=== PATIENT | female | born 1950 | race Caucasian/White ===

== ENCOUNTER 2020-08-18 13:10 | Outpatient (REF) | payer MEDICARE, SELFPAY ==
--- NOTE | 2020-08-18 13:18 | MM_ITS ---
EXAMINATION: MM SCREENING DIGITAL BREAST TOMOSYNTHESIS, BILATERAL CLINICAL INFORMATION: Screening. Asymptomatic. No previous breast surgery. BRCA negative. Family history breast cancer mother, age 79. The lifetime risk of breast cancer based on the Tyrer-Cuzick Model is 7%. COMPARISON: Mammography: 08/09/2019, 08/07/2018, 08/03/2017, 07/28/2016, 07/22/2015 TECHNIQUE: Digital breast tomosynthesis is performed in both the craniocaudal and mediolateral oblique views along with computer-aided detection (CAD). Synthesized 2D images are generated from the tomosynthesis. FINDINGS: There are scattered areas of fibroglandular density (ACR BI-RADS breast composition Category b). The right breast shows no significant changes from prior studies. There is no mass or architectural abnormality. Neither breast shows abnormal calcifications. The bilateral axilla and skin contours are unremarkable. The left CC tomography shows questionable radiating lines posterior outer quadrant approximately 9 cm from nipple. There is no correlate on the MLO view. Suspect summation artifact or incompletely compressed glandular tissue. Patient will be recalled in order to fully characterize. MM/MM tomosynthesis screening BI IMPRESSION: 1. Left: Questionable architectural changes posterior outer quadrant on CC tomography, likely summation artifact or incompletely compressed glandular tissue. 2. Right: No mammographic evidence of malignancy. ASSESSMENT: BI-RADS 0: Incomplete - Need Additional Imaging Evaluation RECOMMENDATION: 1. Additional views of the left breast (3-D spot CC, 3-D rolled CC x2). 2. Targeted ultrasound if warranted after review of the additional views. 3. Radiology department staff will contact the patient for additional imaging. This patient's information was entered into a reminder system with a target due date for their next mammogram.
--- NOTE | 2020-08-18 13:19 | MM_ITS ---
EXAMINATION: BONE DENSITOMETRY CLINICAL INDICATION: Asymptomatic menopausal. COMPARISON: Previous BD dated 08/07/2018 and baseline BD dated 07/08/2008. TECHNIQUE: Using a Photomedex DXA System (software version: 13.1) manufactured by [employer], dual-energy x-ray absorptiometry was performed of the lumbar spine and left hip. The images are of good technical quality. Summary results are attached. FINDINGS: AP SPINE L1-L4 (excluding L2 and L3): The data of L1-L4 has been changed to exclude the L2 and L3 vertebral bodies, because degenerative changes at these levels may cause overestimation of lumbar spine density. Current: BMD 1.004 g/cm2, Z-score 0.5, T-score -1.3, osteopenia, 6.2% decrease from previous, 7.1% decrease from baseline (<5% change is not significant). Prior: BMD 1.070 g/cm2. Baseline: BMD 1.081 g/cm2. LEFT FEMUR, NECK: Current: BMD 0.844 g/cm2, Z-score 0.4, T-score -1.4, osteopenia. Prior: BMD 0.876 g/cm2. Baseline: BMD 0.920 g/cm2. LEFT FEMUR, TOTAL: Current: BMD 0.979 g/cm2, Z-score 1.4, T-score -0.2, normal, 3.2% decrease from previous, 5.5% decrease from baseline (<5% change is not significant). Prior: BMD 1.011 g/cm2. Baseline: BMD 1.036 g/cm2. IDENTIFIED RISK FACTORS: Menopause. HISTORY OF FRACTURE: None listed. MEDICATIONS: Calcium supplements or multivitamin, vitamin D. MM/XR DEXA axial skeleton IMPRESSION: 1. DIAGNOSIS: Osteopenia based on the lowest T-score value of -1.4 in the femoral neck applying World Health Organization criteria. 2. 10-YEAR FRACTURE RISK PREDICTION, FRAX: Major osteoporotic fracture (clinical spine, forearm, hip or shoulder) 10.2%. Hip fracture 1.5%. 3. Treatment Recommendations: NOF guidelines recommend consideration for treatment in postmenopausal women and men age 50 and older presenting with the following: -A hip or vertebral (clinical or morphometric) fracture. -T-score less than or equal to -2.5 at the femoral neck or spine after appropriate evaluation to exclude secondary causes. -Low bone mass at the hip or spine and a 10-year fracture probability by FRAX of greater than or equal to 3% for hip fracture or greater than or equal to 20% for major osteoporotic fracture based on the [place] adapted WHO algorithm. 4. Other Recommendations: All treatment decisions require clinical judgment and consideration of individual patient factors, including patient preferences, comorbidities, previous drug use, risk factors not captured in the FRAX model (e.g. frailty, falls, vitamin D deficiency, increased bone turnover, interval significant decline in bone density) and possible under or overestimation of fracture risk by FRAX. Additional medical evaluation for secondary cause of low bone mineral density may be appropriate. FUTURE SCAN RECOMMENDATION: People with diagnosed cases of osteoporosis or at high risk for fracture should have regular bone mineral density tests. For patients eligible for Medicare, routine testing is allowed once every 2 years. The testing frequency can be increased to one year for patients who have rapidly progressing disease, those who are receiving or discontinuing medical therapy to restore bone mass, or have additional risk factors.
== END 2020-08-18 13:11 | disposition home or self-care (01) ==
LOC: HO.MAMMO 13:10
PROVIDERS: PCP Internal Medicine; Visit Provider Internal Medicine
DX: Z13.820 Encounter for screening for osteoporosis (principal); Z78.0 Asymptomatic menopausal state; M85.80 Other specified disorders of bone density and structure, unspecified site; Z12.31 Encounter for screening mammogram for malignant neoplasm of breast
CPT/HCPCS: 77063; 77067; 77080

== ENCOUNTER 2020-09-21 10:21 | Outpatient (REF) | payer MEDICARE, SELFPAY ==
--- NOTE | 2020-09-21 | US_ITS ---
EXAMINATION: US RETROPERITONEAL LIMITED (RENAL ONLY) CLINICAL INFORMATION: Nephrolithiasis. COMPARISON: Ultrasound renal 09/24/2019. CT abdomen and pelvis 09/28/2018 TECHNIQUE: Real-time imaging of the kidneys. FINDINGS: RIGHT KIDNEY: 11.4 x 4.5 x 6.2 cm (SAG x AP x TRV). The kidney is normal in size, contour, and echogenicity. Renal cortical thickness is normal. No calculi or focal parenchymal lesions. No hydronephrosis. LEFT KIDNEY: 11.7 x 5.0 x 4.3 cm (SAG x AP x TRV). The kidney is normal in size, contour, and echogenicity. Renal cortical thickness is normal. No calculi or focal parenchymal lesions. No hydronephrosis. US/US renal BI IMPRESSION: Unremarkable renal ultrasound. No evidence of hydronephrosis.
== END 2020-09-21 10:22 | disposition home or self-care (01) ==
LOC: HO.HMGCX 10:21
PROVIDERS: Visit Provider Urology
DX: N20.0 Calculus of kidney (principal)
CPT/HCPCS: 76775

== ENCOUNTER 2020-09-22 13:14 | Outpatient (REF) | payer MEDICARE, SELFPAY ==
--- NOTE | 2020-09-22 13:19 | MM_ITS ---
EXAMINATION: MM DIAGNOSTIC DIGITAL BREAST TOMOSYNTHESIS, LEFT CLINICAL INFORMATION: Density lateral aspect left breast COMPARISON: Mammography: August 18, 2020 and studies dating back to May 21, 2012 TECHNIQUE: Digital breast tomosynthesis is performed in Spot compression craniocaudal view as well as medial and lateral rolled craniocaudal views of the left breast. Synthesized 2D images are generated from the tomosynthesis. FINDINGS: There are scattered areas of fibroglandular density (ACR BI-RADS breast composition Category b). There are no significant masses, abnormal calcifications, or other abnormalities. The density on previous study appears be related to superimposition of fibroglandular tissue with no persistent abnormality appreciated. Results are provided to the patient at time of visit by the technologist. MM/MM tomosynthesis diagnostic LT IMPRESSION: No persistent suspicious left breast mammographic finding. ASSESSMENT: BI-RADS 1: Negative RECOMMENDATION: Routine annual mammography screening due in 12 months. This patient's information was entered into a reminder system with a target due date for their next mammogram.
== END 2020-09-22 13:15 | disposition home or self-care (01) ==
LOC: HO.MAMMO 13:14
PROVIDERS: PCP Internal Medicine; Visit Provider Internal Medicine
DX: R92.2 Inconclusive mammogram (principal)
CPT/HCPCS: 77061; 77065

== ENCOUNTER → 2020-09-29 13:16 | Outpatient (BNVA) | payer MEDICARE, SELFPAY | PROVIDERS: PCP Internal Medicine; Visit Provider Urology | DX: N20.0 Calculus of kidney (principal) | CPT/HCPCS: Q3014 ==

== ENCOUNTER 2020-11-10 09:19 | Outpatient (REF) | payer MEDICARE, SELFPAY ==
[2020-11-10 11:19] LABS: Hematocrit 38.5 % (37-47); Hemoglobin 12.5 g/dl (12.0-16.0); Mean Corpuscular HGB Conc 32.5 g/dl (31.0-35.0); Mean Corpuscular Hemoglobin 29.8 pg (27.0-33.0); Mean Corpuscular Volume 91.9 fL (80-98); Mean Platelet Volume 9.9 fL (9.4-12.3); Platelet Count 309 X10*3/uL (160-400); Red Blood Count 4.19 X10*6/uL (4.20-5.50); Red Cell Distribution Width 12.9 % (11.0-16.0)
[2020-11-10 13:51] LABS: Alanine Aminotransferase 10 U/L (0-31); Anion Gap 13 (12-20); Aspartate Amino Transferase 14 U/L (5-31); Blood Urea Nitrogen 12 mg/dL (9-16); Calcium 8.7 mg/dL (8.4-10.2); Carbon Dioxide 26 mmol/L (22-29); Chloride 102 mmol/L (96-108); Cholesterol 177 mg/dL; Estimated Glomerular Filt Rate > 60; Glucose Fasting 95 mg/dL (60-99); HDL Cholesterol 79 mg/dL; LDL Cholesterol Calculated 89 mg/dl; Potassium 4.5 mmol/L (3.3-5.1); Sodium 136 mmol/L (135-145); Triglycerides 47 mg/dL
[2020-11-10 14:08] LABS: Thyroid Stimulating Hormone 1.45 uIU/mL (0.32-4.0); Vitamin D 25-OH Total 33.3 ng/mL (>30)
[2020-11-10 14:21] LABS: Free T4 (Free Thyroxine) 0.91 ng/dL (0.71-1.85)
== END 2020-11-10 09:20 | disposition home or self-care (01) ==
LOC: HO.HMGCLDS 09:19
PROVIDERS: PCP Internal Medicine; Visit Provider Internal Medicine
DX: E03.9 Hypothyroidism, unspecified (principal); M85.80 Other specified disorders of bone density and structure, unspecified site; R42 Dizziness and giddiness
CPT/HCPCS: 36415; 80048; 80061; 82306; 84439; 84443; 84450; 84460; 85027

== ENCOUNTER 2020-11-23 11:53 | Emergency (ER) | payer MEDICARE, SELFPAY ==
[2020-11-23 11:57] VITALS: BP 167/82; PULSE 98; RESP 22; TEMP 36.4; O2SAT 100; BMI 26.0
--- NOTE | 2020-11-23 14:02 | ED.GENADULT ---
HPI - General Adult General Chief complaint: General Medical Stated complaint: FB in throat Time Seen by Provider: 11/23/20 14:01 Source: patient Mode of arrival: ambulatory Limitations: no limitations History of Present Illness HPI narrative: patient states that her pills got stuck in her throat which have never happened. Onset (ago): hour(s) Location: neck Severity: moderate Pain Consistency: constant Related Data Home Medications Medication Instructions Recorded Confirmed calcium citrate 315 mg 1 tab PO DAILY 11/18/20 11/18/20 calcium-vitamin D3 6.25 mcg (250 unit) tablet cholecalciferol (vitamin D3) 50 50 mcg PO DAILY 11/18/20 11/18/20 mcg (2,000 unit) capsule Previous Rx's Medication Instructions Recorded estradiol 10 mcg vaginal tablet 10 mcg VAGINAL 2XW #24 tab 07/17/20 raloxifene 60 mg tablet 60 mg PO DAILY #90 tab 11/09/20 Synthroid 50 mcg tablet See Rx Instructions PO DAILY 90 11/10/20 Days #68 tab NS metronidazole 0.75 % topical cream 1 appl TOPICAL BEDTIME #45 g 11/18/20 Allergies Allergy/AdvReac Type Severity Reaction Status Date / Time meperidine [Demerol] Allergy Unknown Vomiting Verified 11/23/20 11:57 Sulfa (Sulfonamide Allergy Unknown RASH Verified 11/23/20 11:57 Antibiotics) [SULFA (SULFONAMIDE ANTIBIOTICS)] demerol AdvReac Unknown vomiting Uncoded 11/23/20 11:57 Review of Systems Constitutional: Constitutional: Reports no additional constitutional complaints Eyes: Eyes: Reports no additional eye complaints ENT: Denies dizziness Cardiovascular: Cardiovascular: Reports no additional cardiovascular complaints Respiratory: Respiratory: Reports as per HPI Gastrointestinal: Gastrointestinal: Reports no additional gastrointestinal complaints Genitourinary: Genitourinary: Reports no additional female genitourinary complaints Musculoskeletal: Musculoskeletal: Reports no additional musculoskeletal complaints Integumentary/Breasts: Skin/Breast: Denies rash Neurologic: Reports system reviewed and no additional complaints, except as documented, Denies dizziness and Denies Sensory deficit (Neuro) Psychiatric: Psychiatric: Denies anxiety PMF Past Medical History Medical History Acquired hypothyroidism Osteopenia of hip Rosacea Family History Family History Father Prostate cancer Mother Breast cancer Brother Prostate cancer Essential thrombocytosis Maternal Aunt Lung cancer Social History Social History Alcohol intake: current Alcohol intake frequency: holidays/special occasions only Smoking Status: Never smoker Use of substances other than those prescribed or required for medical reasons: No Advance Directives: No Physical Exam Vital Signs: Vital Signs: Last Vital Signs Temp 97.6 F 11/23/20 11:57 Pulse 75 11/23/20 14:32 Resp 18 11/23/20 14:32 BP 157/78 H 11/23/20 14:32 Pulse Ox 97 11/23/20 14:32 Body Mass Index 26.0 Const: Other: in pain Nutritional Appearance: average body habitus Orientation/consciousness: oriented to person and patient oriented x3 Limitations: no limitations HENMT: Head: Yes normal to inspection Ears: external ears normal General nose exam: Normal external nose present Mouth: Normal oral and palatal mucosa present and oropharynx normal Throat: Yes posterior oropharynx normal Eyes: General: appearance normal, both eyes and all related structures Neck: Other: supple Neck: Yes normal visual inspection Chest: Chest palpation & inspection: normal inspection of the chest Resp: Auscultation: clear to auscultation bilaterally Cardio: Jugular venous distension: no JVD Rate: regular rate Rhythm: regular rhythm Heart sounds: S1 normal heart sound present and S2 normal heart sound present GI: Inspection: Yes normal to inspection Palpation (GI): Soft to palpation, nontender and No hepatosplenomegaly present Auscultation: normal bowel sounds : General: Yes no CVA tenderness Back/Spine/Pelvis: Back: no CVA tenderness Skin: General skin exam: no rashes or lesions noted Neuro: General: oriented to person and patient oriented x3 Cranial nerves: Yes CN's II-XII intact bilaterally Motor exam (neuro): 5/5 motor strength present throughout Sensory Exam: No Sensory deficit (Neuro) Extrem: General: Yes normal to inspection Psych: Appearance: grossly normal Course Course Course Narrative: discussed with Dr. Mcnamara will see patient in the office Medical Decision Making MDM Narrative Medical decision making narrative: foreign body resolved Discharge Plan Discharge Clinical Impression: Esophageal foreign body Qualifiers: Encounter type: initial encounter Qualified Code(s): T18.108A - Unspecified foreign body in esophagus causing other injury, initial encounter Patient Disposition: Home, Self-Care Instructions: Esophageal Foreign Body (ED) Additional Instructions: soft diet liquid diet Prescriptions: No Action estradiol [Yuvafem] 10 mcg tablet 10 mcg vaginal 2XW Qty: 24 RF: 1 raloxifene 60 mg tablet 60 mg PO DAILY Qty: 90 RF: 3 levothyroxine [Synthroid] 50 mcg tablet See Rx Instructions PO DAILY 90 Days Qty: 68 RF: 4 cholecalciferol (vitamin D3) 50 mcg (2,000 unit) capsule 50 mcg PO DAILY RF: 0 calcium citrate-vitamin D3 [Citracal + D Maximum] 315 mg-6.25 mcg (250 unit) tablet 1 tab PO DAILY RF: 0 metronidazole 0.75 % cream 1 appl topical BEDTIME Qty: 45 RF: 1 Referrals: Jason Mcnamara [Physician] - 2 days
[2020-11-23] MEDS: Lidocaine HCl Viscous 2 % 15 ML SOLUTION MUCOUS MEM (14:28)
[2020-11-23] MEDS: Magnesium Hydrox/Alum Hydrox 30 ML ORAL.SUSP PO (14:28)
[2020-11-23] MEDS: PHENobarb/Hyoscy/Atropine/Scop 10 ML ELIXIR PO (14:30)
[2020-11-23 14:32] VITALS: BP 157/78; PULSE 75; RESP 18; O2SAT 97
--- NOTE | 2020-11-23 14:33 | PC.NURSE ---
pt sitting on the edge of the stretcher, skin pwd, respirations even and unlabored, pt states that around 0900 this morning pt took her medications and feels like something got stuck in her throat, originally had nausea but was given zofran at triage and reports that the nausea has gotten better, now just having pain in the throat, pt able to swallow her saliva with out any difficulties, and kept down a cup of water, vs stable sating at 100% on room air.
== END 2020-11-23 16:00 | disposition home or self-care (01) ==
PROVIDERS: Emergency Provider Emergency Medicine; PCP Internal Medicine
DX: R47.02 Dysphasia (principal); T17.208A Unspecified foreign body in pharynx causing other injury, initial encounter; X58.XXXA Exposure to other specified factors, initial encounter; Y93.9 Activity, unspecified; Y92.9 Unspecified place or not applicable; Y99.9 Unspecified external cause status; Z79.899 Other long term (current) drug therapy

== ENCOUNTER 2020-11-23 21:01 | Emergency (ER) | payer MEDICARE, SELFPAY ==
[2020-11-23 21:18] VITALS: BP 160/78; PULSE 79; RESP 18; TEMP 36.7; O2SAT 97; BMI 26.0
--- NOTE | 2020-11-23 22:18 | ED_ITS ---
HPI - General Adult General Chief complaint: General Medical Stated complaint: DISCOMFORT IN THROAT Time Seen by Provider: 11/23/20 22:10 Source: patient Mode of arrival: ambulatory Limitations: no limitations History of Present Illness HPI narrative: Patient with no significant throat problems in the past took 2 citracal tablet at 09:00 since then noticed foreign body sensation in the throat tried Tylenol with mild help was seen here earlier today and was given lidocaine viscous advised to follow-up with sugar cane grower tomorrow patient able to swallow and drink fluids still feel pain in upper part of the throat Onset (ago): hour(s) Related Data Home Medications Medication Instructions Recorded Confirmed calcium citrate 315 mg 1 tab PO DAILY 11/18/20 11/18/20 calcium-vitamin D3 6.25 mcg (250 unit) tablet cholecalciferol (vitamin D3) 50 50 mcg PO DAILY 11/18/20 11/18/20 mcg (2,000 unit) capsule Previous Rx's Medication Instructions Recorded estradiol 10 mcg vaginal tablet 10 mcg VAGINAL 2XW #24 tab 07/17/20 raloxifene 60 mg tablet 60 mg PO DAILY #90 tab 11/09/20 Synthroid 50 mcg tablet See Rx Instructions PO DAILY 90 11/10/20 Days #68 tab NS metronidazole 0.75 % topical cream 1 appl TOPICAL BEDTIME #45 g 11/18/20 Allergies Allergy/AdvReac Type Severity Reaction Status Date / Time meperidine [Demerol] Allergy Unknown Vomiting Verified 11/23/20 21:18 Sulfa (Sulfonamide Allergy Unknown RASH Verified 11/23/20 21:18 Antibiotics) [SULFA (SULFONAMIDE ANTIBIOTICS)] demerol AdvReac Unknown vomiting Uncoded 11/23/20 11:57 Review of Systems Review of Systems: Constitutional : No Weight loss, No Fever, No Chills ENT/Mouth : Throat pain+, No Rhinorrhea Eyes: No Eye Pain, No Swelling Cardiovascular : No Chest Pain, no palpitations Respiratory : No Cough, No Sputum, no shortness of breath Gastrointestinal : no Nausea, No Vomiting, No Diarrhea, No abdominal Pain, no black stools Genitourinary : No Dysuria, No Urinary Frequency Musculoskeletal : No joint pain, No Myalgias, No Joint Swelling Skin : No Skin Lesions, No rash Neuro : No Weakness, No Numbness, No Dizziness, No Headache Psych : No Anxiety/Panic, No Depression Heme/Lymph: No Bruising, No Lymphadenopathy Endocrine : No Polyuria, No Polydipsia All other systems reviewed and are negative [facility] Past Medical History Medical History Acquired hypothyroidism Osteopenia of hip Rosacea Family History Family History Father Prostate cancer Mother Breast cancer Brother Prostate cancer Essential thrombocytosis Maternal Aunt Lung cancer Social History Social History Alcohol intake: former Smoking Status: Never smoker Use of substances other than those prescribed or required for medical reasons: No Advance Directives: No Advance Directives Information Provided: Yes Physical Exam Vital Signs: Vital Signs: Last Vital Signs Temp 98.0 F 11/23/20 21:18 Pulse 79 11/23/20 21:18 Resp 18 11/23/20 21:18 BP 160/78 H 11/23/20 21:18 Pulse Ox 97 11/23/20 21:18 Body Mass Index 26.0 Appearance: Alert. Oriented X3. No acute distress. Eyes: Pupils equal, round and reactive to light. ENT: Pharynx normal. Neck: Normal inspection. Neck supple. No stridor CVS: Normal heart rate and rhythm. Pulses normal. Respiratory: No respiratory distress. Breath sounds normal. Abdomen: Soft and nontender. Bowel sounds are present, no mass palpable, no CVA tenderness Skin: Skin warm and dry. Normal skin color. Normal skin turgor. Extremities: No lower extremity edema. Neuro: Oriented X 3. No motor deficit. No sensory deficit. Medical Decision Making MDM Narrative Medical decision making narrative: Patient with foreign bodies sensation in the throat or odynophagia secondary to big Citrucel tablets she took in the morning likely irritation able to swallow and drink plan to see Dr. Mcnamara tomorrow. Patient felt better after Maalox and liquid Motrin and lidocaine viscous Discharge Plan Discharge Clinical Impression: Foreign body sensation in throat Patient Disposition: Home, Self-Care Instructions: Dysphagia (ED) Additional Instructions: You have foreign body sensation in the throat likely from irritation of the tablet Citrucel. Drink plenty of fluids see sugar cane grower as scheduled Maalox/Mylanta as advised Prescriptions: No Action estradiol [Yuvafem] 10 mcg tablet 10 mcg vaginal 2XW Qty: 24 RF: 1 raloxifene 60 mg tablet 60 mg PO DAILY Qty: 90 RF: 3 levothyroxine [Synthroid] 50 mcg tablet See Rx Instructions PO DAILY 90 Days Qty: 68 RF: 4 cholecalciferol (vitamin D3) 50 mcg (2,000 unit) capsule 50 mcg PO DAILY RF: 0 calcium citrate-vitamin D3 [Citracal + D Maximum] 315 mg-6.25 mcg (250 unit) tablet 1 tab PO DAILY RF: 0 metronidazole 0.75 % cream 1 appl topical BEDTIME Qty: 45 RF: 1
[2020-11-23] MEDS: Ibuprofen Oral Susp 200 MG/10 ML ORAL.SUSP 400 MG PO (22:55)
[2020-11-23] MEDS: Lidocaine HCl Viscous 2 % 15 ML SOLUTION MUCOUS MEM (22:55)
[2020-11-23] MEDS: Magnesium Hydrox/Alum Hydrox 30 ML ORAL.SUSP PO (23:07)
== END 2020-11-23 23:15 | disposition home or self-care (01) ==
PROVIDERS: Emergency Provider Internal Medicine; PCP Internal Medicine
DX: R07.0 Pain in throat (principal); R09.89 Other specified symptoms and signs involving the circulatory and respiratory systems; Z79.899 Other long term (current) drug therapy
CPT/HCPCS: 99283; 99284

== ENCOUNTER 2020-11-30 09:24 | Outpatient (REF) | payer MEDICARE, SELFPAY ==
--- NOTE | ~2020-11-30 | FL_ITS ---
EXAMINATION: FL BARIUM SWALLOW CLINICAL INFORMATION: Esophageal dysphagia. COMPARISON: None TECHNIQUE: Barium swallow examination is performed using fluoroscopic evaluation in addition to multiple fluoroscopic spot views. The patient is imaged both upright and prone and using both thick and thin sulfate along with a half-inch diameter barium tablet Fluoroscopy Time: 1.6 minutes. DAP: 2.769 Gycm2. Images: 50. FINDINGS: Patient swallowed thin and thick barium and half-inch diameter barium tablet without difficulty. There is normal elevation of the soft palate while saying candy. There is normal apposition of the vocal cords while saying E. No nasopharyngeal reflux or tracheal aspiration was identified. No cricopharyngeal hypertrophy or Zenker's diverticulum. No persistent esophageal stricture is identified. No mucosal abnormality is seen. There was mild transient gastroesophageal reflux within the distal third of the esophagus with water siphon test. FL/FL barium swallow IMPRESSION: No significant abnormality.
== END 2020-11-30 09:25 | disposition home or self-care (01) ==
LOC: HO.XRAY 09:24
PROVIDERS: PCP Internal Medicine; Visit Provider Internal Medicine
DX: R13.19 Other dysphagia (principal)
CPT/HCPCS: 74220

== ENCOUNTER 2021-04-28 11:37 | Outpatient (REF) | payer MEDICARE, SELFPAY ==
[2021-04-28 14:41] LABS: Thyroid Stimulating Hormone 1.25 uIU/mL (0.32-4.0); Vitamin D 25-OH Total 40.5 ng/mL (>30)
== END 2021-04-28 11:38 | disposition home or self-care (01) ==
LOC: HO.HMGCLDS 11:37
PROVIDERS: PCP Internal Medicine; Visit Provider Internal Medicine
DX: E03.9 Hypothyroidism, unspecified (principal); M85.859 Other specified disorders of bone density and structure, unspecified thigh; Z78.0 Asymptomatic menopausal state
CPT/HCPCS: 36415; 82306; 84439; 84443

== ENCOUNTER 2021-06-11 09:16 | Day surgery (SDC) | payer MEDICARE, SELFPAY ==
[2021-06-07 15:30] VITALS: BMI 27.0
--- NOTE | 2021-06-10 11:35 | HO.ANESPROP2 ---
Documented by User: Bella Woodard NP 06/10/21 11:35 HPI - Anesthesia Eval Consult details Narrative: 71yo F for Colonoscopy PMFSH Active Problems Active Problems: All Active Problems (Updated 11/24/20 @ 00:01 by Theo Golden) Nephrolithiasis (Acute) Osteopenia of hip (Acute) Rosacea (Acute) Acquired hypothyroidism (Acute) Past Medical History Medical History Acquired hypothyroidism Osteopenia of hip Rosacea Family History Family History Father Prostate cancer Mother Breast cancer Brother Prostate cancer Essential thrombocytosis Maternal Aunt Lung cancer Surgical History Surgical History (Updated 06/07/21 @ 15:18 by Katherine Jalloh RN) Hx of colonoscopy No pertinent past surgical history Social History Social History Are you a primary respiratory care instructor to a significant other at home: No Do you presently have visiting nurse or other home services: No Alcohol intake: former Patient Tobacco Use Status: Never used Tobacco Use of substances other than those prescribed or required for medical reasons: No Have you been hit, kicked, punched, or otherwise hurt by someone within the past year? If so, by whom?: No Are you DNR?: No Advance Directives: No Advance Directives Information Provided: No Advance Directives on File: No Recently lost weight without trying: No Eating poorly because of decreased appetite: No Nutrition Risks: No Nutritional Risk Patient : No Meds Allergies Allergy/AdvReac Type Severity Reaction Status Date / Time meperidine [Demerol] Allergy Unknown Vomiting Verified 06/07/21 15:23 Sulfa (Sulfonamide Allergy Unknown RASH Verified 06/07/21 15:23 Antibiotics) [SULFA (SULFONAMIDE ANTIBIOTICS)] Home Medications Medication Instructions Recorded Confirmed Last Taken Type calcium citrate 315 mg 1 tab PO DAILY 11/18/20 06/07/21 Unknown History calcium-vitamin D3 6.25 mcg (250 unit) tablet (Citracal + Vitamin D Maximum) cholecalciferol (vitamin D3) 50 50 mcg PO DAILY 11/18/20 06/07/21 Unknown History mcg (2,000 unit) capsule Exam Exam Date and Time: June 10, 2021 1135 Height,Weight and Vital Signs: Height 5 ft 1 in Weight 64.864 kg Assessment and Plan Assessment Anesthesia Assessment: Chart Reviewed Documented by User: Rocío Rdz MD 06/11/21 09:54 [facility] Past Medical History Medical History Acquired hypothyroidism Osteopenia of hip Rosacea Family History Family History Father Prostate cancer Mother Breast cancer Brother Prostate cancer Essential thrombocytosis Maternal Aunt Lung cancer Family history of problems with anesthesia: No Surgical History Surgical History (Updated 06/07/21 @ 15:18 by Katherine Jalloh, RN) Hx of colonoscopy No pertinent past surgical history History of Problems with Anesthesia: No Social History Social History Are you a primary respiratory care instructor to a significant other at home: No Do you presently have visiting nurse or other home services: No Alcohol intake: former Patient Tobacco Use Status: Never used Tobacco Use of substances other than those prescribed or required for medical reasons: No Have you been hit, kicked, punched, or otherwise hurt by someone within the past year? If so, by whom?: No Are you DNR?: No Advance Directives: No Advance Directives Information Provided: No Advance Directives on File: No Recently lost weight without trying: No Eating poorly because of decreased appetite: No Nutrition Risks: No Nutritional Risk Patient : No Meds Allergies Allergy/AdvReac Type Severity Reaction Status Date / Time meperidine [Demerol] Allergy Unknown Vomiting Verified 06/07/21 15:23 Sulfa (Sulfonamide Allergy Unknown RASH Verified 06/07/21 15:23 Antibiotics) [SULFA (SULFONAMIDE ANTIBIOTICS)] Home Medications Medication Instructions Recorded Confirmed Last Taken Type calcium citrate 315 mg 1 tab PO DAILY 11/18/20 06/07/21 Unknown History calcium-vitamin D3 6.25 mcg (250 unit) tablet (Citracal + Vitamin D Maximum) cholecalciferol (vitamin D3) 50 50 mcg PO DAILY 11/18/20 06/07/21 Unknown History mcg (2,000 unit) capsule Exam Airway Mallampati Class: III TM Dist: >3cm Neck ROM: Full Heart: rrr Lungs: cta Assessment and Plan Assessment Anesthesia Assessment: Anesthesia Plan Discussed and Chart Reviewed Final Anesthetic Review Family History of Problems with Anesthesia: No History of Problems with Anesthesia: No NPO: Yes ASA Class: II Final Preanesthetic Review: No Changes in Pt Med Stat, Meds/Allgs Chart Reviewed and Consent Obtained/Reviewed Patient Risk: Intermediate Procedure Risk: Intermediate Anesthetic Plan Anesthetic Plan: MAC: Disposition: Standard PACU
[2021-06-11 09:51] VITALS: BP 143/81; PULSE 84; RESP 20; TEMP 36.9; O2SAT 99
[2021-06-11] MEDS: Lactated Ringers 1,000 ML 100 ML IVCONT (09:53)
[2021-06-11 11:50] VITALS: BP 108/63; PULSE 76; RESP 16; TEMP 36.6; O2SAT 98
--- NOTE | 2021-06-11 11:51 | P.BOP_ITS ---
Brief Operative Note Date of Service: 06/11/21 Pre-op diagnosis: Screening Post-op diagnosis: other (Diverticulosis, Internal hemorrhoids) Procedure: Colonoscopy to the cecum and TI. Surgeon: Jason Mcnamara Anesthesia: MAC Was an Professor Of Biology used for this Procedure?: No Estimated blood loss (mL): 0 Pathology: none sent Condition: stable Disposition: PACU
[2021-06-11 12:04] VITALS: BP 103/62; PULSE 71; RESP 16; TEMP 36.6; O2SAT 96
--- NOTE | 2021-06-11 12:30 | OP_ITS ---
SURGEON: Jason Mcnamara MD INDICATIONS: The patient presents for followup of colorectal cancer screening and personal history of tubular adenoma of the colon. Full consent has been obtained from her for this, including risks of bleeding and perforation. PREOPERATIVE DIAGNOSIS: POSTOPERATIVE DIAGNOSIS: PROCEDURE PERFORMED: Colonoscopy to cecum. ESTIMATED BLOOD LOSS: COMPLICATIONS: ANESTHESIA: Monitored anesthesia care. ASSISTANTS: SPECIMENS: PREOPERATIVE DIAGNOSES: Colorectal cancer screening and personal history of tubular adenoma of the colon. POSTOPERATIVE DIAGNOSES: Colorectal cancer screening and personal history of tubular adenoma of the colon, sigmoid diverticulosis, and small internal hemorrhoids. DESCRIPTION OF PROCEDURE: The patient was placed in the left lateral decubitus position. The digital rectal exam revealed no abnormalities. The Olympus video pediatric colonoscope was entered into the rectum and advanced easily to the cecum. Once in the cecum, I did identify normal-appearing cecal pouch with appendiceal orifice and a normal-appearing ileocecal valve. The terminal ileum was cannulated and appeared normal. The scope was withdrawn back in the colon. The entire cecum and ileocecal valve appeared normal. The scope was slowly withdrawn assessing all mucosal surfaces carefully. Preparation was excellent. I did not visualize any sign of polyps, colitis, nor angiodysplasia. There was a mild amount of sigmoid diverticulosis. In the rectum, scope was retroflexed visualizing minimal internal hemorrhoids, but no other pathology. The rectal mucosa appeared normal. The scope was straightened out and withdrawn from the patient. She tolerated the procedure well and was returned to the recovery area in stable condition. IMPRESSION: 1. Mild sigmoid diverticulosis. 2. Small internal hemorrhoids. PLAN: Given today's negative colonoscopy, and just minimal findings on her previous colonoscopies, I would think she would not need any further screening colonoscopies at this point. As such, she will see me again on a p.r.n. basis. MD LB Cobian/RILEY / [phone] MTDJeanmarie
== END 2021-06-11 12:30 | disposition home or self-care (01) ==
PROVIDERS: PCP Internal Medicine; Visit Provider Internal Medicine
PROC: 0DJD8ZZ Inspection of Lower Intestinal Tract, Via Natural or Artificial Opening Endoscopic (ICD-10-PCS; CPT 45378; principal; 2021-06-11 10:40)
DX: Z12.11 Encounter for screening for malignant neoplasm of colon (principal); Z86.010 Personal history of colon polyps; K57.30 Diverticulosis of large intestine without perforation or abscess without bleeding; K64.8 Other hemorrhoids; M85.859 Other specified disorders of bone density and structure, unspecified thigh; E03.9 Hypothyroidism, unspecified; Z79.899 Other long term (current) drug therapy
CPT/HCPCS: G0105

== ENCOUNTER 2021-08-24 10:22 | Outpatient (REF) | payer MEDICARE, SELFPAY ==
--- NOTE | ~2021-08-24 | MM_ITS ---
EXAMINATION: MM SCREENING DIGITAL BREAST TOMOSYNTHESIS, BILATERAL CLINICAL INFORMATION: Screening. Asymptomatic. The lifetime risk of breast cancer based on the Tyrer-Cuzick Model is 7%. COMPARISON: Mammography: 09/22/2020, 08/18/2020, 08/09/2019, 08/07/2018, 08/03/2017, 07/28/2016, 07/22/2015, 07/11/2014. TECHNIQUE: Digital breast tomosynthesis is performed in both the craniocaudal and mediolateral oblique views along with computer-aided detection (CAD). Synthesized 2D images are generated from the tomosynthesis. FINDINGS: There are scattered areas of fibroglandular density (ACR BI-RADS breast composition Category b). Parenchymal pattern is similar to prior studies. There is no interval mass or architectural abnormality or developing density. There is benign chronic parenchymal asymmetry mid outer right breast similar to multiple prior studies. There are no abnormal calcifications. The axilla and skin contours are unremarkable. No significant changes. MM/MM tomosynthesis screening BI IMPRESSION: No mammographic evidence of malignancy. ASSESSMENT: BI-RADS 2: Benign RECOMMENDATION: Routine annual mammography screening. This patient's information was entered into a reminder system with a target due date for their next mammogram.
== END 2021-08-24 10:23 | disposition home or self-care (01) ==
LOC: HO.MAMMO 10:22
PROVIDERS: PCP Internal Medicine; Visit Provider Internal Medicine
DX: Z12.31 Encounter for screening mammogram for malignant neoplasm of breast (principal)
CPT/HCPCS: 77063; 77067

== ENCOUNTER 2021-09-27 12:15 | Outpatient (REF) | payer MEDICARE, SELFPAY ==
--- NOTE | ~2021-09-27 | US_ITS ---
EXAMINATION: US RETROPERITONEAL LIMITED (RENAL ONLY) CLINICAL INFORMATION: Calculus of kidney. COMPARISON: Bilateral renal ultrasound most recent dated 09/21/2020. CT abdomen and pelvis without contrast dated 09/28/2018. TECHNIQUE: Real-time imaging of the kidneys. FINDINGS: RIGHT KIDNEY: 10.0 x 3.7 x 5.7 cm (SAG x AP x TRV). The kidney is normal in size, contour, and echogenicity. Renal cortical thickness is normal. No calculi or focal parenchymal lesions. There is mild fullness of the right renal collecting system. No hydronephrosis. LEFT KIDNEY: 11.0 x 4.7 x 4.9 cm (SAG x AP x TRV). The kidney is normal in size, contour, and echogenicity. Renal cortical thickness is normal. No calculi or focal parenchymal lesions. No hydronephrosis. US/US renal BI IMPRESSION: No stone seen by ultrasound.
== END 2021-09-27 12:16 | disposition home or self-care (01) ==
LOC: HO.US 12:15
PROVIDERS: PCP Internal Medicine; Visit Provider Urology
DX: N20.0 Calculus of kidney (principal)
CPT/HCPCS: 76775

== ENCOUNTER → 2021-09-29 08:36 | Outpatient (BNVA) | payer MEDICARE, SELFPAY | PROVIDERS: PCP Internal Medicine; Visit Provider Urology | DX: N20.0 Calculus of kidney (principal) | CPT/HCPCS: Q3014 ==

== ENCOUNTER 2021-12-13 08:44 | Outpatient (REF) | payer MEDICARE, SELFPAY ==
[2021-12-13 12:25] LABS: Alanine Aminotransferase 11 U/L (0-31); Anion Gap 8 (12-20); Aspartate Amino Transferase 15 U/L (5-31); Blood Urea Nitrogen 13 mg/dL (9-16); Calcium 9.1 mg/dL (8.4-10.2); Carbon Dioxide 30 mmol/L (22-29); Chloride 101 mmol/L (96-108); Cholesterol 183 mg/dL; Estimated Glomerular Filt Rate > 60; Glucose Fasting 95 mg/dL (60-99); HDL Cholesterol 77 mg/dL; LDL Cholesterol Calculated 95 mg/dl; Potassium 4.6 mmol/L (3.3-5.1); Sodium 134 mmol/L (135-145); Triglycerides 58 mg/dL
[2021-12-13 12:27] LABS: Free T4 (Free Thyroxine) 0.98 ng/dL (0.71-1.85); Thyroid Stimulating Hormone 1.66 uIU/mL (0.32-4.0); Vitamin D 25-OH Total 39.3 ng/mL (>30)
== END 2021-12-13 08:45 | disposition home or self-care (01) ==
LOC: HO.HMGCLDS 08:44
PROVIDERS: Visit Provider Internal Medicine
DX: E03.9 Hypothyroidism, unspecified (principal); I10 Essential (primary) hypertension; M85.859 Other specified disorders of bone density and structure, unspecified thigh; Z78.0 Asymptomatic menopausal state
CPT/HCPCS: 36415; 80048; 80061; 82306; 84439; 84443; 84450; 84460

== ENCOUNTER 2022-06-24 08:48 | Outpatient (REF) | payer MEDICARE, SELFPAY ==
[2022-06-24 12:38] LABS: Free T4 (Free Thyroxine) 1.04 ng/dL (0.71-1.85); Thyroid Stimulating Hormone 1.23 uIU/mL (0.32-4.0); Vitamin D 25-OH Total 39.9 ng/mL (>30)
[2022-06-24 12:48] LABS: Anion Gap 14 (12-20); Blood Urea Nitrogen 13 mg/dL (9-16); Calcium 9.1 mg/dL (8.4-10.2); Carbon Dioxide 26 mmol/L (22-29); Chloride 101 mmol/L (96-108); Cholesterol 182 mg/dL; Estimated Glomerular Filt Rate > 60; Glucose Fasting 97 mg/dL (60-99); HDL Cholesterol 72 mg/dL; LDL Cholesterol Calculated 93 mg/dl; Sodium 137 mmol/L (135-145); Triglycerides 87 mg/dL
== END 2022-06-24 08:49 | disposition home or self-care (01) ==
LOC: HO.HMGCLDS 08:48
PROVIDERS: PCP Internal Medicine; Visit Provider Internal Medicine
DX: M85.89 Other specified disorders of bone density and structure, multiple sites (principal); N95.9 Unspecified menopausal and perimenopausal disorder; E03.9 Hypothyroidism, unspecified
CPT/HCPCS: 36415; 80048; 80061; 82306; 84439; 84443

== ENCOUNTER 2022-08-30 10:13 | Outpatient (REF) | payer MEDICARE, SELFPAY ==
--- NOTE | ~2022-08-30 | MM_ITS ---
EXAMINATION: MM SCREENING DIGITAL BREAST TOMOSYNTHESIS, BILATERAL CLINICAL INFORMATION: Screening. Asymptomatic. The lifetime risk of breast cancer based on the Tyrer-Cuzick Model is 7%. COMPARISON: Mammography: 08/24/2021, 01/20/2021, 08/18/2020, 08/09/2019 TECHNIQUE: Digital breast tomosynthesis is performed in both the craniocaudal and mediolateral oblique views along with computer-aided detection (CAD). Synthesized 2D images are generated from the tomosynthesis. FINDINGS: There are scattered areas of fibroglandular density (ACR BI-RADS breast composition Category b). There are no significant masses, abnormal calcifications, or other abnormalities. Parenchymal pattern is similar to prior studies. There is no developing density or architectural abnormality. The axilla and skin contours are unremarkable. No significant changes. MM/MM tomosynthesis screening BI IMPRESSION: No mammographic evidence of malignancy. ASSESSMENT: BI-RADS 1: Negative RECOMMENDATION: Routine annual mammography screening. This patient's information was entered into a reminder system with a target due date for their next mammogram.
--- NOTE | ~2022-08-30 | MM_ITS ---
EXAMINATION: BONE DENSITOMETRY CLINICAL INDICATION: Osteoporosis. COMPARISON: Previous BD dated 08/18/2020 and baseline BD dated 07/08/2008. TECHNIQUE: Using a [employer] DXA System (software version: 13.1) manufactured by [employer], dual-energy x-ray absorptiometry was performed of the lumbar spine and left hip. The images are of good technical quality. Summary results are attached. FINDINGS: AP SPINE L1-L4: Current: BMD 1.178 g/cm2, Z-score 1.8, T-score 0.0, normal, 6.5% increase from previous, 7.3% increase from baseline (<5% change is not significant). Prior: BMD 1.106 g/cm2. Baseline: BMD 1.098 g/cm2. LEFT FEMUR, NECK: Current: BMD 0.847 g/cm2, Z-score 0.5, T-score -1.4, osteopenia. Prior: BMD 0.844 g/cm2. Baseline: BMD 0.920 g/cm2. LEFT FEMUR, TOTAL: Current: BMD 0.941 g/cm2, Z-score 1.2, T-score -0.5, normal, 3.9% decrease from previous, 9.2% decrease from baseline (<5% change is not significant). Prior: BMD 0.979 g/cm2. Baseline: BMD 1.036 g/cm2. IDENTIFIED RISK FACTORS: Early menopause, secondary osteoporosis. HISTORY OF FRACTURE: None listed. MEDICATIONS: Calcium, vitamin D, ERT/SERMS. MM/XR DEXA axial skeleton IMPRESSION: 1. DIAGNOSIS: Osteopenia based on the lowest T-score value of -1.4 in the femoral neck applying World Health Organization criteria. 2. 10-YEAR FRACTURE RISK PREDICTION, FRAX: Not performed in this patient on estrogen or bone building treatments. 3. Treatment Recommendations: NOF guidelines recommend consideration for treatment in postmenopausal women and men age 50 and older presenting with the following: -A hip or vertebral (clinical or morphometric) fracture. -T-score less than or equal to -2.5 at the femoral neck or spine after appropriate evaluation to exclude secondary causes. -Low bone mass at the hip or spine and a 10-year fracture probability by FRAX of greater than or equal to 3% for hip fracture or greater than or equal to 20% for major osteoporotic fracture based on the [place] adapted WHO algorithm. 4. Other Recommendations: All treatment decisions require clinical judgment and consideration of individual patient factors, including patient preferences, comorbidities, previous drug use, risk factors not captured in the FRAX model (e.g. frailty, falls, vitamin D deficiency, increased bone turnover, interval significant decline in bone density) and possible under or overestimation of fracture risk by FRAX. Additional medical evaluation for secondary cause of low bone mineral density may be appropriate. FUTURE SCAN RECOMMENDATION: People with diagnosed cases of osteoporosis or at high risk for fracture should have regular bone mineral density tests. For patients eligible for Medicare, routine testing is allowed once every 2 years. The testing frequency can be increased to one year for patients who have rapidly progressing disease, those who are receiving or discontinuing medical therapy to restore bone mass, or have additional risk factors.
== END 2022-08-30 10:14 | disposition home or self-care (01) ==
LOC: HO.MAMMO 10:13
PROVIDERS: PCP Internal Medicine; Visit Provider Internal Medicine
DX: Z12.31 Encounter for screening mammogram for malignant neoplasm of breast (principal); Z13.820 Encounter for screening for osteoporosis; M81.0 Age-related osteoporosis without current pathological fracture; Z78.0 Asymptomatic menopausal state
CPT/HCPCS: 77063; 77067; 77080

== ENCOUNTER 2022-09-22 08:51 | Outpatient (REF) | payer MEDICARE, SELFPAY ==
--- NOTE | ~2022-09-22 | US_ITS ---
EXAMINATION: US RETROPERITONEAL LIMITED (RENAL ONLY) CLINICAL INFORMATION: Calculus of kidney. COMPARISON: Renal ultrasound 09/27/2021 TECHNIQUE: Real-time imaging of the kidneys. FINDINGS: RIGHT KIDNEY: 10.6 x 3.6 x 5.2 cm (SAG x AP x TRV). The kidney is normal in size, contour, and echogenicity. Renal cortical thickness is normal. No calculi or focal parenchymal lesions. Right renal pelviectasis similar to prior. No sabina hydronephrosis. LEFT KIDNEY: 10.9 x 4.7 x 3.9 cm (SAG x AP x TRV). The kidney is normal in size, contour, and echogenicity. Renal cortical thickness is normal. No calculi or focal parenchymal lesions. No hydronephrosis. US/US renal BI IMPRESSION: Right renal pelviectasis similar to prior. No sabina hydronephrosis. No nephrolithiasis.
== END 2022-09-22 08:52 | disposition home or self-care (01) ==
LOC: HO.US 08:51
PROVIDERS: PCP Internal Medicine; Visit Provider Urology
DX: N20.0 Calculus of kidney (principal)
CPT/HCPCS: 76775

== ENCOUNTER → 2022-09-29 11:26 | Outpatient (BNVA) | payer MEDICARE, SELFPAY | PROVIDERS: PCP Internal Medicine; Visit Provider Urology | DX: N20.0 Calculus of kidney (principal) | CPT/HCPCS: 99212 ==

== ENCOUNTER 2022-10-11 10:54 | Outpatient (REF) | payer MEDICARE, SELFPAY ==
--- NOTE | ~2022-10-11 | FL_ITS ---
EXAMINATION: XR GI SERIES CLINICAL INFORMATION: Epigastric pain COMPARISON: None TECHNIQUE: Upper GI was performed using thin and thick barium and effervescent granules FINDINGS: There is significant gastroesophageal reflux. There is mucosal irregularity of the distal esophagus suggestive of mild esophagitis. No hernia is seen. The stomach and duodenum are normal-appearing. No fold thickening, mass, ulcer or stricture is seen. FLUOROSCOPY TIME: 0.6 minutes DOSE AREA PRODUCT: 3 santiago per centimeter squared. 30 saved fluoroscopic images. FL/FL upper GI series IMPRESSION: Significant gastroesophageal reflux and question mild distal esophagitis.
== END 2022-10-11 10:55 | disposition home or self-care (01) ==
LOC: HO.XRAY 10:54
PROVIDERS: PCP Internal Medicine; Visit Provider Internal Medicine
DX: R10.13 Epigastric pain (principal); R14.0 Abdominal distension (gaseous)
CPT/HCPCS: 74240

== ENCOUNTER 2022-10-17 08:27 | Outpatient (REF) | payer MEDICARE, SELFPAY ==
--- NOTE | ~2022-10-17 | US_ITS ---
EXAMINATION: US ABDOMEN COMPLETE CLINICAL INFORMATION: Epigastric pain. COMPARISON: Ultrasound retroperitoneal limited (renal only) 09/22/2022 and 09/27/2021. CT abdomen and pelvis without contrast 09/28/2018. TECHNIQUE: Real-time imaging of the abdominal viscera. FINDINGS: PANCREAS: Normal. ABDOMINAL AORTA: The proximal, mid, and distal segments are normal in caliber. INFERIOR VENA CAVA: Visualized portions are normal. LIVER: Normal. The liver is normal in size. The liver contour is normal. Parenchymal echogenicity is normal. No focal hepatic lesion. There is no intrahepatic biliary duct dilatation seen. GALLBLADDER: Normal. The gallbladder is physiologically distended without evidence of stones, sludge, polyps, wall thickening or pericholecystic fluid. COMMON BILE DUCT: Normal in caliber measuring 0.2 cm in diameter. RIGHT KIDNEY: There is mild right kidney fullness. No hydronephrosis. No renal calculi or focal parenchymal lesions. The kidney measures 9.8 cm in maximum dimension. LEFT KIDNEY: Normal. No hydronephrosis. No renal calculi or focal parenchymal lesions. The kidney measures 10.0 cm in maximum dimension. SPLEEN: Normal. The spleen measures 9.2 cm in maximum dimension. FREE FLUID: None. US/US abdomen complete IMPRESSION: Unremarkable complete abdomen ultrasound. Mild right kidney pelvic fullness.
== END 2022-10-17 08:28 | disposition home or self-care (01) ==
LOC: HO.HMGCX 08:27
PROVIDERS: PCP Internal Medicine; Visit Provider Internal Medicine
DX: R10.13 Epigastric pain (principal); R14.0 Abdominal distension (gaseous)
CPT/HCPCS: 76700

== ENCOUNTER 2023-01-05 09:56 | Outpatient (REF) | payer MEDICARE, SELFPAY ==
[2023-01-05 12:03] LABS: Cholesterol 173 mg/dL; Glucose Fasting 93 mg/dL (60-99); HDL Cholesterol 81 mg/dL; LDL Cholesterol Calculated 83 mg/dl; Triglycerides 46 mg/dL
[2023-01-05 12:23] LABS: Free T4 (Free Thyroxine) 1.04 ng/dL (0.71-1.85); Thyroid Stimulating Hormone 1.43 uIU/mL (0.32-4.0); Vitamin D 25-OH Total 45.9 ng/mL (>30)
== END 2023-01-05 09:57 | disposition home or self-care (01) ==
LOC: HO.HMGCLDS 09:56
PROVIDERS: PCP Internal Medicine; Visit Provider Internal Medicine
DX: E03.9 Hypothyroidism, unspecified (principal); M85.89 Other specified disorders of bone density and structure, multiple sites
CPT/HCPCS: 36415; 80061; 82306; 82947; 84439; 84443

== ENCOUNTER 2023-04-21 08:57 | Outpatient (REF) | payer MEDICARE, SELFPAY ==
[2023-04-21 11:34] LABS: MANUAL DIFF FLAG NO
[2023-04-21 11:46] LABS: Basophils Absolute Auto 0.1 X10*3/uL (0.0-0.2); Eosinophils Absolute Auto 0.3 X10*3/uL (0.0-0.4); Eosinophils Percent Auto 3.8 % (0-4); Hematocrit 42.8 % (37.0-47.0); Hemoglobin 13.9 g/dl (12.0-16.0); Imm Gran Abs Auto 0.01 X10*3/uL (0.00-0.03); Imm Gran Pct Auto 0.1 % (0.0-0.4); Lymphocytes Absolute Auto 2.9 X10*3/uL (1.2-4.9); Lymphocytes Percent Auto 40.5 % (20-40); Mean Corpuscular HGB Conc 32.5 g/dl (31.0-35.0); Mean Corpuscular Hemoglobin 29.6 pg (27.0-33.0); Mean Corpuscular Volume 91.1 fL (80.0-98.0); Mean Platelet Volume 9.6 fL (9.4-12.3); Monocytes Absolute Auto 0.5 X10*3/uL (0.1-1.2); Monocytes Percent Auto 7.5 % (2-11); Neutrophils Absolute Auto 3.4 x10*3/uL (2.0-8.3); Neutrophils Percent Auto 47.1 % (45-73); Platelet Count 348 X10*3/uL (160-400); Red Cell Distribution Width 13.2 % (11.0-16.0); White Blood Count 7.2 X10*3/uL (4.8-10.8)
[2023-04-21 12:11] LABS: Alanine Aminotransferase 15 U/L (0-31); Anion Gap 13 (12-20); Aspartate Amino Transferase 17 U/L (5-31); Blood Urea Nitrogen 11 mg/dL (9-16); Calcium 9.3 mg/dL (8.4-10.2); Carbon Dioxide 25 mmol/L (22-29); Chloride 98 mmol/L (96-108); Estimated Glomerular Filt Rate > 60; Glucose Fasting 94 mg/dL (60-99); Sodium 132 mmol/L (135-145)
[2023-04-21 12:35] LABS: Free T4 (Free Thyroxine) 0.94 ng/dL (0.71-1.85); Thyroid Stimulating Hormone 1.72 uIU/mL (0.32-4.0); Vitamin D 25-OH Total 59.9 ng/mL (>30)
== END 2023-04-21 08:58 | disposition home or self-care (01) ==
LOC: HO.HMGCLDS 08:57
PROVIDERS: PCP Internal Medicine; Visit Provider Internal Medicine
DX: E03.9 Hypothyroidism, unspecified (principal); M85.89 Other specified disorders of bone density and structure, multiple sites; Z80.6 Family history of leukemia
CPT/HCPCS: 36415; 80048; 82306; 84439; 84443; 84450; 84460; 85025

== ENCOUNTER 2023-04-27 12:44 | Outpatient (AMB) | payer MEDICARE, SELFPAY ==
--- NOTE | 2023-04-27 12:46 | MHC.PC.OV ---
Intake Visit Reasons: SWV [id number] Allergies meperidine [Demerol] Allergy (Unknown, Verified 01/06/23 12:11) Vomiting Sulfa (Sulfonamide Antibiotics) [SULFA (SULFONAMIDE ANTIBIOTICS)] Allergy (Unknown, Verified 01/06/23 12:11) RASH Tobacco use date assessed: 01/06/23 [facility] Medical History (Updated 01/06/23 @ 12:28 by Michelle Peace MD) Family history of leukemia Abdominal bloating Epigastric abdominal pain Osteopenia of multiple sites Rosacea Acquired hypothyroidism Surgical History Hx of colonoscopy No pertinent past surgical history Family History (Updated 01/07/23 @ 02:45 by Michelle Peace MD) Father Prostate cancer Mother Breast cancer Brother Essential thrombocytosis Leukemia Maternal Aunt Lung cancer Social History Housing: House Are you a primary director of managed care to a significant other at home: No Do you presently have visiting nurse or other home services: No Alcohol intake: former Patient Tobacco Use Status: Never used Tobacco e-Cigarette/Vaping Use: Never Used Current occupational status: retired Cognitive needs: No Hearing needs: No Vision needs: Yes Questionnaire Thrive Questionnaire Date Thrive assessed: 12/17/21 GIOVANNA-7 AMB Questionnaire GIOVANNA-7 Date GIOVANNA - 7 assessed: 12/17/21 Source: Developed by Drs. Jason Mohamud, Freda Hager, Craig Bartholomew and colleagues, with an educational naseem from [email or web address]. Physical exam (Primary Care) Tobacco/Smoking Status: Tobacco use Status Tobacco use date assessed 01/06/23 01/06/23 11:50 Patient Tobacco Use Status Never used Tobacco 01/06/23 11:50 e-Cigarette/Vaping Use Never Used 01/06/23 11:50 Thrive Assessment: Date of Thrive Assessment Date Thrive assessed 12/17/21 01/06/23 11:50 Coding
--- NOTE | 2023-04-27 12:48 | A.OFFVIS_ITS ---
Intake Vital Signs 04/27/23 13:01 Height 5 ft 1 in Weight 143 lb BMI 27.0 BP 128/78 Blood Pressure Location Lt brachial Position Sitting Pulse 73 Pulse Source Pulse Oximeter Pulse Oximetry (%) 97 Oxygen Delivery Method Room Air Intake Visit Reasons: JESSE [id number] Intake Note: Pt is here today for her SWV Allergies meperidine [Demerol] Allergy (Unknown, Verified 04/27/23 13:09) Vomiting Sulfa (Sulfonamide Antibiotics) [SULFA (SULFONAMIDE ANTIBIOTICS)] Allergy (Unknown, Verified 04/27/23 13:09) RASH Medication List - Last Reconciled 04/27/23 by Michelle Peace MD calcium citrate-vitamin D3 315 mg-6.25 mcg (250 unit) (Citracal + Vitamin D Maximum) 1 tab PO DAILY cholecalciferol (vitamin D3) 50 mcg PO DAILY metronidazole 0.75% 1 appl topical BEDTIME pantoprazole 40 mg PO DAILY raloxifene 60 mg PO DAILY Synthroid (levothyroxine) Take 1 tab alternating with 1/2 tablet every other day PO daily; 90 days NS Yuvafem (estradiol) 10 mcg vaginal 2XW NS HPI SWV [id number] HPI Details SWV ? 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 She is up-to-date with her lipid and diabetes mellitus screening, which was within normal limits earlier this year, up-to-date with her screening mammogram done 08/30/2022 together bone density scan, the latter showing osteopenia in left femoral neck unchanged from previous scan. She has had a screening colonoscopy in [address] Mcnamara which showed presence of mild sigmoid diverticulosis and a small internal hemorrhoid, no further testing indicated. She does have an appointment to see Dr. Mcnamara over for an upper endoscopy. She is up-to-date with her Shingrix vaccination COVID vaccine, Tdap and pneumococcal vaccination as well as flu shot which she gets yearly. ? Medical / Social History Reviewed? Past Medical History ?Yes . ? Jewell of Care / Care Team list updated ?Yes . ? Surgical/Hospitalization History ?Yes . ? Current Medications (including OTC and supplements) ?Yes . ? Family History ?Yes . ? Tobacco Control form ?Yes . ? AUDIT-C (Alcohol use) form ?Yes . ? Illicit drug use in Social History ?Yes . ? Current diagnosis of depression? ?No ? Appropriate PHQ2/PHQ9 completed ?Yes . ? Data entered by ?Billing Analyst and reviewed by provider ? Fall Risk ? Fall History? Have you had any falls with injury in the past year? ?No . ? Have you had two or more falls in the past year? ?No . ? Fall Risk Assessment: ?No falls in the past year . ? HRA filled out by the patient, reviewed by Provider and scanned. ?SWV ? Balance? Romberg ?Yes . ? Tandem walk ?Yes . ? Walk and Turn ?Yes . ? Rise from sit to stand ?Yes . ?Vision? Corrective lens ?Yes ? Vision screen ? Up-to-date, sees Dr. Acosta yearly ?Hearing? Whisper test ?pass . ?Written Plan?Completed. See Patient Documents.? [facility] Medical History (Updated 04/27/23 @ 13:48 by Michelle Peace MD) Gastroesophageal reflux disease with esophagitis Degenerative disc disease at L5-S1 level History of nephrolithiasis Osteopenia of left femoral neck Family history of leukemia Abdominal bloating Epigastric abdominal pain Rosacea Acquired hypothyroidism Surgical History Hx of colonoscopy No pertinent past surgical history Family History Father Prostate cancer Mother Breast cancer Brother Essential thrombocytosis Leukemia Maternal Aunt Lung cancer Social History Housing: House Are you a primary rn acute care to a significant other at home: No Do you presently have visiting nurse or other home services: No Alcohol intake: former Patient Tobacco Use Status: Never used Tobacco e-Cigarette/Vaping Use: Never Used Current occupational status: retired Cognitive needs: No Hearing needs: No Vision needs: Yes Questionnaire Medicare Wellness Checkup [age] What gender do you identify with?: female During the past 4 weeks, how much have you been bothered by emotional problems such as feeling anxious, depressed, irritable, sad or downhearted, and blue?: not at all During the past 4 weeks, has your physical & emotional health limited your social activities with family, friends, neighbors, or groups?: not at all During the past 4 weeks, how much bodily pain have you generally had?: mild pain During the past 4 weeks, was someone available to help you if you needed & wanted help?: yes, quite a bit During the past 4 weeks, what was the hardest physical activity you could do for at least 2 minutes?: moderate Can you get to places out of walking distance without help? (For eg., can you travel alone on buses, taxis or drive your car?): Yes Can you go shopping for groceries or clothes without someone's help?: Yes Can you prepare your own meals?: Yes Can you do your housework without help?: Yes Because of any health problems, do you need the help of another person with your personal care needs such as eating, bathing, dressing or getting around the house?: No Can you handle your own money without help?: Yes During the past 4 weeks, how would you rate your health in general?: very good During the past 4 weeks how have things been going for you?: pretty well Are you having difficulties driving your car?: no Do you always fasten your seat belt when you are in a car?: yes, usually During past 4 weeks, have you been bothered by the following: never: Falling or dizzy when standing up, Sexual problems?, Trouble eating well?, Teeth or denture problems?, Problems using the telephone? and Tiredness or fatigue? Have you fallen 2 or more times in the past year?: No Are you afraid of falling?: No Are you a smoker?: no During the past 4 weeks, how many drinks of wine, beer, or other alcoholic beverages did you have?: 2-5 drinks per week Do you exercise for about 20 minutes 3 or more times a week?: yes, all the time Have you been given information to help with the following?: yes: Hazards in your house that might hurt you? and yes: Keeping track of your medications? How often do you have trouble taking medicines the way you have been told to take them?: I always take medicine as prescribed How confident are you that you can control & manage most of your health problems?: very confident What is your race?: White Mini Mental State Exam (MMSE) Orientation What is the (year) (season) (date) (day) (month)?: year (2022), season (Summer), date (04/27/2023), day () and month (April) Where are we (state) (county) (town or city) (hospital) (floor)?: state ([place]), [facility] ([place]), town or city ([place]) and hospital/clinic ([facility]) Score Score: 9 Activity of Daily Living Bathing - sponge bath, tub bath or shower: receives no assistance (gets in/out by self, if usual bathing means Dressing - getting clothes from closets & drawers, including inner/outer garments & fasteners.: gets clothes & gets completely dressed without help Toileting - going to the 'toilet room' for urine/bowel elimination & cleaning self/arranging clothes: goes to toilet room, cleans self, arranges clothes without help Transfer: moves in & out of bed and chair without help (may use support object) Continence: controls urination/bowel movements completely by self Feeding: feeds self without help Total Score: 0 Information obtained from: patient Using telephone: independent Traveling: independent Shopping: independent Preparing meals: independent Housework: independent Taking medicine: independent Managing money: independent PHQ-9 Over the last 2 weeks, how often have you been bothered by any of the following problems? 1. Little interest or pleasure in doing things: not at all 2. Feeling down, depressed, or hopeless: not at all 3. Trouble falling or staying asleep, or sleeping too much: not at all 4. Feeling tired or having little energy: not at all 5. Poor appetite or overeating: not at all 6. Feeling bad about yourself - or that you are a failure or have let yourself or your family down: not at all 7. Trouble concentrating on things, such as reading the newspaper or watching television: not at all 8. Moving or speaking so slowly that other people could have noticed. Or the o pposite - being so fidgety or restless that you have been moving around a lot more than usual: not at all 9. Thoughts that you would be better off or of hurting yourself in some way: not at all Total score: 0 Depression Screening Interpretation: Negative [id number] - PHQ-9 Billing: Yes Source: Developed by Drs. Jason Mohamud, Freda Hager, Craig Bartholomew and colleagues, with an educational naseem from [employer]. Physical Exam Vital Signs: Last Vital Signs Pulse 73 04/27/23 13:01 BP 128/78 04/27/23 13:01 Pulse Ox 97 04/27/23 13:01 Oxygen Delivery Method Room Air 04/27/23 13:01 BMI result Body Mass Index 27.0 Results Reviewed Results Reviewed: ENTERED: 04/21/23-[address]: ORDERED: CBC Auto Diff Test Result Flag Reference Site WBC 7.2 4.8-10.8 X10*3/uL RBC 4.70 4.20-5.50 X10*6/uL HGB 13.9 12.0-16.0 g/dl HCT 42.8 37.0-47.0 % MCV 91.1 80.0-98.0 fL MCH 29.6 27.0-33.0 pg MCHC 32.5 31.0-35.0 g/dl RDW 13.2 11.0-16.0 % PLT 348 160-400 X10*3/uL MPV 9.6 9.4-12.3 fL Neut Pct Auto 47.1 45-73 % ImGran Pct Auto 0.1 0.0-0.4 % Lymp Pct Auto 40.5 H 20-40 % Starke Pct Auto 7.5 2-11 % Eos Pct Auto 3.8 0-4 % Baso Pct Auto 1.0 0-2 % NRBC Pct Auto 0.0 0.0-0.2 /100WBC ANC Neut Abs # 3.4 2.0-8.3 x10*3/uL ImGran Abs Auto 0.01 0.00-0.03 X10*3/uL Lymph Abs Auto 2.9 1.2-4.9 X10*3/uL Starke Abs Auto 0.5 0.1-1.2 X10*3/uL Eos Abs Auto 0.3 0.0-0.4 X10*3/uL Baso Abs Auto 0.1 0.0-0.2 X10*3/uL NRBC Abs Auto 0.000 0.0-0.012 X10*3/ uL ENTERED: 04/21/23 MIAH TAFOYA: ORDERED: Met Prof Fast, AST, ALT, Vitamin D 25-OH, Free T4, TSH Test Result Flag Reference Site Sodium 132 L 135-145 mmol/L Potassium 4.0 3.3-5.1 mmol/L CL 98 96-108 mmol/L CO2 25 22-29 mmol/L Gap 13 12-20 BUN 11 9-16 mg/dL Creat 0.77 0.5-1.4 mg/dL EGFR > 60 NOTE: For -Aust[place] individuals, multiply the result by 1.210. Chronic Kidney Disease: Estimated GFR < 60 mL/min/1.73m2 Severe Kidney Disease: Estimated GFR < 15 mL/min/1.73m2 FBS 94 60-99 mg/dL CA 9.3 8.4-10.2 mg/dL AST (GOT) 17 5-31 U/L ALT (GPT) 15 0-31 U/L Vit D 25-OH Tot 59.9 >30 ng/mL Health Based Reference Values* < 20 ng/mL Deficient 20-30 ng/mL Insufficient > 30 ng/mL Sufficient *Jaylen OSORIO. N Engl J Med. 2007;357:266-280 Care must be taken in interpreting Vitamin D results from different laboratories and methodologies. Published data demonstrated that results from patients undergoing hemodialysis may show a negative bias when tested with various automated 25-OH vitamin D assays when compared to LC-MS/MS. When testing samples from patients whose predominant form of Vitamin D is Vitamin D2, such as patients receiving Vitamin D2 supplementation, results that are subtherapeutic should be confirmed with another method such as LC-MS/MS. Free T4 0.94 0.71-1.85 ng/dL TSH 3rd Gen. 1.72 0.32-4.0 uIU/mL TSH 3rd Generation ([facility]) ENTERED: 01/05/23-[address] [facility] [address]: ORDERED: Glu Fasting, Lipid Panel, Vitamin D 25-OH, Free T4, TSH Test Result Flag Reference Site FBS 93 60-99 mg/dL Triglyceride 46 mg/dL Desirable Triglyceride: less than 150 mg/dL Borderline High Triglyceride 150-199 mg/dL High Triglyceride: 200-499 mg/dL Very High Triglyceride: greater than or equal to 5OO mg/dL Chol 173 mg/dL Desirable Cholesterol: less than 200 mg/dL Borderline High Cholesterol: 200-239 mg/dL High Cholesterol: greater than 239 mg/dL LDL Calculated 83 mg/dl Desirable LDL: less than 100 mg/dL Near Optimal/Above Optimal LDL: 110-129 mg/dL Borderline High LDL: 130-159 mg/dL High LDL: 160-189 mg/dL Very High LDL: greater than or equal to 190 mg/dL HDL 81 mg/dL Desirable HDL: greater than 40 mg/dL Note: This HDL assay may give artificially low results in patients with liver disease. Vit D 25-OH Tot 45.9 >30 ng/mL Health Based Reference Values* < 20 ng/mL Deficient 20-30 ng/mL Insufficient > 30 ng/mL Sufficient *Jaylen OSORIO. N Engl J Med. 2007;357:266-280 Care must be taken in interpreting Vitamin D results from different laboratories and methodologies. Published data demonstrated that results from patients undergoing hemodialysis may show a negative bias when tested with various automated 25-OH vitamin D assays when compared to LC-MS/MS. When testing samples from patients whose predominant form of Vitamin D is Vitamin D2, such as patients receiving Vitamin D2 supplementation, results that are subtherapeutic should be confirmed with another method such as LC-MS/MS. Free T4 1.04 0.71-1.85 ng/dL TSH 3rd Gen. 1.43 0.32-4.0 uIU/mL Assessment & Plan Assessment & Plan (1) Encounter for subsequent annual wellness visit (AWV) in Medicare patient: Code(s): Z00.00 - Encounter for general adult medical examination without abnormal findings Plan: Medical wellness checklist reviewed, discussed with patient and updated. Reminded to get her new COVID booster vaccine and yearly flu shot. (2) Osteopenia of left femoral neck: Code(s): M85.852 - Other specified disorders of bone density and structure, left thigh Plan: Up-to-date with her bone density scan, continue with doing regular weight- bearing exercise, take adequate calcium from dietary sources and take been D3 supplements at least 2000 units daily. (3) Acquired hypothyroidism: Code(s): E03.9 - Hypothyroidism, unspecified Plan: Thyroid levels are within normal limits continue with current dose of Synthroid (4) Degenerative disc disease at L5-S1 level: Code(s): M51.37 - Other intervertebral disc degeneration, lumbosacral region Plan: Continue doing regular stretches and exercise. (5) Gastroesophageal reflux disease with esophagitis: Code(s): K21.00 - Gastro-esophageal reflux disease with esophagitis, without bleeding Plan: Currently sees Dr. Mcnamara, has an appointment for an upper endoscopy in May 2023 Quality Reporting (2019) Depression/Bipolar (159/160/161/177) PHQ-9: Total score: 0 Coding Level of Care Code Medicare Subsequent (G0439) Diagnoses Encounter for subsequent annual wellness visit (AWV) in Medicare patient Z00.00 Osteopenia of left femoral neck M85.852 Acquired hypothyroidism E03.9 Degenerative disc disease at L5-S1 level M51.37 Gastroesophageal reflux disease with esophagitis K21.00 CPT Codes Advance Care Planning - Advance Care Planning discussion: On file, no changes ([id number]) Advance Care Planning - Time spent: 1-15 minutes, on File ([id number]) Advance Care Planning Advance Care Planning discussion: On file, no changes Date of discussion: 04/27/23 Who was present: Patient Forms completed: Health Care Proxy (On file) and MOLST (Declines) Time spent: 1-15 minutes, on File Actual minutes spent: 15
[2023-04-27 13:01] VITALS: BP 128/78; PULSE 73; O2SAT 97; BMI 27.0
== END 2023-04-27 13:45 | disposition home or self-care (01) ==
PROVIDERS: Visit Provider Internal Medicine
DX: Z00.00 Encounter for general adult medical examination without abnormal findings (principal); M85.852 Other specified disorders of bone density and structure, left thigh; E03.9 Hypothyroidism, unspecified; M51.37 Other intervertebral disc degeneration, lumbosacral region; K21.00 Gastro-esophageal reflux disease with esophagitis, without bleeding
CPT/HCPCS: 1123F; G0439

== ENCOUNTER 2023-06-14 06:32 | Day surgery (SDC) | payer MEDICARE, SELFPAY ==
--- NOTE | 2023-06-13 09:05 | P.CONAN_ITS ---
Documented by User: Bella Woodard NP 06/13/23 09:07 HPI - Anesthesia Eval Consult details Narrative: 73yo F for Upper Endoscopy PMFSH Active Problems Active Problems: All Active Problems (Updated 06/12/23 @ 06:56 by Yamila Jiménez RN) Gastroesophageal reflux disease with esophagitis (Acute) Degenerative disc disease at L5-S1 level (Acute) Osteopenia of left femoral neck (Acute) Family history of leukemia (Acute) Acquired hypothyroidism (Acute) Past Medical History Medical History Cervical cancer Gastroesophageal reflux disease with esophagitis Degenerative disc disease at L5-S1 level History of nephrolithiasis Osteopenia of left femoral neck Family history of leukemia Abdominal bloating Epigastric abdominal pain Rosacea Acquired hypothyroidism Family History Family History Father Prostate cancer Mother Breast cancer Brother Essential thrombocytosis Leukemia Maternal Aunt Lung cancer Family history of problems with anesthesia: No Surgical History Surgical History History of conization of cervix Hx of colonoscopy History of Problems with Anesthesia: No Social History Social History Housing: House Are you a primary healthcare corporate account director to a significant other at home: No Do you presently have visiting nurse or other home services: No Alcohol intake: former Patient Tobacco Use Status: Never used Tobacco e-Cigarette/Vaping Use: Never Used Are you DNR?: No Advance Directives: No Advance Directives Information Provided: Yes Nutrition Risks: No Nutritional Risk Current occupational status: retired Cognitive needs: No Hearing needs: No Vision needs: Yes Meds Allergies Allergy/AdvReac Type Severity Reaction Status Date / Time meperidine [Demerol] Allergy Unknown Vomiting Verified 06/14/23 06:43 Sulfa (Sulfonamide Allergy Unknown RASH Verified 06/14/23 06:43 Antibiotics) [SULFA (SULFONAMIDE ANTIBIOTICS)] fentanyl AdvReac Vomiting Verified 06/14/23 06:43 Home Medications Medication Instructions Recorded Confirmed Last Taken Type calcium citrate 315 mg 1 tab PO DAILY 11/18/20 06/14/23 Unknown History calcium-vitamin D3 6.25 mcg (250 unit) tablet (Citracal + Vitamin D Maximum) cholecalciferol (vitamin D3) 50 50 mcg PO DAILY 11/18/20 06/14/23 Unknown History mcg (2,000 unit) capsule Exam Exam Date and Time: June 13, [id number] Pertinent Lab Results Pertinent Lab Results: Laboratory Tests 04/21/23 09:01 WBC 7.2 Hgb 13.9 Hct 42.8 Plt Count 348 Sodium 132 L Potassium 4.0 Chloride 98 Carbon Dioxide 25 BUN 11 Creatinine 0.77 Assessment and Plan Assessment Anesthesia Assessment: Chart Reviewed Final Anesthetic Review Family History of Problems with Anesthesia: No History of Problems with Anesthesia: No Documented by User: Aleks Jin MD 06/14/23 07:27 [facility] Past Medical History Medical History Cervical cancer Gastroesophageal reflux disease with esophagitis Degenerative disc disease at L5-S1 level History of nephrolithiasis Osteopenia of left femoral neck Family history of leukemia Abdominal bloating Epigastric abdominal pain Rosacea Acquired hypothyroidism Family History Family History Father Prostate cancer Mother Breast cancer Brother Essential thrombocytosis Leukemia Maternal Aunt Lung cancer Surgical History Surgical History History of conization of cervix Hx of colonoscopy Social History Social History Housing: House Are you a primary healthcare corporate account director to a significant other at home: No Do you presently have visiting nurse or other home services: No Alcohol intake: former Patient Tobacco Use Status: Never used Tobacco e-Cigarette/Vaping Use: Never Used Are you DNR?: No Advance Directives: No Advance Directives Information Provided: Yes Nutrition Risks: No Nutritional Risk Current occupational status: retired Cognitive needs: No Hearing needs: No Vision needs: Yes Meds Allergies Allergy/AdvReac Type Severity Reaction Status Date / Time meperidine [Demerol] Allergy Unknown Vomiting Verified 06/14/23 06:43 Sulfa (Sulfonamide Allergy Unknown RASH Verified 06/14/23 06:43 Antibiotics) [SULFA (SULFONAMIDE ANTIBIOTICS)] fentanyl AdvReac Vomiting Verified 06/14/23 06:43 Home Medications Medication Instructions Recorded Confirmed Last Taken Type calcium citrate 315 mg 1 tab PO DAILY 11/18/20 06/14/23 Unknown History calcium-vitamin D3 6.25 mcg (250 unit) tablet (Citracal + Vitamin D Maximum) cholecalciferol (vitamin D3) 50 50 mcg PO DAILY 11/18/20 06/14/23 Unknown History mcg (2,000 unit) capsule Exam Airway Mallampati Class: III TM Dist: >3cm Neck ROM: Full Loose/Missing/Broken Teeth: No Heart: rrr Lungs: clear Assessment and Plan Final Anesthetic Review NPO: Yes ASA Class: II Final Preanesthetic Review: No Changes in Pt Med Stat, Meds/Allgs Chart Reviewed, Consent Obtained/Reviewed and Anes Risks/Benef Reviewed Patient Risk: Intermediate Procedure Risk: Low Anesthetic Plan Anesthetic Plan: MAC: Disposition: Standard PACU
[2023-06-14 05:53] VITALS: BMI 26.2
[2023-06-14 06:45] VITALS: BP 158/81; PULSE 76; RESP 18; TEMP 36.6; O2SAT 97
[2023-06-14] MEDS: Lactated Ringers 1,000 ML 100 ML IVCONT (06:50)
[2023-06-14 07:00] VITALS: BP 142/72
[2023-06-14 08:00] VITALS: BP 124/66; PULSE 66; RESP 16; TEMP 36.6; O2SAT 98
--- NOTE | 2023-06-14 08:03 | P.BOP_ITS ---
Brief Operative Note Date of Service: 06/14/23 Pre-op diagnosis: GERD Post-op diagnosis: other (Minimal hiatal hernia, Gastric polyps) Procedure: EGD with biopsies Surgeon: Jason Mcnamara MD Anesthesia: MAC Was an Transport Engineer used for this Procedure?: No Estimated blood loss (mL): 2.0 Pathology: other (A. Gastric polyps) Condition: stable Disposition: PACU
[2023-06-14 08:15] VITALS: BP 120/75; PULSE 62; RESP 18; TEMP 36.1; O2SAT 98
--- NOTE | 2023-06-14 08:38 | OP_ITS ---
DATE OF SERVICE: 06/14/2023 SURGEON: Jason Mcnamara MD INDICATIONS: The patient presents for evaluation of gastroesophageal reflux. Full consent obtained from her for this, including risks of bleeding and perforation. PREOPERATIVE DIAGNOSIS: Gastroesophageal reflux. POSTOPERATIVE DIAGNOSIS: PROCEDURE PERFORMED: Esophagogastroduodenoscopy with biopsies. ESTIMATED BLOOD LOSS: COMPLICATIONS: ANESTHESIA: Monitored anesthesia care. ASSISTANTS: SPECIMENS: POSTOPERATIVE DIAGNOSES: Gastroesophageal reflux, gastric polyps, minimal hiatal hernia. DESCRIPTION OF PROCEDURE: The patient was placed in the left lateral decubitus position. The Olympus video gastroscope was passed in the posterior oropharynx and upper esophagus under direct vision. The scope was passed slowly to the distal esophagus. The gastroesophageal junction appeared normal at 36 cm. There was no sign of any esophagitis nor Rodriguze's esophagus. There was a minimal hiatal hernia. The scope entered the stomach and was advanced to the pylorus. The duodenum was cannulated to the descending portion. The duodenum including the bulb appeared normal without mass or ulceration. The scope was withdrawn back to the stomach. The gastric antrum and body appeared normal with good peristalsis. The scope was retroflexed visualizing the proximal stomach carefully, which appeared normal, without mass or ulceration, other than several hyperplastic appearing gastric polyps. Two of these were biopsied. The scope was straightened and withdrawn back to the esophagus. The esophageal mucosa appeared normal. The scope was withdrawn from the patient. She tolerated the procedure well and was returned to recovery area in stable condition. IMPRESSION: 1. Minimal hiatal hernia. 2. Gastric polyps. PLAN: The results of the biopsies will be checked. Given these findings and her clinical history, I do not think she needs to be on any chronic acid suppression. She has not been on any medication for over a month and has been doing well without that. I advised her to use p.r.n. antacids or other [id number] acid suppression as needed. She will see me on a p.r.n. basis. MD LB Cobian/RILEY / [id number] MTDD
== END 2023-06-14 09:01 | disposition home or self-care (01) ==
PROVIDERS: PCP Internal Medicine; Visit Provider Internal Medicine
PROC: 0DJ08ZZ Inspection of Upper Intestinal Tract, Via Natural or Artificial Opening Endoscopic (ICD-10-PCS; CPT 43235; principal; 2023-06-14 07:30)
DX: K21.9 Gastro-esophageal reflux disease without esophagitis (principal); K31.7 Polyp of stomach and duodenum; K44.9 Diaphragmatic hernia without obstruction or gangrene; R93.3 Abnormal findings on diagnostic imaging of other parts of digestive tract; E03.9 Hypothyroidism, unspecified; Z85.41 Personal history of malignant neoplasm of cervix uteri; Z79.899 Other long term (current) drug therapy
CPT/HCPCS: 43239; 88305; 88342

== ENCOUNTER 2023-10-04 11:44 | Outpatient (REF) | payer MEDICARE, SELFPAY | END 2023-10-04 11:45 | disposition home or self-care (01) | LOC: HO.MAMMO 11:44 | PROVIDERS: PCP Internal Medicine; Visit Provider Internal Medicine | DX: Z12.31 Encounter for screening mammogram for malignant neoplasm of breast (principal) | CPT/HCPCS: 77063; 77067 ==

== ENCOUNTER → 2023-10-04 11:45 | Outpatient (BNV) | payer MEDICARE, SELFPAY | PROVIDERS: PCP Internal Medicine; Visit Provider Radiology Diagnostic Radiology | DX: Z12.31 Encounter for screening mammogram for malignant neoplasm of breast (principal) | CPT/HCPCS: 77063; 77067 ==

== ENCOUNTER 2023-10-30 09:37 | Outpatient (AMB) | payer MEDICARE, SELFPAY ==
--- NOTE | 2023-10-30 09:53 | A.OFFPC_ITS ---
Vital Signs 10/30/23 09:55 Height 5 ft 1.5 in Weight 138 lb BMI 25.6 BP 138/64 Blood Pressure Location Lt brachial Position Sitting Pulse 71 Pulse Source Pulse Oximeter Pulse Oximetry (%) 96 Oxygen Delivery Method Room Air Intake Visit Reasons: 6 months f/u Intake Note: Pt is here today for her 6 months f/u Allergies meperidine [Demerol] Allergy (Unknown, Verified 10/30/23 10:09) Vomiting Sulfa (Sulfonamide Antibiotics) [SULFA (SULFONAMIDE ANTIBIOTICS)] Allergy (Unknown, Verified 10/30/23 10:09) RASH fentanyl Adverse Reaction (Verified 10/30/23 10:09) Vomiting Medication List - Last Reconciled 10/30/23 by Michelle Peace MD calcium citrate-vitamin D3 315 mg-6.25 mcg (250 unit) (Citracal + Vitamin D Maximum) 1 tab PO DAILY cholecalciferol (vitamin D3) 50 mcg PO DAILY metronidazole 0.75% 1 appl topical BEDTIME raloxifene 60 mg PO DAILY Synthroid (levothyroxine) Take 1 tab alternating with 1/2 tablet every other day PO daily; 90 days NS Yuvafem (estradiol) 10 mcg vaginal 2XW NS Tobacco use date assessed: 10/30/23 Fall risk assessment: No Falls in past year Last assessed Fall Risk: 10/30/23 Dental Screening Dental Screen Date: 10/30/23 Did you have a dental visit in the last 12 months?: Yes Did you have a dental problem in the last 6 months where you did not have access to dental care?: No Was dental information given to patient?: Patient has dentist HPI 6 months f/u HPI Details 73-year-old lady with hypothyroidism cur rently on Synthroid 50 mcg taken 1 tablet alternating with half a tablet every other day. Patient states that she is feeling well on current dose. She had a bone density scan done August 2022 which showed improvement in bone density in her lumbar spine, mild osteopenia in left femoral neck and normal in her left femur. Currently taking raloxifene, vitamin-D 3 supplements and calcium supplements. No history of fractures. She had an upper endoscopy done by Dr. Mcnamara which showed per minimal reflux, advised to just take [id number] Pepcid AC as needed. Patient states she is currently asymptomatic. Has been seen by Dr. Baker for history of nephrolithiasis has not had any stone seen last 5 years Sees [facility] in [place], for hyperpigmentation on lower lip which is benign. Has history of right ovarian cyst seen on ultrasound in 2010, would like to get it rechecked. Patient without any symptoms FOR[facility]LY [facility], [facility] Medical History Cervical cancer Gastroesophageal reflux disease with esophagitis Degenerative disc disease at L5-S1 level History of nephrolithiasis Osteopenia of left femoral neck Family history of leukemia Rosacea Acquired hypothyroidism Surgical History History of conization of cervix Hx of colonoscopy Family History Father Prostate cancer Mother Breast cancer Brother Essential thrombocytosis Leukemia Maternal Aunt Lung cancer Social History Housing: House Are you a primary medicare coordinator to a significant other at home: No Do you presently have visiting nurse or other home services: No Alcohol intake: former Patient Tobacco Use Status: Never used Tobacco e-Cigarette/Vaping Use: Never Used Current occupational status: retired Cognitive needs: No Hearing needs: No Vision needs: Yes Questionnaire PHQ-9 Over the last 2 weeks, how often have you been bothered by any of the following problems? 1. Little interest or pleasure in doing things: not at all 2. Feeling down, depressed, or hopeless: not at all 3. Trouble falling or staying asleep, or sleeping too much: not at all 4. Feeling tired or having little energy: not at all 5. Poor appetite or overeating: not at all 6. Feeling bad about yourself - or that you are a failure or have let yourself or your family down: not at all 7. Trouble concentrating on things, such as reading the newspaper or watching television: not at all 8. Moving or speaking so slowly that other people could have noticed. Or the opposite - being so fidgety or restless that you have been moving around a lot more than usual: not at all 9. Thoughts that you would be better off or of hurting yourself in some way: not at all Total score: 0 Depression Screening Interpretation: Negative Depression Screening Done: Yes 76439 - PHQ-9 Billing: Yes Source: Developed by Drs. Jason Mohamud, Freda Hager, Craig Bartholomew and colleagues, with an educational naseem from [employer]. Thrive Questionnaire Date Thrive assessed: 10/30/23 I am a: Patient What is your living situation today?: I have a steady place to live Within the past 12 months, did the food you bought not last and you didn't have the money to get more?: Never true Within the past 12 months, did you worry whether your food would run out before you got money to buy more?: Never true Do you have trouble paying for medicines?: No Do you have trouble getting transportation to medical appointments?: No Do you have trouble paying your heating and electricity bill?: No Do you have trouble taking care of your child, family member or friend?: No Do you have trouble with day-to-day activities such as bathing, preparing meals, shopping, managing finances, etc.?: No Are you currently unemployed and looking for a job?: No Are you interested in more education?: No THRIVE Score: 0 AUDIT C Alcohol Use Questionnaire (AUDIT-C) 1. How often do you have a drink containing alcohol?: 2-4 times a month 2. How many drinks containing alcohol do you have on a typical day when you are drinking?: 1 or 2 3. How often do you have six or more drinks on one occasion?: Never Total Score: 2 GIOVANNA-7 AMB Questionnaire GIOVANNA-7 Date GIOVANNA - 7 assessed: 10/30/23 Feeling nervous, anxious, or on edge: 0 = Not at all Not being able to stop or control worryin = Not at all Worrying too much about different things: 0 = Not at all Trouble relaxin = Not at all Being so restless that it is hard to sit still: 0 = Not at all Becoming easily annoyed or irritable: 0 = Not at all Feeling afraid as if something awful might happen: 0 = Not at all Total GIOVANNA-7 score (0-4 normal; 5-9 mild; 10-14 moderate; 15-21 severe): 0 Source: Developed by Freda CardonaW. Madan, Craig Bartholomew and colleagues, with an educational naseem from [employer]. GIOVANNA-7 Assessment Billing GIOVANNA-7 Assessment Tool: GIOVANNA-7 Assessment 27123 Review of Systems Const Denies chills, Denies fever(s), Denies frequent falls and Denies headache(s) Eyes Denies change in vision and Reports requires corrective lenses ENT Denies dizziness and Denies headache(s) Card Reports no additional complaints, Denies syncope and Denies dyspnea Resp Denies cough and Denies dyspnea GI Denies abdominal pain and Denies heartburn Reports no additional complaints Musc Reports no additional complaints Skin/Breast Details: Goes to [facility] [place], follow-up on a freckle on lower lip Denies breast swelling, Denies breast pain, Denies breast mass and Denies rash Neuro Denies dizziness, Denies syncope, Denies frequent falls and Denies headache(s) Psych Reports no additional complaints Endo Reports no additional complaints Delfin/Lymph Denies easy bleeding and Denies easy bruising Aller/Immun Reports no additional complaints Physical exam (Primary Care) Vital Signs: Last Vital Signs Pulse 71 10/30/23 09:55 BP 138/64 10/30/23 09:55 Pulse Ox 96 10/30/23 09:55 Oxygen Delivery Method Room Air 10/30/23 09:55 BMI result Body Mass Index 25.6 Tobacco/Smoking Status: Tobacco use Status Tobacco use date assessed 10/30/23 10/30/23 10:00 Patient Tobacco Use Status Never used Tobacco 10/30/23 09:55 e-Cigarette/Vaping Use Never Used 10/30/23 09:55 PHQ-9: PHQ-9 Score PHQ-9: Total score 0 10/30/23 10:00 Depression Screening Interpretation: Negative Thrive Assessment: Date of Thrive Assessment Date Thrive assessed 10/30/23 10/30/23 10:00 Const Other: oriented x3, no acute distress ambulatory with normal gait Orientation/consciousness: patient oriented x3 HENMT Head: Yes normocephalic Face and sinus: Yes face symmetric Mouth: Normal oral and palatal mucosa present, oropharynx normal, moist mucous membranes and other (2 shaw colored macule on lower lip) Neck Other: Thyroid gland nonpalpable and nontender to palpation Neck: Yes full ROM, Yes no lymphadenopathy and Yes supple Resp Auscultation: clear to auscultation bilaterally Cardio Other: S1-S2 present regular rate and rhythm GI Palpation (GI): Soft to palpation, nontender, no guarding and no masses Auscultation: normal bowel sounds General: Yes no CVA tenderness Back/Spine/Pelvis Back: no CVA tenderness and No back tenderness Neuro General: patient oriented x3, gait normal, Normal light touch and pain sensation, no focal motor deficits and CN's II-XI intact bilaterally Extrem General: Yes full ROM, Yes no clubbing, cyanosis or edema, Yes no calf tenderness and Yes normal gait Psych Appearance: grossly normal and well kempt Mental Status: mental status grossly normal Speech and movement: Normal speech and movement present Affect: normal affect Attitude: cooperative Assessment and Plan Assessment & Plan (1) Osteopenia of left femoral neck: Code(s): M85.852 - Other specified disorders of bone density and structure, left thigh Plan: Repeat another bone density scan August 2024. Continue with raloxifene, calcium and vitamin-D 3 supplements including regular weight-bearing exercise. Ordered vitamin-D level and calcium level (2) Acquired hypothyroidism: Code(s): E03.9 - Hypothyroidism, unspecified Plan: Ordered TSH with free T4 continue with Synthroid 50 mcg alternating dose of 50 and 25 every other day (3) History of ovarian cyst: Code(s): Z87.42 - Personal history of other diseases of the female genital tract Plan: Ordered pelvic /overian ultrasound Orders: Orders Thyroid Stimulating Hormone Today E03.9 - Hypothyroidism, unspecified, M85.852 - Other specified disorders of bone density and structure, left thigh, Z13.1 - Encounter for screening for diabetes mellitus, Z13.220 - Encounter for screening for lipoid disorders Free T4 (Free Thyroxine) Today E03.9 - Hypothyroidism, unspecified, M85.852 - Other specified disorders of bone density and structure, left thigh, Z13.1 - Encounter for screening for diabetes mellitus, Z13.220 - Encounter for screening for lipoid disorders Vitamin D 25-OH Total Today E03.9 - Hypothyroidism, unspecified, M85.852 - Other specified disorders of bone density and structure, left thigh, Z13.1 - Encounter for screening for diabetes mellitus, Z13.220 - Encounter for screening for lipoid disorders Lipid Panel Today E03.9 - Hypothyroidism, unspecified, M85.852 - Other specified disorders of bone density and structure, left thigh, Z13.1 - Encounter for screening for diabetes mellitus, Z13.220 - Encounter for screening for lipoid disorders Basic Metabolic Panel Fasting Today E03.9 - Hypothyroidism, unspecified, M85.852 - Other specified disorders of bone density and structure, left thigh, Z13.1 - Encounter for screening for diabetes mellitus, Z13.220 - Encounter for screening for lipoid disorders US pelvic ovarian doppler Today Z87.42 - Personal history of other diseases of the female genital tract Coding Level of Care Code Est Pt Level 4 (67841) Diagnoses Osteopenia of left femoral neck M85.852 Acquired hypothyroidism E03.9 History of ovarian cyst Z87.42 Additional Codes GIOVANNA-7 Assessment Billing - GIOVANNA-7 Assessment Tool: GIOVANNA-7 Assessment [id number] ([id number])
[2023-10-30 09:55] VITALS: BP 138/64; PULSE 71; O2SAT 96; BMI 25.6
== END 2023-10-30 10:38 | disposition home or self-care (01) ==
PROVIDERS: PCP Internal Medicine; Visit Provider Internal Medicine
DX: M85.852 Other specified disorders of bone density and structure, left thigh (principal); E03.9 Hypothyroidism, unspecified; Z87.42 Personal history of other diseases of the female genital tract
CPT/HCPCS: 99214

== ENCOUNTER 2023-10-31 09:00 | Outpatient (REF) | payer MEDICARE, SELFPAY ==
[2023-10-31 12:04] LABS: Anion Gap 8 (12-20); Blood Urea Nitrogen 12 mg/dL (9-16); Carbon Dioxide 28 mmol/L (22-29); Chloride 103 mmol/L (96-108); Cholesterol 174 mg/dL (<200); Estimated Glomerular Filt Rate > 60; Free T4 (Free Thyroxine) 0.91 ng/dL (0.71-1.85); Glucose Fasting 93 mg/dL (60-99); HDL Cholesterol 78 mg/dL (>40); LDL Cholesterol Calculated 83 mg/dL (<100); Sodium 135 mmol/L (135-145); Thyroid Stimulating Hormone 1.78 uIU/mL (0.32-4.0); Triglycerides 69 mg/dL (<150)
== END 2023-10-31 09:01 | disposition home or self-care (01) ==
LOC: HO.HMGCLDS 09:00
PROVIDERS: PCP Internal Medicine; Visit Provider Internal Medicine
DX: M85.852 Other specified disorders of bone density and structure, left thigh (principal); E03.9 Hypothyroidism, unspecified; Z13.220 Encounter for screening for lipoid disorders; Z13.1 Encounter for screening for diabetes mellitus
CPT/HCPCS: 36415; 80048; 80061; 82306; 84439; 84443

== ENCOUNTER 2024-01-08 14:15 | Outpatient (REF) | payer MEDICARE, SELFPAY ==
--- NOTE | ~2024-01-08 | US_ITS ---
EXAMINATION: US PELVIS CLINICAL INFORMATION: History of ovarian cysts, postmenopausal, conization of cervix in 1982. COMPARISON: CT abdomen and pelvis 09/28/2018. TECHNIQUE: Ultrasound of the pelvis is performed using both transabdominal and transvaginal transducers along with Doppler. Transvaginal imaging is performed due to inadequate visualization transabdominally. Limited visualization due to bowel gas. FINDINGS: The uterus is anteverted and measures 5.8 x 2.6 cm. Large amount of fluid within the endometrial cavity with narrow fluid extending into the cervix where there is again an additional large collection of fluid. Double wall endometrial thickness totals 4 mm. Appearance is concerning for possible mass/obstruction at this junction between the endometrial cavity and cervix. No significant free fluid. Left ovary is unremarkable and measures 1.8 x 1.2 x 1.7 cm, volume 2.0 mL. Right ovary measures 1.6 x 2.2 x 1.7 cm, volume of 3.2 mL. A 0.9 x 1.7 x 1.4 cm right ovarian cyst. US/US pelvic and transvaginal IMPRESSION: Large fluid collections within the endometrium and also within the cervix with possible obstructive lesion/lesions. Gynecologic consultation and possible additional imaging with contrast-enhanced MRI recommended to determine further management. This study was presented Tuesday, January 23, 2024 for interpretation. PSA staff will provide results to referring provider at this time.
== END 2024-01-08 14:16 | disposition home or self-care (01) ==
LOC: HO.HMGCX 14:15
PROVIDERS: PCP Internal Medicine; Visit Provider Internal Medicine
DX: Z87.42 Personal history of other diseases of the female genital tract (principal)
CPT/HCPCS: 76830; 76856

== ENCOUNTER 2024-01-31 12:48 | Outpatient (AMB) | payer MEDICARE, SELFPAY ==
[2024-01-31 12:58] VITALS: BP 126/70; BMI 24.9
--- NOTE | 2024-01-31 12:58 | A.OFFVIS_ITS ---
Vital Signs 01/31/24 12:58 Height 5 ft 1.5 in Weight 134 lb BMI 24.9 BP 126/70 Intake Visit Reasons: New patient disorder of Uterus Hearing Healthcare Practitioner Required: No Information Interpreted: non-clinical & clinical Accompanied by: Self / Same As Patient Allergies meperidine [Demerol] Allergy (Unknown, Verified 01/31/24 13:03) Vomiting Sulfa (Sulfonamide Antibiotics) [SULFA (SULFONAMIDE ANTIBIOTICS)] Allergy (Unknown, Verified 01/31/24 13:03) RASH fentanyl Adverse Reaction (Verified 01/31/24 13:03) Vomiting Post menopausal: Yes HPI Comments Details: The patient is referred from PCP regarding abnormal ultrasound, large amount of endometrial fluid. No history of vaginal bleeding. No recent Pap smear last Pap smear was in On 01/08/2024 pelvic ultrasound showed the following: The uterus is anteverted and measures 5.8 x 2.6 cm. Large amount of fluid within the endometrial cavity with narrow fluid extending into the cervix where there is again an additional large collection of fluid. Double wall endometrial thickness totals 4 mm. Appearance is concerning for possible mass/obstruction at this junction between the endometrial cavity and cervix. No significant free fluid. Left ovary is unremarkable and measures 1.8 x 1.2 x 1.7 cm, volume 2.0 mL. Right ovary measures 1.6 x 2.2 x 1.7 cm, volume of 3.2 mL. A 0.9 x 1.7 x 1.4 cm right ovarian cyst. Pelvic ultrasound done in 07/31 showed small amount of fluid in the endometrium with endometrial thickness of 3.5 mm and a right simple ovarian cyst measuring 3.7 cm [facility] Medical History Fluid in endometrial cavity Cervical cancer Gastroesophageal reflux disease with esophagitis Degenerative disc disease at L5-S1 level History of nephrolithiasis Osteopenia of left femoral neck Family history of leukemia Rosacea Acquired hypothyroidism Surgical History History of conization of cervix Hx of colonoscopy Family History Father Prostate cancer Mother Breast cancer Brother Essential thrombocytosis Leukemia Maternal Aunt Lung cancer Social History Household Members: None Housing: House Are you a primary child care team lead to a significant other at home: No Do you presently have visiting nurse or other home services: No Alcohol intake: current Alcohol intake frequency: holidays/special occasions only Patient Tobacco Use Status: Never used Tobacco e-Cigarette/Vaping Use: Never Used Current occupational status: retired Cognitive needs: No Hearing needs: No Vision needs: Yes Review of Systems Const All systems reviewed & are unremarkable except as noted in HPI and below Physical Exam Vital Signs: Last Vital Signs BP 126/70 01/31/24 12:58 BMI result Body Mass Index 24.9 General: Yes no CVA tenderness External Female Exam: normal external appearance and normal appearance of the urethra Speculum Exam - Vagina: normal appearance of the vagina, normal palpation, no lesions and no masses Speculum Exam - Cervix: Other cervical findings present (The cx is flushed with the vaginal wall with endocervical os not visible) Bimanual exam- vagina & uterus: normal bimanual exam, normal palpation, uterine size normal, uterine shape normal and non-tender Bimanual Exam- Adnexa, other: normal adnexae Back/Spine/Pelvis Back: no CVA tenderness Assessment & Plan Assessment & Plan (1) Fluid in endometrial cavity: Comment: Large amount compared to 10/07 ultrasound Code(s): N85.9 - Noninflammatory disorder of uterus, unspecified Category: Medical Plan: Discussed with the patient the finding of fluid in the endometrial cavity, in spite of no vaginal bleeding the concern is the endometrial fluid visualized on ultrasound in case of cervical stenosis might be bleeding into the endometrial cavity and the blood and/or tissue was are unable to pass through the cervical os. Endometrial sampling in postmenopausal bleeding with endometrial fluid is indicated in case endometrial thickness is above 4 mm, however in cases with thin endometrial stripe, 4 mm and below, without any focal lesions, is a reassuring finding with a high negative predictive value for endometrial pathology including endometrial hyperplasia and/or malignancy or polyps. But since the endometrial fluid has increased in volume since 2010, there is the possibility of recurrent bleeding within the endometrial cavity with cervical stenosis in which case endometrial sampling is indicated. Recommended to the patient that the next step is an endometrial sampling via hysteroscopy D&C possible polypectomy versus endometrial biopsy to r/o endometrial pathology including hyperplasia or cancer. All the pros and cons risks and benefits of each approach were discussed with the patient, endometrial biopsy being less invasive, office procedure with less sensitivity and inability diagnose a polyp and removal versus hysteroscopy done under anesthesia more invasive more sensitive to endometrial cancer and possibility of diagnosing and endometrial polyp with the possibility of polypectomy. All questions were answered pt verbalized understanding and decided to proceed with endometrial biopsy. EMB attempted but procedure aborted since the cervix and the os are not visible. Will refer to [facility] for further management. Coding Level of Care Code New Pt Level 3 (02468) Diagnoses Fluid in endometrial cavity N85.9
== END 2024-01-31 14:13 | disposition home or self-care (01) ==
PROVIDERS: PCP Internal Medicine; Visit Provider Obstetrics & Gynecology
DX: N85.9 Noninflammatory disorder of uterus, unspecified (principal)
CPT/HCPCS: 99203

== ENCOUNTER → 2024-01-31 12:48 | Outpatient (BNVA) | payer MEDICARE, SELFPAY | PROVIDERS: PCP Internal Medicine; Visit Provider Obstetrics & Gynecology | DX: N85.9 Noninflammatory disorder of uterus, unspecified (principal) | CPT/HCPCS: 99202 ==

== ENCOUNTER 2024-04-30 08:20 | Outpatient (AMB) | payer MEDICARE, SELFPAY ==
--- NOTE | 2024-04-30 08:22 | AM.OFFVISMDC ---
Intake Vital Signs 04/30/24 08:25 Weight 134 lb BP 120/80 Blood Pressure Location Lt brachial Position Sitting Pulse 90 Pulse Source Pulse Oximeter Pulse Oximetry (%) 100 Oxygen Delivery Method Room Air Intake Visit Reasons: JESSE G0439 Intake Note: Patient here for AWV Allergies meperidine [Demerol] Allergy (Unknown, Verified 04/30/24 09:18) Vomiting Sulfa (Sulfonamide Antibiotics) [SULFA (SULFONAMIDE ANTIBIOTICS)] Allergy (Unknown, Verified 04/30/24 09:18) RASH fentanyl Adverse Reaction (Verified 04/30/24 09:18) Vomiting Medication List - Last Reconciled 04/30/24 by Michelle Peace MD calcium citrate-vitamin D3 315 mg-6.25 mcg (250 unit) (Citracal + Vitamin D Maximum) 1 tab PO DAILY cholecalciferol (vitamin D3) 50 mcg PO DAILY metronidazole 0.75% 1 appl topical BEDTIME raloxifene 60 mg PO DAILY Synthroid (levothyroxine) Take 1 tab alternating with 1/2 tablet every other day PO daily; 90 days NS Yuvafem (estradiol) 10 mcg vaginal 2XW NS Do you need a note to return to daycare/school/sports/work: No HPI SWV G0439 HPI Details SWV ? 74 year old lady with history of osteopenia left femoral neck and hypothyroidism as well as postmenopausal syndrome , here today for her subsequent annual wellness visit. She is up-to-date with her screening mammogram done 10/04/2023, with benign findings. She had a bone density scan done 08/30/2022 which showed normal bone density in lumbar spine and left femur but mild osteopenia starting in left femoral neck.. No history of fractures. She had a recent pelvic/transvaginal ultrasound done 12/2023 which showed Large fluid collections within the endometrium and also within the cervix with possible obstructive lesion/lesions, and is now being followed by [facility] will be scheduling a biopsy for further evaluation. She had a normal fasting lipid panel and fasting blood sugar check 11/08/2023. Up-to-date with her screening colonoscopy done 06/12/[address] Mcnamara. She is up-to-date with her COVID vaccinations, gets yearly flu shots, up-to-date with her pneumonia vaccination, Zostavax vaccine, Tdap and just recently received her RSV vaccine. ? Medical / Social History Reviewed? Past Medical History ?Yes . ? [place] of Care / Care Team list updated ?Yes . ? Surgical/Hospitalization History ?Yes . ? Current Medications (including OTC and supplements) ?Yes . ? Family History ?Yes . ? Tobacco Control form ?Yes . ? AUDIT-C (Alcohol use) form ?Yes . ? Illicit drug use in Social History ?Yes . ? Current diagnosis of depression? ?No ? Appropriate PHQ2/PHQ9 completed ?Yes . ? Data entered by ?Photo Finish Photographer and reviewed by provider ? Fall Risk ? Fall History? Have you had any falls with injury in the past year? ?No . ? Have you had two or more falls in the past year? ?No . ? Fall Risk Assessment: ?No falls in the past year . ? HRA filled out by the patient, reviewed by Provider and scanned. ? SWV ? Balance? Romberg ?negative ? Tandem walk ?Yes . ? Walk and Turn ?Yes . ? Rise from sit to stand ?Yes . ?Vision? Corrective lens ?Yes ? Vision screen ? Up-to-date, she sees Dr. Acosta for her vision screening and glaucoma screening ?Hearing? Whisper test ?pass . ?Written Plan?Completed. See Patient Documents.? [facility] Medical History Fluid in endometrial cavity Cervical cancer Gastroesophageal reflux disease with esophagitis Degenerative disc disease at L5-S1 level History of nephrolithiasis Osteopenia of left femoral neck Family history of leukemia Rosacea Acquired hypothyroidism Surgical History History of conization of cervix Hx of colonoscopy Family History Father Prostate cancer Mother Breast cancer Brother Essential thrombocytosis Leukemia Maternal Aunt Lung cancer Social History Household Members: None Housing: House Are you a primary career development coordinator to a significant other at home: No Do you presently have visiting nurse or other home services: No Alcohol intake: current Alcohol intake frequency: holidays/special occasions only Patient Tobacco Use Status: Never used Tobacco e-Cigarette/Vaping Use: Never Used Current occupational status: retired Cognitive needs: No Hearing needs: No Vision needs: Yes Female Reproductive History Menstrual Other: Followed at [facility] and also sees Dr. Aviles Questionnaire Medicare Wellness Checkup [age] What gender do you identify with?: female During the past 4 weeks, how much have you been bothered by emotional problems such as feeling anxious, depressed, irritable, sad or downhearted, and blue?: not at all During the past 4 weeks, has your physical & emotional health limited your social activities with family, friends, neighbors, or groups?: not at all During the past 4 weeks, how much bodily pain have you generally had?: no pain During the past 4 weeks, was someone available to help you if you needed & wanted help?: yes, as much as I wanted During the past 4 weeks, what was the hardest physical activity you could do for at least 2 minutes?: very heavy Can you get to places out of walking distance without help? (For eg., can you travel alone on buses, taxis or drive your car?): Yes Can you go shopping for groceries or clothes without someone's help?: Yes Can you prepare your own meals?: Yes Can you do your housework without help?: Yes Because of any health problems, do you need the help of another person with your personal care needs such as eating, bathing, dressing or getting around the house?: No Can you handle your own money without help?: Yes During the past 4 weeks, how would you rate your health in general?: very good During the past 4 weeks how have things been going for you?: very well; could hardly better Are you having difficulties driving your car?: no Do you always fasten your seat belt when you are in a car?: yes, usually During past 4 weeks, have you been bothered by the following: never: Falling or dizzy when standing up, Sexual problems?, Trouble eating well?, Teeth or denture problems?, Problems using the telephone? and Tiredness or fatigue? Have you fallen 2 or more times in the past year?: No Are you afraid of falling?: No Are you a smoker?: no During the past 4 weeks, how many drinks of wine, beer, or other alcoholic beverages did you have?: no alcohol at all Do you exercise for about 20 minutes 3 or more times a week?: yes, all the time Have you been given information to help with the following?: yes: Hazards in your house that might hurt you? and yes: Keeping track of your medications? How often do you have trouble taking medicines the way you have been told to take them?: I always take medicine as prescribed How confident are you that you can control & manage most of your health problems?: very confident What is your race?: White Mini Mental State Exam (MMSE) Orientation What is the (year) (season) (date) (day) (month)?: year (2023), season (Summer), date (04/30/2024), day (Monday) and month (April) Where are we (state) (county) (town or city) (hospital) (floor)?: state ([facility]), county ([place]), town or city ([place]) and hospital/clinic ([facility]) Score Score: 9 Activity of Daily Living Bathing - sponge bath, tub bath or shower: receives no assistance (gets in/out by self, if usual bathing means Dressing - getting clothes from closets & drawers, including inner/outer garments & fasteners.: gets clothes & gets completely dressed without help Toileting - going to the 'toilet room' for urine/bowel elimination & cleaning self/arranging clothes: goes to toilet room, cleans self, arranges clothes without help Transfer: moves in & out of bed and chair without help (may use support object) Continence: controls urination/bowel movements completely by self Feeding: feeds self without help Total Score: 0 Information obtained from: patient Using telephone: independent Traveling: independent Shopping: independent Preparing meals: independent Housework: independent Taking medicine: independent Managing money: independent PHQ-9 Over the last 2 weeks, how often have you been bothered by any of the following problems? 1. Little interest or pleasure in doing things: not at all 2. Feeling down, depressed, or hopeless: not at all 3. Trouble falling or staying asleep, or sleeping too much: not at all 4. Feeling tired or having little energy: not at all 5. Poor appetite or overeating: not at all 6. Feeling bad about yourself - or that you are a failure or have let yourself or your family down: not at all 7. Trouble concentrating on things, such as reading the newspaper or watching television: not at all 8. Moving or speaking so slowly that other people could have noticed. Or the opposite - being so fidgety or restless that you have been moving around a lot more than usual: not at all 9. Thoughts that you would be better off or of hurting yourself in some way: not at all Total score: 0 Depression Screening Interpretation: Negative Depression Screening Done: Yes 20697 - PHQ-9 Billing: Yes Source: Developed by DrsFranki Mohamud, Freda Hager, Craig Bartholomew and colleagues, with an educational naseem from [employer]. Physical Exam Vital Signs: Last Vital Signs Pulse 90 04/30/24 08:25 BP 120/80 04/30/24 08:25 Pulse Ox 100 04/30/24 08:25 Oxygen Delivery Method Room Air 04/30/24 08:25 Assessment & Plan Assessment & Plan (1) Osteopenia of left femoral neck: Code(s): M85.852 - Other specified disorders of bone density and structure, left thigh Plan: Continue with cholecalciferol 50 mcg daily, and Citracal daily, continue with daily regular weight-bearing exercise, and ordered a bone density scan to be done together with screening mammogram dated for 10/08/2024 (2) Fluid in endometrial cavity: Comment: Large amount compared to 10/07 ultrasound Code(s): N85.9 - Noninflammatory disorder of uterus, unspecified Plan: Followed by [facility], scheduled for biopsy later this month. (3) Acquired hypothyroidism: Code(s): E03.9 - Hypothyroidism, unspecified Plan: Continue with Synthroid, repeat another TSH and free T4 in six-month (4) Encounter for subsequent annual wellness visit (AWV) in Medicare patient: Code(s): Z00.00 - Encounter for general adult medical examination without abnormal findings Plan: Medical wellness checklist reviewed and discussed with patient as and updated. She is up-to-date with her vaccinations, will be getting her yearly flu shot and COVID vaccine later this year. (5) Vaginal dryness, menopausal: Code(s): N95.1 - Menopausal and female climacteric states Plan: On Yuvafen Orders: Orders XR DEXA axial skeleton 10/08/24 M85.852 - Other specified disorders of bone density and structure, left thigh Medications: Refilled Yuvafem (estradiol) 10 mcg vaginal 2XW 24 tabs 1RF NS Quality Reporting (2019) Depression/Bipolar (159/160/161/177) PHQ-9: Total score: 0 Coding Level of Care Code Medicare Subsequent (G0439) Diagnoses Osteopenia of left femoral neck M85.852 Fluid in endometrial cavity N85.9 Acquired hypothyroidism E03.9 Encounter for subsequent annual wellness visit (AWV) in Medicare patient Z00.00 Vaginal dryness, menopausal N95.1 Advance Care Planning Advance Care Planning discussion: Declined forms Date of discussion: 04/30/24 Who was present: Patient
[2024-04-30 08:25] VITALS: BP 120/80; PULSE 90; O2SAT 100
== END 2024-04-30 09:21 | disposition home or self-care (01) ==
PROVIDERS: PCP Internal Medicine; Visit Provider Internal Medicine
DX: Z00.00 Encounter for general adult medical examination without abnormal findings (principal); M85.852 Other specified disorders of bone density and structure, left thigh; N85.9 Noninflammatory disorder of uterus, unspecified; E03.9 Hypothyroidism, unspecified; N95.1 Menopausal and female climacteric states
CPT/HCPCS: G0439

== ENCOUNTER 2024-08-26 09:43 | Outpatient (AMB) | payer MEDICARE, SELFPAY ==
--- OUTSIDE RECORDS SUMMARY | 2024-08-26 10:12 | XMS_ITS ---
[facility] Organization [facility] Address [address] [place] [address] Care Team Providers Care Blueprint Developer Name Role Phone Kobi MIRANDA, Michelle Primary Care Provider Jason Brennan Unavailable [phone] REASON FOR VISIT abnormal barium swallow,gastroesophageal reflux disease PROBLEMS Problem Type ICD Code Onset Dates Problem Status W/U Status Risk SNOMED Code Notes Problem Gastric polyps (K31.7) Active confirmed Benign neoplasm of stomach (41004660) Problem Gastroesophageal reflux disease (K21.9) Active confirmed Gastroesophagea l reflux disease (788214422) Encounters Encounter Location Date Provider Diagnosis [facility] Outpatient [address] [place] [address] [id number] 06/14/2023 Jason Mcnamara Hiatal hernia K44.9 ; Gastric polyps K31.7 and Gastroesophageal reflux disease K21.9 ASSESSMENTS Encounter Date Diagnosis Assessment Notes Treatment Notes Treatment Clinical Notes 06/14/2023 Hiatal hernia (ICD-1 0 - K44.9) 06/14/2023 Gastric polyps (ICD- 10 - K31.7) 06/14/2023 Gastroesophageal ref lux disease (ICD-10 - K21.9) PLAN OF TREATMENT No Information
--- OUTSIDE RECORDS SUMMARY | 2024-08-26 10:12 | XMS_ITS ---
Author Organization [facility] Address [address] [place] [address] Care Team Providers Care Windscreen Fitter Name Role Phone Michelle Peace MD Primary Care Provider Jason Brennan [phone] REASON FOR VISIT colon recall Encounters Encounter Location Date Provider Diagnosis [facility] [address] [place] [id number] 05/12/2023 Jason Mcnamara PLAN OF TREATMENT No Information
--- OUTSIDE RECORDS SUMMARY | 2024-08-26 10:13 | XMS_ITS | Patient Health Record ---
Author Organization [facility] Address [address] [place] [address] Care Team Providers Care Cracker Off Name Role Phone Michelle Peace MD Primary Care Provider Jason Brennan Unavailable [phone] ALLERGIES Allergen (clinical drug ingredient) Drug/Non Drug Allergy documented on EMR Reaction Allergy Type Onset Date Status Sulfa rash Drug Allergy Active meperidine Demerol vomiting Drug Allergy Active REASON FOR REFERRAL No Information MEDICATIONS Medication SIG (Take, Route, Frequency, Duration) Notes Start Date End Date Status Debrox 6.5 % 5 drops into affecte d ear Otic as directed /monthy Active Saline Nasal [place] 0.65 % as directed Nasally Active Refresh 1.4-0.6 % as directed Ophthalmic Active Pseudoephedrine HCl 30 MG 2 tablets as n eeded Orally every 6 hrs Active Raloxifene HCl 60 MG Orally Active Yuvafem 10 MCG Vaginal Activ e Citracal Slow Release Active Pantoprazole Sodium 40 MG Oral for 30 Active Synthroid 50 MCG 1 tablet Orally Once a day Active Vitamin D3 1000 UNIT 1 capsule Orally On ce a day Active Tylenol Extra Strength 500 MG 1 tablet a s needed Orally every 6 hrs Active Meclizine HCl 25 MG 1 tablet as needed Orally Once a day/prn Active IMMUNIZATIONS Vaccine Route Administration Date Status Comme nts Influenza Unknown 04/21/2020 Administered SOCIAL HISTORY Sex Assigned At : Social History Observation Description Sex Assigned At Unknown Alcohol Screen Question Answer Notes Did you have a drink contain ing alcohol in the past year? Yes How often did you have a dri nk containing alcohol in the past year? Monthly or less (1 point) How many drinks did you have on a typical day when you were drinking in the past year? 1 or 2 drinks (0 point) How often did you have 6 or more drinks on one occasion in the past year? Never (0 point) Points 1 Interpretation Negative PROBLEMS Problem Type ICD Code Onset Dates Problem Status W/U Status Risk SNOMED Code Notes Problem Personal history of colonic polyps (Z86.010) Active confirmed History of poly p of colon (situation) (242531997) Problem Gastroesophageal reflux disease (K21.9) Active confirmed Gastroesophagea l reflux disease (981516951) Problem Gastric polyps (K31.7) Active confirmed Benign neoplasm of stomach (75422842) Problem Abnormal barium swallow (R93.3) Active confirmed 044928444 Problem Esophageal dysphagia (R13.10) Active confirmed 37909184 Problem Diverticulosis of colon (K57.30) Active confirmed Diverticulosi s of colon (718501305) Problem Gastroesophageal reflux disease, unspecified whether esophagitis present (K21.9) Active confirmed [id number] PLAN OF TREATMENT Pending Test Test Name Order Date XR BARIUM SWALLOW-ESOPHAGUS 11/26/2020 Pathology 06/14/2023 Future Test Test Name Order Date COLONOSCOPY 02/03/2015 UPPER GI ENDOSCOPY 03/21/2023 UPPER GI ENDOSCOPY 06/01/2023 Insurance Providers Payer Name Payer Address Payer Phone Subscriber Number Group Number Insured Name Patient Relationship to Insured Coverage Start Date Coverage End Date MEDICARE OF [place] [address] [place] [address] [id number] MÓNICA WEBBER Self - patient is the insured [employer] ATT[employer] CLAIMS [address] [place] [address] [id number] MÓNICA WEBBER Self - patient is the insured MEDICAL (GENERAL) HISTORY Medical History History ICD Code Denies [place],DM,CVA,Lung disease,renal dise ase Cervical cancer as below 1981 A small tubular adenoma spencer sheree in 2001, with subsequent negative colonoscopies in 2004 and 2009, other than some sigmoid diverticulosis and internal hemorrhoids Hypothyroidism Kidney stone Colonoscopy 2014 with a small tubular ad enoma removed from the cecum Negative colonoscopy in 05/2021 Surgical History Surgery Date(Month/Year) Cervical conization 1981
--- OUTSIDE RECORDS SUMMARY | 2024-08-26 10:13 | XMS_ITS ---
Author Organization [facility] Address [address] [place] [address] Care Team Providers Care Tip Length Checker Name Role Phone Michelle Peace MD Primary Care Provider Jason Brennan Unavailable [phone] ALLERGIES Allergen (clinical drug ingredient) Drug/Non Drug Allergy documented on EMR Reaction Allergy Type Onset Date Status Sulfa rash Drug Allergy Active meperidine Demerol vomiting Drug Allergy Active REASON FOR VISIT Patient presents today for epigastric pain MEDICATIONS Medication SIG (Take, Route, Frequency, Duration) Notes Start Date End Date Status Citracal Slow Release Active Pantoprazole Sodium 40 MG Oral for 30 Active Raloxifene HCl 60 MG Orally Active Yuvafem 10 MCG Vaginal Activ e Vitamin D3 1000 UNIT 1 capsule Orally On ce a day Active Tylenol Extra Strength 500 MG 1 tablet a s needed Orally every 6 hrs Active Meclizine HCl 25 MG 1 tablet as needed Orally Once a day/prn Active Debrox 6.5 % 5 drops into affecte d ear Otic as directed /monthy Active Saline Nasal [place] 0.65 % as directed Nasally Active Refresh 1.4-0.6 % as directed Ophthalmic Active Pseudoephedrine HCl 30 MG 2 tablets as n eeded Orally every 6 hrs Active Synthroid 50 MCG 1 tablet Orally Once a day Active SOCIAL HISTORY Sex Assigned At : Social [...] Never (0 point) Points 1 Interpretation Negative VITAL SIGNS BMI 26.15 kg/m2 05/12/2023 Blood pressure systolic 00 mm Hg 05/12/20 23 Blood pressure diastolic 00 mm Hg 023 Height 62 in 05/12/2023 Temperature 97.5 degrees Fahrenheit 05/12/20 23 Weight 143 lbs 05/12/2023 Encounters Encounter Location Date Provider Diagnosis [facility] [address] [place] [address] 05/12/2023 Jason Mcnamara Personal history of colonic polyps Z86.010 ; Gastroesophageal reflux disease, unspecified whether esophagitis present K21.9 and Abnormal barium swallow R93.3 ASSESSMENTS Encounter Date Diagnosis Assessment Notes Treatment Notes Treatment Clinical Notes 05/12/2023 Personal history of colonic polyps (ICD-10 - Z86.010) Repeat colonoscopy in 05/202605/12/2023 Gastroesophageal reflux disease, unspecified whether esophagitis present (ICD-10 - K21.9) 05/12/2023 Abnormal barium swallow (ICD-10 - R93.3) Stop Advil for 1 week before the endoscopy PLAN OF TREATMENT Treatment Notes Assessment Notes Personal history of colonic polyps Repea t colonoscopy in 05/2026 Abnormal barium swallow Stop Advil for 1 week before the endoscopy Future Test Test Name Order Date UPPER GI ENDOSCOPY 06/01/2023 Next Appt Details Follow Up: prn, Reason: Progress Notes * Examination Category Sub-Category Detail Notes General Examination GENERAL APPEARANCE: pleasant , well nourished, well developed, in no acute distress EYES: sclera non-icteric NECK/THYROID: no cervical lymphade nopathy, neck supple HEART: S1, S2 normal LUNGS: clear to auscultatio n bilaterally ABDOMEN: normal bowel sounds, no guarding or rigidity, no hepatosplenomegaly, no masses palpable, soft, nontender, nondistended. NEUROLOGIC: alert and oriented SKIN: nonjaundiced, no spi nathan angiomata. EXTREMITIES: no edema ORAL CAVITY: mucosa moist
--- NOTE | 2024-08-26 11:01 | MHC.OFFWIV ---
Intake Vital Signs 08/26/24 11:14 Weight 140 lb BP 130/80 Blood Pressure Location Rt brachial Position Sitting Temp 97.5 F Temp Source Oral Intake Visit Reasons: EP ? UTI Intake Note: Patient here for painful urination and frequent urination that started Monday night. Patient Tobacco Use Status: Never used Tobacco Allergies meperidine [Demerol] Allergy (Unknown, Verified 08/26/24 11:14) Vomiting Sulfa (Sulfonamide Antibiotics) [SULFA (SULFONAMIDE ANTIBIOTICS)] Allergy (Unknown, Verified 08/26/24 11:14) RASH fentanyl Adverse Reaction (Verified 08/26/24 11:14) Vomiting Do you need a note to return to daycare/school/sports/work: No HPI HPI Comments History of Present Illness Details History of Present Illness - The patient is a 74-year-old female presenting with concerns of a possible urinary tract infection. - History of gross hematuria and presumed stones five to six years ago with follow-up ultrasounds showing no stones present. - Recent hematuria began 2 days ago, resolved by early yesterday with transient burning on urination. - Denies current urinary symptoms, including pain, bleeding, or increased frequency beyond her usual intake-related pattern. - No noted back pain, fever, or abdominal discomfort during this episode. Physical Exam General: Cooperative, healthy appearing, comfortable, no acute distress and well developed Orientation: Patient oriented x3 Limitations: No limitations Head: Normal to inspection Ears: Hearing grossly normal bilaterally Nose: Normal external nose present Face and sinus: Normal facial exam Eyes: Appearance normal, both eyes and all related structures Neck: Normal visual inspection and Yes full ROM Respiratory: Normal respiratory effort and able to speak in complete sentences : negative CVA bilaterally Skin: No rashes or lesions noted Neuro: Patient oriented x3 Extremities: Normal to inspection [facility] Medical History Fluid in endometrial cavity Cervical cancer Gastroesophageal reflux disease with esophagitis Degenerative disc disease at L5-S1 level History of nephrolithiasis Osteopenia of left femoral neck Family history of leukemia Rosacea Acquired hypothyroidism Surgical History History of conization of cervix Hx of colonoscopy Family History Father Prostate cancer Mother Breast cancer Brother Essential thrombocytosis Leukemia Maternal Aunt Lung cancer Social History Household Members: None Housing: House Are you a primary health care coordinator to a significant other at home: No Do you presently have visiting nurse or other home services: No Alcohol intake: current Alcohol intake frequency: holidays/special occasions only Patient Tobacco Use Status: Never used Tobacco e-Cigarette/Vaping Use: Never Used Current occupational status: retired Cognitive needs: No Hearing needs: No Vision needs: Yes Review of Systems Const All systems reviewed & are unremarkable except as noted in HPI and below Assessment & Plan Assessment & Plan (1) Dysuria: Code(s): R30.0 - Dysuria Plan: VSS, pt well appearing and PE unremarkable/CVA negative. UA neg for blood or infection. Discussed treating now vs waiting for cx to grow out as her symptoms have resolved. The management plan involves sending a urine culture to rule out infection before any treatment initiation, acknowledging the patient?s preference against antibiotics without confirmation. With no evidence of ongoing lithiasis, current preventive measures remain appropriate. Should a positive culture result, antibiotics will be tailored accordingly; otherwise, symptom monitoring continues as her active symptoms have resolved. Patient was informed and verbally consented to the use of an ambient scribe for clinic note documentation during this visit. Orders: Orders Urine Culture Today N39.0 - Urinary tract infection, site not specified Coding Level of Care Code Est Pt Level 3 (04150) Diagnoses Dysuria R30.0
[2024-08-26 11:14] VITALS: BP 130/80; TEMP 36.4
== END 2024-08-26 11:34 | disposition home or self-care (01) ==
PROVIDERS: PCP Internal Medicine; Visit Provider Physician Assistant
DX: R30.0 Dysuria (principal); Z13.9 Encounter for screening, unspecified

== ENCOUNTER 2024-08-26 09:43 | Outpatient (REF) | payer MEDICARE, SELFPAY | END 2024-08-26 09:44 | disposition home or self-care (01) | LOC: HO.LAB 09:43 | PROVIDERS: PCP Internal Medicine | DX: R30.0 Dysuria (principal); N39.0 Urinary tract infection, site not specified | CPT/HCPCS: 81003; 87086; 99212 ==

== ENCOUNTER 2024-10-08 11:26 | Outpatient (REF) | payer MEDICARE, SELFPAY ==
--- OUTSIDE RECORDS SUMMARY | 2024-10-08 12:42 | XMS_ITS | Patient Health Record ---
Author Organization [facility] Address [address] [place] [address] Care Team Providers Care Mainframe Architect Name Role Phone Michelle Peaec MD Primary Care Provider Jason Brennan Unavailable [phone] ALLERGIES Allergen (clinical drug ingredient) Drug/Non Drug Allergy documented on EMR Reaction Allergy Type Onset Date Status Sulfa rash Drug Allergy Active meperidine Demerol vomiting Drug Allergy Active REASON FOR REFERRAL No Information MEDICATIONS Medication SIG (Take, Route, Frequency, Duration) Notes Start Date End Date Status Debrox 6.5 % 5 drops into affecte d ear Otic as directed /monthy Active Saline Nasal [place] 0.65 % as directed Nasally Active Refresh [...] History of poly p of colon (situation) (906061402) Problem Gastroesophageal reflux disease (K21.9) Active confirmed Gastroesophagea l reflux disease (084989389) Problem Gastric polyps (K31.7) Active confirmed Benign neoplasm of stomach (97422314) Problem Abnormal barium swallow (R93.3) Active confirmed 482324435 Problem Esophageal dysphagia (R13.10) Active confirmed 03689779 Problem Diverticulosis of colon (K57.30) Active confirmed Diverticulosi s of colon (251686340) Problem Gastroesophageal reflux disease, unspecified whether esophagitis present (K21.9) Active confirmed 226492902 PLAN OF TREATMENT Pending Test Test Name Order Date XR BARIUM SWALLOW-ESOPHAGUS 11/26/2020 Pathology 06/14/2023 Future Test Test Name Order Date COLONOSCOPY 02/03/2015 UPPER GI ENDOSCOPY 03/21/2023 UPPER GI ENDOSCOPY 06/01/2023 Insurance Providers Payer Name Payer Address Payer Phone Subscriber Number Group Number Insured Name Patient Relationship to Insured Coverage Start Date Coverage End Date MEDICARE OF [place] [address] [place] [address] [id number] MÓNICA WEBBER Self - patient is the insured [employer] ATT[employer] CLAIMS [address] [place] [address] [id number] MÓNICA WEBBER Self - patient is the insured MEDICAL (GENERAL) HISTORY Medical History History ICD Code Denies DE,DM,CVA,Lung disease,renal dise ase Cervical cancer as below [...]
--- OUTSIDE RECORDS SUMMARY | 2024-10-08 12:42 | XMS_ITS ---
Author Organization [facility] Address [address] [place] [address] Care Team Providers Care High School Art Teacher Name Role Phone Kobi MIRANDA, Michelle Primary Care Provider Jason Brennan Unavailable [phone] REASON FOR VISIT abnormal barium swallow,gastroesophageal reflux disease PROBLEMS Problem Type ICD Code Onset Dates Problem Status W/U Status Risk SNOMED Code Notes Problem Gastric polyps (K31.7) Active confirmed Benign neoplasm of stomach (74926994) Problem Gastroesophageal reflux disease (K21.9) Active confirmed Gastroesophagea l reflux disease (799527727) Encounters Encounter Location Date Provider Diagnosis [facility] Outpatient [address] [place] [phone] 06/14/2023 Jason Mcnamara Hiatal hernia K44.9 ; Gastric polyps K31.7 and Gastroesophageal reflux disease K21.9 ASSESSMENTS Encounter Date Diagnosis Assessment Notes Treatment Notes Treatment Clinical Notes 06/14/2023 Hiatal hernia (ICD-1 0 - K44.9) 06/14/2023 Gastric polyps (ICD- 10 - K31.7) 06/14/2023 Gastroesophageal ref lux disease (ICD-10 - K21.9) PLAN OF TREATMENT No Information
--- OUTSIDE RECORDS SUMMARY | 2024-10-08 12:42 | XMS_ITS ---
Author Organization [facility] Address [address] [place] [address] Care Team Providers Care Urgent Care Name Role Phone Michelle Peace MD Primary Care Provider Jason Brennan [phone] REASON FOR VISIT colon recall Encounters Encounter Location Date Provider Diagnosis [facility] [address] [place] [phone] 05/12/2023 Jason Mcnamara PLAN OF TREATMENT No Information
--- OUTSIDE RECORDS SUMMARY | 2024-10-08 12:42 | XMS_ITS ---
Author Organization [facility] Address [address] [place] [address] Care Team Providers Care Nuclear Control Room Operator Name Role Phone Michelle Peace MD Primary Care Provider Jason Brennan Unavailable [phone] ALLERGIES Allergen (clinical drug ingredient) Drug/Non Drug [...] Otic as directed /monthy Active Saline Nasal [place] 0.65 % as directed Nasally Active Refresh [...] 05/12/2023 Encounters Encounter Location Date Provider Diagnosis [facility] [address] [place] [address] 05/12/2023 Jason Mcnamara Personal history of colonic [...]
== END 2024-10-08 11:27 | disposition home or self-care (01) ==
LOC: HO.MAMMO 11:26
PROVIDERS: PCP Internal Medicine; Visit Provider Internal Medicine
DX: Z12.31 Encounter for screening mammogram for malignant neoplasm of breast (principal); Z13.820 Encounter for screening for osteoporosis; M85.852 Other specified disorders of bone density and structure, left thigh
CPT/HCPCS: 77063; 77067; 77080

== ENCOUNTER → 2024-10-08 12:00 | Outpatient (BNV) | payer MEDICARE, SELFPAY | PROVIDERS: PCP Internal Medicine; Visit Provider Internal Medicine | DX: Z12.31 Encounter for screening mammogram for malignant neoplasm of breast (principal) | CPT/HCPCS: 77063; 77067 ==

== ENCOUNTER 2024-10-23 08:14 | Outpatient (REF) | payer MEDICARE, SELFPAY ==
--- NOTE | ~2024-10-23 | US_ITS ---
CLINICAL HISTORY: ENDO POLYP, OVARIAN CYST US pelvis transabdominal and transvaginal Comparison: 01/08/2024 Findings: Uterus measures 5 x 1.8 x 2.4 cm. Normal myometrium. Endometrium two mm thickness. Trace amount of fluid in the endometrial lumen is much less conspicuous than prior exam. 14 mm mildly partially collapsed nabothian cyst is less conspicuous than prior exam. Right ovary measures 2.8 x 1.6 x 2 cm. 1.2 cm (versus 1.7 cm previously) simple right ovarian cyst not requiring further follow-up. Left ovary 1.6 x 0.7 x 1.4 cm. No free fluid. IMPRESSION: 1. Small right ovarian cyst not requiring further follow-up. 2. Trace endometrial luminal fluid significantly decreased from prior study. This document has been electronically signed by: Reema Pugh MD on 10/24/2024 10:43:33
--- OUTSIDE RECORDS SUMMARY | 2024-10-23 08:35 | XMS_ITS ---
Author Organization [facility] Address [address] [place] [address] Care Team Providers Care Account Service Representative Name Role Phone Michelle Peace MD Primary Care Provider Jason Brennan [phone] REASON FOR VISIT colon recall Encounters Encounter Location Date Provider Diagnosis [facility] [address] [place] [phone] 05/12/2023 Jason Mcnamara Plan Of Treatment No Information Progress Notes * MÓNICA BARNETT LDOB: [birth year] (73 yo F)Acc No.[id number]:05/12/2023 Patient:?MÓNICA BARNETT :1950???Age:73 Y???Sex:Female Address:[address], [place] [address] * true * Date:? Generated for Alin aleman/Elias/eTransmitting on:?10/23/2024 08:34 AM EST
--- OUTSIDE RECORDS SUMMARY | 2024-10-23 08:35 | XMS_ITS ---
Author Organization [facility] Address [address] [place] [phone] Care Team Providers Care Hospital Recruiter Name Role Phone Michelle Peace MD Primary Care Provider Jason Brennan Unavailable [phone] REASON FOR VISIT abnormal barium swallow,gastroesophageal reflux disease Problems Problem Type SNOMED Code ICD Code Onset Dates Problem Status W/U Status Risk Notes Problem Benign neoplasm of stomach (80046072) Gastric polyps (K31.7) Active confirmed Problem Gastroesophageal reflux disease (385948623) Gastroesophageal reflux disease (K21.9) Active confirmed Encounters Encounter Location Date Provider Diagnosis [facility] Outpatient [address] [place] [phone] 06/14/2023 Jason Mcnamara Hiatal hernia K44.9 ; Gastric polyps K31.7 and Gastroesophageal reflux disease K21.9 Assessments Encounter Date Diagnosis (ICD Code) Assessment Notes Treatment Notes Treatment Clinical Notes Section Notes 06/14/2023 Hiatal hernia (ICD-10 - K44.9) 06/14/2023 Gastric polyps (ICD-10 - K31.7) 06/14/2023 Gastroesophageal reflux disease (ICD-10 - K21.9) Plan Of Treatment No Information Progress Notes * MÓNICA BARNETT LDOB: [birth year] (74 yo F)Acc No.[id number]:06/14/2023 EGD/MAC Patient:?MÓNICA BARNETT Ruy Provider:?Jason Mcnamara MD :1950???Age:73 Y???Sex:Female D ate:06/14/2023 Address:[address] [facility] [place], [place] Pcp:Michelle Peace MD Subjective: * Chief Complaints: * ???1. Abnormal barium swallo w,gastroesophageal reflux disease. * Medical History:? Objective: * Vitals:? Assessment: * Assessment: 1.?Hiatal hernia - K44.9 (Pr imary)???2.?Gastric polyps - K31.7???3.?Gastroesophageal reflux disease - K21.9??? Plan: * Treatment: * Procedure Codes:?82743 UPPER GI ENDOSCOPY, BIOPSY * * The named appointment provid er may or may not be the originator of this progress note, and it is not deemed complete until electronically signed by the appointment provider. Sign off status: Pending * Provider:?Jason Mcnamara MD Date:? 023 Generated for Alin aleman/Elias/Leoncioitting on:?10/23/2024 08:35 AM EST
--- OUTSIDE RECORDS SUMMARY | 2024-10-23 08:35 | XMS_ITS ---
Author Organization [facility] Address [address] [place] [address] Care Team Providers Care Fitness Teacher Name Role Phone Michelle Peace MD Primary Care Provider Jason Brennan Unavailable [phone] Allergies Allergen (clinical drug ingredient) Drug/Non Drug Allergy documented on EMR Reaction Allergy Type Onset Date Status Sulfa rash Drug Allergy Active meperidine Demerol vomiting Drug Allergy Active REASON FOR VISIT Patient presents today for epigastric pain Medications Medication SIG (Take, Route, Frequency, Duration) Notes [...] Otic as directed /monthy Active Saline Nasal [place] 0.65 % as directed Nasally Active Refresh 1.4-0.6 % as directed Ophthalmic Active Pseudoephedrine HCl 30 MG 2 tablets as n eeded Orally every 6 hrs Active Synthroid 50 MCG 1 tablet Orally Once a day Active Social History Alcohol Screen Question Answer Notes Did you [...] Never (0 point) Points 1 Interpretation Negative Section Notes: Nonsmoker; no significant al cohol use. Vital Signs Temperature 97.5 degrees Fahrenheit 05/12/20 23 Blood pressure systolic 00 mm Hg 05/12/20 23 Blood pressure diastolic 00 mm Hg 023 Height 62 in 05/12/2023 Weight 143 lbs 05/12/2023 BMI 26.15 kg/m2 05/12/2023 Encounters Encounter Location Date Provider Diagnosis [facility] [address] [place] [address] 05/12/2023 Jason Mcnamara Personal history of colonic polyps Z86.010 ; Gastroesophageal reflux disease, unspecified whether esophagitis present K21.9 and Abnormal barium swallow R93.3 Assessments Encounter Date Diagnosis (ICD Code) Assessment Notes Treatment Notes Treatment Clinical Notes Section Notes 05/12/2023 Personal history of colonic polyps (ICD-10 - Z86.010) Repeat colonoscopy in 05/2026 Overall, Mónica appears quite well. in reviewing her symptomatology with her it does seem that the majority of her discomfort is musculoskeletal in etiology as opposed to anything particularly GI related. However, we did review that gastroesophageal reflux and esophageal spasm can cause pain to radiate to the mid-scapular area in the back. At this point she's not using any acid suppression and seems to be doing well without it. She is not having any worrisome symptoms such as anorexia or dysphagia. Nonetheless, I did recommend she undergo an upper endoscopy for definitive evaluation given the barium swallow report suggestive of at least esophagitis in the distal esophagus. Full consent has been obtained for the endoscopy, including risks of bleeding and perforation. The procedure will be done with monitored anesthesia care. If the upper endoscopy is nonrevealing I would simply observe her and hold off on any further treatment with acid suppression. If we find significant esophagitis and/or Rodriguez's esophagus then I would most likely want to put her back on some acid suppression We did review her colonoscopy from 2020 and I advised her that I don't feel strongly about her needing any further screening colonoscopies, but she would like to consider to have another one in 2025 as a five-year followup. She will be put into the recall system for that. Mónica was comfortable with this plan. Thank you again for allowing me to participate in Mónica's care. I shall continue to keep you advised of her progress. 05/12/2023 Gastroesophageal reflux disease, unspecified whether esophagitis present (ICD-10 - K21.9) Overall, Mónica appears quite well. in reviewing her symptomatology with her it does seem that the majority of her discomfort is musculoskeletal in etiology as opposed to anything particularly GI related. However, we did review that gastroesophageal reflux and esophageal spasm can cause pain to radiate to the mid-scapular area in the back. At this point she's not using any acid suppression and seems to be doing well without it. She is not having any worrisome symptoms such as anorexia or dysphagia. Nonetheless, I did recommend she undergo an upper endoscopy for definitive evaluation given the barium swallow report suggestive of at least esophagitis in the distal esophagus. Full consent has been obtained for the endoscopy, including risks of bleeding and perforation. The procedure will be done with monitored anesthesia care. If the upper endoscopy is nonrevealing I would simply observe her and hold off on any further treatment with acid suppression. If we find significant esophagitis and/or Rodriguez's esophagus then I would most likely want to put her back on some acid suppression We did review her colonoscopy from 2020 and I advised her that I don't feel strongly about her needing any further screening colonoscopies, but she would like to consider to have another one in 2025 as a five-year followup. She will be put into the recall system for that. Mónica was comfortable with this plan. Thank you again for allowing me to participate in Mónica's care. I shall continue to keep you advised of her progress. 05/12/2023 Abnormal barium swallow (ICD-10 - R93.3) Stop Advil for 1 week before the endoscopy Overall, Mónica appears quite well. in reviewing her symptomatology with her it does seem that the majority of her discomfort is musculoskeletal in etiology as opposed to anything particularly GI related. However, we did review that gastroesophageal reflux and esophageal spasm can cause pain to radiate to the mid-scapular area in the back. At this point she's not using any acid suppression and seems to be doing well without it. She is not having any worrisome symptoms such as anorexia or dysphagia. Nonetheless, I did recommend she undergo an upper endoscopy for definitive evaluation given the barium swallow report suggestive of at least esophagitis in the distal esophagus. Full consent has been obtained for the endoscopy, including risks of bleeding and perforation. The procedure will be done with monitored anesthesia care. If the upper endoscopy is nonrevealing I would simply observe her and hold off on any further treatment with acid suppression. If we find significant esophagitis and/or Rodriguez's esophagus then I would most likely want to put her back on some acid suppression We did review her colonoscopy from 2020 and I advised her that I don't feel strongly about her needing any further screening colonoscopies, but she would like to consider to have another one in 2025 as a five-year followup. She will be put into the recall system for that. Mónica was comfortable with this plan. Thank you again for allowing me to participate in Mónica's care. I shall continue to keep you advised of her progress. Plan Of Treatment Treatment Notes Assessment Notes Personal history of colonic polyps Repea t colonoscopy in 05/2026 Abnormal barium swallow Stop Advil for 1 week before the endoscopy Future Test Test Name Order Date UPPER GI ENDOSCOPY 06/01/2023 Next Appt Details Follow Up: prn, Reason: Progress Notes * MÓNICA BARNETT LDOB: [birth year] (73 yo F)Acc No.[id number]:05/12/2023 Progress Notes Patient:?MÓNICA BARNETT Provider:?Jason Mcnamara MD :1950???Age:73 Y???Sex:Female D ate:05/12/2023 Address:[address] [place] [address] [place] , [id number] Pcp:Michelle Peace MD Subjective: * Chief Complaints: * ???Patient presents today fo r epigastric pain * HPI: ???incontinence:? I saw Mónica in followup today in regard to her abnormal barium swallow and her symptoms of gastroesophageal reflux. ?I last saw Mónica in May of 2021, at which time she underwent a negative followup screening colonoscopy. She developed the onset of predominantly mid- scapular back pain earlier this year. She described that it was radiating anteriorly into her chest as well. However the majority of the pain was in her back. She never had any associated dysphagia, vomiting, anorexia, nor abdominal pain. Based on her symptomatology she had a workup with a barium swallow describing reflux and some questionable distal esophagitis. An abdominal ultrasound was negative for gallstones. She was treated with a course of pantoprazole which gave her some mild, if any, relief. She has subsequently been off pantoprazole and has not noticed any worsening of her symptoms. However, she describes that she presently has actually been feeling well other than the mid-scapular pain for which she uses Advil with moderate relief. She does describe a previous CT scan that has shown some degenerative changes in her spine in that area which she thinks is actually causing her symptoms. ?Her bowel movements have been regular and without any signs of bleeding. She denies any jaundice nor unintentional weight loss. * ROS:?General/Constitutional:?Change in appetite?denies.?Chills?denies.?Fatigue?denies.?Ophthalmologic:?Patient denies? Negative..?ENT:?Patient denies?Negative..?Respiratory:?Patient denies?No coughing/hemoptysis..?Cardiovascular:?Patient denies? No chest pain/orthopnea..?Gastrointestinal:?Comments?See HPI for details.?Genitourinary:?Patient denies? No dysuria/hematuria..?Incontinence?denies.?Musculoskeletal:?Patient denies? No specific arthralgias/myalgias..?Skin:?Patient denies?No rash/pruritus..?Neurologic:?Patient denies? No headaches/seizures..?Psychiatric:?Patient denies?Negative..? * Medical History:? * Surgical History:?Cervical c onization 1981 * Hospitalization/Major Diagno stic Procedure:? * Family History:?Father: dece ased.?Mother: , diagnosed with HTN (hypertension).?Maternal Grand Father: .?Paternal Grand Mother: diagnosed with Colon cancer.? * Social History:?Tobacco Use:?Tobacco Use/Smoking?Are you a: nonsmoker.?Drugs/Alcohol:?Alcohol Screen?Did you have a drink containing alcohol in the past year??Yes,?How often did you have a drink containing alcohol in the past year??Monthly or less (1 point), How many drinks did you have on a typical day when you were drinking in the past year??1 or 2 drinks (0 point),?How often did you have 6 or more drinks on one occasion in the past year??Never (0 point),?Points?1,?Interpretation?Negative.?Miscellaneous:?Marital status: . 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 ???Nonsmoker; no significant alcohol use. * Medications:?TakingDebrox 6. 5 % Solution 5 drops into affected ear Otic as directed /monthySaline Nasal [place] 0.65 % Solution as directed Nasally Refresh 1.4-0.6 % Solution as directed Ophthalmic Pseudoephedrine HCl 30 MG Tablet 2 tablets as needed Orally every 6 hrsSynthroid 50 MCG Tablet 1 tablet Orally Once a dayVitamin D3 1000 UNIT Capsule 1 capsule Orally Once a dayTylenol Extra Strength 500 MG Tablet 1 tablet as needed Orally every 6 hrsMeclizine HCl 25 MG Tablet Chewable 1 tablet as needed Orally Once a day/prnRaloxifene HCl 60 MG Tablet Orally Yuvafem 10 MCG Tablet Vaginal Citracal Slow Release Pantoprazole Sodium 40 MG Tablet Delayed Release Oral Taking Debrox 6.5 % Solution 5 drops into affected ear Otic as directed /monthyTaking Saline Nasal [place] 0.65 % Solution as directed Nasally Taking Refresh 1.4-0.6 % Solution as directed Ophthalmic Taking Pseudoephedrine HCl 30 MG Tablet 2 tablets as needed Orally every 6 hrsTaking Synthroid 50 MCG Tablet 1 tablet Orally Once a dayTaking Vitamin D3 1000 UNIT Capsule 1 capsule Orally Once a dayTaking Tylenol Extra Strength 500 MG Tablet 1 tablet as needed Orally every 6 hrsTaking Meclizine HCl 25 MG Tablet Chewable 1 tablet as needed Orally Once a day/prnTaking Raloxifene HCl 60 MG Tablet Orally Taking Yuvafem 10 MCG Tablet Vaginal Taking Citracal Slow Release Taking Pantoprazole Sodium 40 MG Tablet Delayed Release Oral DiscontinuedmetroNIDAZOLE 0.75 % Cream 1 application to affected area Externally Twice a dayPseudoephedrine HCl 30 MG Tablet 1 tablet as needed Orally every 6 hrsBenadryl 12.5 MG/5ML Elixir Orally Medication List reviewed and reconciled with the patientDiscontinued metroNIDAZOLE 0.75 % Cream 1 application to affected area Externally Twice a dayDiscontinued Pseudoephedrine HCl 30 MG Tablet 1 tablet as needed Orally every 6 hrsDiscontinued Benadryl 12.5 MG/5ML Elixir Orally Medication List reviewed and reconciled with the patient * Allergies:?Sulfa: rashDemero l: vomitingyes[Allergies Verified] Objective: * Vitals:?Wt: 143 lbs, Ht: 62 in, BMI:26.15 Index, BP: 00/00 mm Hg, Temp: 97.5. * Examination: ???General Examination: ?GENERAL APPEARANCE:?pleasant, well nourished, well developed, in no acute distress.?EYES:?sclera non-icteric.?ORAL CAVITY:?mucosa moist.?NECK/THYROID:?no cervical lymphadenopathy, neck supple.?SKIN:?nonjaundiced, no spider angiomata..?HEART:?S1, S2 normal.?LUNGS:?clear to auscultation bilaterally.?ABDOMEN:?normal bowel sounds, no guarding or rigidity, no hepatosplenomegaly, no masses palpable, soft, nontender, nondistended..?EXTREMITIES:?no edema.?NEUROLOGIC:?alert and oriented.? Assessment: * Assessment: 1.?Gastroesophageal reflux d isease, unspecified whether esophagitis present - K21.9 (Primary)?2.?Personal history of colonic polyps - Z86.010?3.?Abnormal barium swallow - R93.3? Overall, Mónica appears quite w ell. in reviewing her symptomatology with her it does seem that the majority of her discomfort is musculoskeletal in etiology as opposed to anything particularly GI related. However, we did review that gastroesophageal reflux and esophageal spasm can cause pain to radiate to the mid-scapular area in the back. At this point she's not using any acid suppression and seems to be doing well without it. She is not having any worrisome symptoms such as anorexia or dysphagia. Nonetheless, I did recommend she undergo an upper endoscopy for definitive evaluation given the barium swallow report suggestive of at least esophagitis in the distal esophagus. Full consent has been obtained for the endoscopy, including risks of bleeding and perforation. The procedure will be done with monitored anesthesia care. If the upper endoscopy is nonrevealing I would simply observe her and hold off on any further treatment with acid suppression. If we find significant esophagitis and/or Rodriguez's esophagus then I would most likely want to put her back on some acid suppression We did review her colonoscopy from 2020 and I advised her that I don't feel strongly about her needing any further screening colonoscopies, but she would like to consider to have another one in 2025 as a five-year followup. She will be put into the recall system for that. Mónica was comfortable with this plan. Thank you again for allowing me to participate in Mónica's care. I shall continue to keep you advised of her progress. Plan: * Treatment: 2.?Personal history of colonic polyps? Notes: Repeat colonoscopy in 05/2026.??3.?Abnormal barium swallow?Procedure: UPPER GI ENDOSCOPY (Ordered for 06/01/2023)* with MAC Notes: Stop Advil for 1 week before the endoscopy.?? * Procedure Codes:?3017F COLOR ECTAL CA SCREEN DOC [id number] TOBACCO [id number] BP SCR NOT PRFRM REC REASON NOS * Preventive Medicine:? ??Counseling:?Care goal follow-up plan:?Above Normal BMI Follow-up?Giving encouragement to exercise,?BMI management provided?Yes.? ??Urinary Incontinence:?Urinary Incontinence?Assessment:?Absent,?Plan of care documented:?No, reason not specified.? * Follow Up:?prn * * Sign off status: Completed true * Provider:?Jason Mcnamara MD Date:? 023 Generated for Alin aleman/Elias/Evelinesmitting on:?10/23/2024 08:34 AM EST History and Physical Notes * HPI (History of Present Illness) Category Sub-Category Detail Notes Category Not es incontinence I saw Mónica in followup today in regard to her abnormal barium swallow and her symptoms of gastroesophageal reflux. I last saw Mónica in May of 2021, at which time she underwent a negative followup screening colonoscopy. She developed the onset of predominantly mid- scapular back pain earlier this year. She described that it was radiating anteriorly into her chest as well. However the majority of the pain was in her back. She never had any associated dysphagia, vomiting, anorexia, nor abdominal pain. Based on her symptomatology she had a workup with a barium swallow describing reflux and some questionable distal esophagitis. An abdominal ultrasound was negative for gallstones. She was treated with a course of pantoprazole which gave her some mild, if any, relief. She has subsequently been off pantoprazole and has not noticed any worsening of her symptoms. However, she describes that she presently has actually been feeling well other than the mid-scapular pain for which she uses Advil with moderate relief. She does describe a previous CT scan that has shown some degenerative changes in her spine in that area which she thinks is actually causing her symptoms. Her bowel movements have been regular and without any signs of bleeding. She denies any jaundice nor unintentional weight loss. Examination Category Sub-Category Detail Notes Category Not es General Examination GENERAL APPEARANCE: pleasant , well [...]
--- OUTSIDE RECORDS SUMMARY | 2024-10-23 08:35 | XMS_ITS | Patient Health Record ---
Author Organization [facility] Address [address] [place] [address] Care Team Providers Care Sales Analyst Name Role Phone Michelle Peace MD Primary Care Provider Jason Brennan Unavailable [phone] Allergies Allergen (clinical drug ingredient) Drug/Non Drug Allergy documented on EMR Reaction Allergy Type Onset Date Status Sulfa rash Drug Allergy Active meperidine Demerol vomiting Drug Allergy Active Reason For Referral No Information Medications Medication SIG (Take, Route, Frequency, Duration) Notes Start Date End Date Status Debrox 6.5 % 5 drops into affecte d ear Otic as directed /monthy Active Saline Nasal [place] 0.65 % as directed Nasally Active Refresh [...] as needed Orally Once a day/prn Active Immunizations Vaccine Route Administration Date Status Comme nts Influenza Unknown 04/21/2020 Administered Social History Alcohol Screen Question Answer Notes [...] Notes: Nonsmoker; no significant al cohol use. Nonsmoker; no significant al cohol use. Nonsmoker; no significant al cohol use. Problems Problem Type SNOMED Code ICD Code Onset Dates Problem Status W/U Status Risk Notes Problem History of polyp of colon (situation) (741912639) Personal history of colonic polyps (Z86.010) Active confirmed Problem Gastroesophageal reflux disease (733811868) Gastroesophageal reflux disease (K21.9) Active confirmed Problem Benign neoplasm of stomach (53355822) Gastric polyps (K31.7) Active confirmed Problem 567895925 Abnormal barium swallow (R93.3) Active confirmed Problem 91875323 Esophageal dysphagia (R13.10) Active confirmed Problem Diverticulosis of colon (902230553) Diverticulosis of colon (K57.30) Active confirmed Problem 655337131 Gastroesophageal reflux disease, unspecified whether esophagitis present (K21.9) Active confirmed Plan Of Treatment Pending Test Test Name Order Date XR BARIUM SWALLOW-ESOPHAGUS 11/26/2020 Pathology 06/14/2023 Future Test Test Name Order Date COLONOSCOPY 02/03/2015 UPPER GI ENDOSCOPY 03/21/2023 UPPER GI ENDOSCOPY 06/01/2023 Insurance Providers Payer Name Payer Address Payer Phone Subscriber Number Group Number Insured Name Patient Relationship to Insured Coverage Start Date Coverage End Date MEDICARE OF [place] [address] [facility] [place] [address] [id number] MÓNICA WEBBER Self - patient is the insured [employer] ATT[employer] CLAIMS [address] [place] [address] [id number] MÓNICA WEBBER Self - patient is the insured Medical (General) History Medical History History ICD Code Denies CT,DM,CVA,Lung disease,renal dise ase Cervical cancer as below [...]
== END 2024-10-23 08:15 | disposition home or self-care (01) ==
LOC: HO.HMGCX 08:14
PROVIDERS: PCP Internal Medicine; Visit Provider Obstetrics & Gynecology
DX: N84.0 Polyp of corpus uteri (principal); N83.209 Unspecified ovarian cyst, unspecified side
CPT/HCPCS: 76830; 76856

== ENCOUNTER → 2024-10-23 08:21 | Outpatient (BNV) | payer MEDICARE, SELFPAY | PROVIDERS: PCP Internal Medicine; Visit Provider Radiology Diagnostic Radiology | DX: N83.201 Unspecified ovarian cyst, right side (principal) | CPT/HCPCS: 76830; 76856 ==

== ENCOUNTER 2024-10-29 09:10 | Outpatient (AMB) | payer MEDICARE, SELFPAY ==
--- NOTE | 2024-10-29 09:34 | MHC.PC.OV ---
Vital Signs 10/29/24 09:36 Height 5 ft 1.5 in Weight 135 lb BMI 25.1 BP 142/72 H Blood Pressure Location Lt brachial Position Sitting Respiration 16 Pulse 68 Pulse Source Pulse Oximeter Temp 97.6 F Temp Source Oral Pulse Oximetry (%) 98 Oxygen Delivery Method Room Air Intake Visit Reasons: 6 month follow up Intake Note: Pt is here today for her 6mo. f/u Allergies meperidine [Demerol] Allergy (Unknown, Verified 10/29/24 09:48) Vomiting Sulfa (Sulfonamide Antibiotics) [SULFA (SULFONAMIDE ANTIBIOTICS)] Allergy (Unknown, Verified 10/29/24 09:48) RASH fentanyl Adverse Reaction (Verified 10/29/24 09:48) Vomiting Medication List - Last Reconciled 10/29/24 by Michelle Peace MD calcium citrate-vitamin D3 315 mg-6.25 mcg (250 unit) (Citracal + Vitamin D Maximum) 1 tab PO DAILY cholecalciferol (vitamin D3) 50 mcg PO DAILY metronidazole 0.75% 1 appl topical BEDTIME raloxifene 60 mg PO DAILY Synthroid (levothyroxine) Take 1 tab alternating with 1/2 tablet every other day PO daily; 90 days NS Yuvafem (estradiol) 10 mcg vaginal 2XW NS Tobacco use date assessed: 10/29/24 Fall risk assessment: No Falls in past year Last assessed Fall Risk: 10/29/24 Dental Screening Dental Screen Date: 10/29/24 Did you have a dental visit in the last 12 months?: Yes Did you have a dental problem in the last 6 months where you did not have access to dental care?: No Was dental information given to patient?: Patient has dentist HPI 6 month follow up HPI Details 74-year-old lady with history of osteopenia of multiple sites and acquired hypothyroidism, here today for follow-up. Latest bone density scan done a month ago showed presence of osteopenia in multiple sites, currently on raloxifene 60 mg daily, no history of any fractures . Latest fasting labs done earlier this month showed thyroid levels are within normal limits. [facility] Medical History (Updated 10/29/24 @ 10:01 by Michelle Peace MD) Osteopenia of multiple sites Fluid in endometrial cavity Cervical cancer Gastroesophageal reflux disease with esophagitis Degenerative disc disease at L5-S1 level History of nephrolithiasis Osteopenia of left femoral neck Family history of leukemia Rosacea Acquired hypothyroidism Surgical History History of conization of cervix Hx of colonoscopy Family History Father Prostate cancer Mother Breast cancer Brother Essential thrombocytosis Leukemia Maternal Aunt Lung cancer Social History Household Members: None Housing: House Are you a primary personal care aide to a significant other at home: No Do you presently have visiting nurse or other home services: No Alcohol intake: current Alcohol intake frequency: holidays/special occasions only Patient Tobacco Use Status: Never used Tobacco e-Cigarette/Vaping Use: Never Used Current occupational status: retired Cognitive needs: No Hearing needs: No Vision needs: Yes Questionnaire PHQ-9 Over the last 2 weeks, how often have you been bothered by any of the following problems? 1. Little interest or pleasure in doing things: not at all 2. Feeling down, depressed, or hopeless: not at all 3. Trouble falling or staying asleep, or sleeping too much: not at all 4. Feeling tired or having little energy: not at all 5. Poor appetite or overeating: not at all 6. Feeling bad about yourself - or that you are a failure or have let yourself or your family down: not at all 7. Trouble concentrating on things, such as reading the newspaper or watching television: not at all 8. Moving or speaking so slowly that other people could have noticed. Or the opposite - being so fidgety or restless that you have been moving around a lot more than usual: not at all 9. Thoughts that you would be better off or of hurting yourself in some way: not at all Total score: 0 Depression Screening Interpretation: Negative Depression Screening Done: Yes 15047 - PHQ-9 Billing: Yes Source: Developed by Drs. Jason Mohamud, Freda Hager, Craig Bartholomew and colleagues, with an educational naseem from [employer]. Thrive Questionnaire Date Thrive assessed: 10/22/24 I am a: Patient What is your living situation today?: I have a steady place to live Within the past 12 months, did the food you bought not last and you didn't have the money to get more?: Never true Within the past 12 months, did you worry whether your food would run out before you got money to buy more?: Never true Do you have trouble paying for medicines?: No Do you have trouble getting transportation to medical appointments?: No Do you have trouble paying your heating and electricity bill?: No Do you have trouble taking care of your child, family member or friend?: No Do you have trouble with day-to-day activities such as bathing, preparing meals, shopping, managing finances, etc.?: I choose not to answer this question Are you currently unemployed and looking for a job?: No Are you interested in more education?: No Please select the resources that you would like help with: None Currently or been in a relationship where the following occur: No concerns reported THRIVE Score: 0 AUDIT C Alcohol Use Questionnaire (AUDIT-C) 1. How often do you have a drink containing alcohol?: 2-4 times a month 2. How many drinks containing alcohol do you have on a typical day when you are drinking?: 1 or 2 3. How often do you have six or more drinks on one occasion?: Never Total Score: 2 GOIVANNA-7 AMB Questionnaire GIOVANNA-7 Date GIOVANNA - 7 assessed: 10/30/23 Feeling nervous, anxious, or on edge: 0 = Not at all Not being able to stop or control worryin = Not at all Worrying too much about different things: 0 = Not at all Trouble relaxin = Not at all Being so restless that it is hard to sit still: 0 = Not at all Becoming easily annoyed or irritable: 0 = Not at all Feeling afraid as if something awful might happen: 0 = Not at all Total GIOVANNA-7 score (0-4 normal; 5-9 mild; 10-14 moderate; 15-21 severe): 0 Source: Developed by Drs. Jason Mohamud, Freda Hager, Craig Bartholomew and colleagues, with an educational naseem from [employer]. GIOVANNA-7 Assessment Billing GIOVANNA-7 Assessment Tool: GIOVANNA-7 Assessment 07214 Review of Systems Const Denies fever(s), Denies frequent falls and Denies headache(s) Eyes Denies change in vision and Reports requires corrective lenses ENT Denies dizziness and Denies headache(s) Card Reports no additional complaints Resp Denies cough GI Denies abdominal pain and Denies heartburn Reports no additional complaints Musc Reports no additional complaints Skin/Breast Details: Goes to [facility] Denies breast swelling, Denies breast pain, Denies breast mass and Denies rash Neuro Denies dizziness, Denies frequent falls and Denies headache(s) Psych Reports no additional complaints Endo Reports no additional complaints Delfin/Lymph Denies easy bleeding and Denies easy bruising Aller/Immun Reports no additional complaints Physical exam (Primary Care) Vital Signs: Last Vital Signs Temp 97.6 F 10/29/24 09:36 Pulse 68 10/29/24 09:36 Resp 16 10/29/24 09:36 BP 142/72 H 10/29/24 09:36 Pulse Ox 98 10/29/24 09:36 Oxygen Delivery Method Room Air 10/29/24 09:36 BMI result Body Mass Index 25.1 Tobacco/Smoking Status: Tobacco use Status Tobacco use date assessed 10/29/24 10/29/24 09:39 Patient Tobacco Use Status Never used Tobacco 10/29/24 09:36 e-Cigarette/Vaping Use Never Used 10/29/24 09:36 PHQ-9: PHQ-9 Score PHQ-9: Total score 0 10/29/24 10:06 Depression Screening Interpretation: Negative Thrive Assessment: Date of Thrive Assessment Date Thrive assessed 10/22/24 10/29/24 09:36 Currently or been in a relationship where the following occur: No concerns reported Const Other: oriented x3, no acute distress ambulatory with normal gait Orientation/consciousness: patient oriented x3 [facility] Head: Yes normocephalic Face and sinus: Yes face symmetric Mouth: Normal oral and palatal mucosa present, oropharynx normal and moist mucous membranes Neck Other: Thyroid gland nonpalpable and nontender to palpation Neck: Yes full ROM, Yes no lymphadenopathy and Yes supple Resp Auscultation: clear to auscultation bilaterally Cardio Other: S1-S2 present regular rate and rhythm GI Palpation (GI): Soft to palpation, nontender, no guarding and no masses Auscultation: normal bowel sounds General: Yes no CVA tenderness Back/Spine/Pelvis Back: no CVA tenderness and No back tenderness Skin General skin exam: no rashes or lesions noted Neuro General: patient oriented x3, gait normal, Normal light touch and pain sensation, no focal motor deficits and CN's II-XI intact bilaterally Extrem General: Yes full ROM, Yes no clubbing, cyanosis or edema, Yes no calf tenderness and Yes normal gait Psych Appearance: grossly normal and well kempt Mental Status: mental status grossly normal Speech and movement: Normal speech and movement present Affect: normal affect Attitude: cooperative Coding Level of Care Code Est Pt Level 4 (35393) Complex EM visit Add On G2211 Diagnoses Osteopenia of multiple sites M85.89 Acquired hypothyroidism E03.9 Additional Codes PHQ-9 - 12708 - PHQ-9 Billing: Yes ([id number]) GIOVANNA-7 Assessment Billing - GIOVANNA-7 Assessment Tool: GIOVANNA-7 Assessment 65508 ([id number]) Assessment & Plan Assessment & Plan (1) Osteopenia of multiple sites: Code(s): M85.89 - Other specified disorders of bone density and structure, multiple sites Category: Medical Plan: Has been on raloxifene now for several years. Not much improvement in her bone density as noted on recent test done. Referred to endocrine clinic for further evaluation management (2) Acquired hypothyroidism: Code(s): E03.9 - Hypothyroidism, unspecified Category: Medical Plan: Thyroid levels are within normal limits, continue with Synthroid Orders: Orders Thyroid Stimulating Hormone 10/30/24 E03.9 - Hypothyroidism, unspecified, M85.852 - Other specified disorders of bone density and structure, left thigh, M85.89 - Other specified disorders of bone density and structure, multiple sites Free T4 (Free Thyroxine) 10/30/24 E03.9 - Hypothyroidism, unspecified, M85.852 - Other specified disorders of bone density and structure, left thigh, M85.89 - Other specified disorders of bone density and structure, multiple sites Aspartate Amino Transferase 10/30/24 E03.9 - Hypothyroidism, unspecified, M85.852 - Other specified disorders of bone density and structure, left thigh, M85.89 - Other specified disorders of bone density and structure, multiple sites Alanine Aminotransferase 10/30/24 E03.9 - Hypothyroidism, unspecified, M85.852 - Other specified disorders of bone density and structure, left thigh, M85.89 - Other specified disorders of bone density and structure, multiple sites Vitamin D 25-OH Total 10/30/24 E03.9 - Hypothyroidism, unspecified, M85.852 - Other specified disorders of bone density and structure, left thigh, M85.89 - Other specified disorders of bone density and structure, multiple sites Basic Metabolic Panel Fasting 10/30/24 E03.9 - Hypothyroidism, unspecified, M85.852 - Other specified disorders of bone density and structure, left thigh, M85.89 - Other specified disorders of bone density and structure, multiple sites Lipid Panel 10/30/24 E03.9 - Hypothyroidism, unspecified, M85.852 - Other specified disorders of bone density and structure, left thigh, M85.89 - Other specified disorders of bone density and structure, multiple sites Referrals Endocrinology Referral M85.89 - Other specified disorders of bone density and structure, multiple sites
[2024-10-29 09:36] VITALS: BP 142/72; PULSE 68; RESP 16; TEMP 36.4; O2SAT 98; BMI 25.1
--- OUTSIDE RECORDS SUMMARY | 2024-10-29 10:13 | XMS_ITS ---
Author Organization [facility] Address [address] [place] [address] Care Team Providers Care Cotton Broker Name Role Phone Michelle Peace MD Primary Care Provider Jason Brennan Unavailable [phone] Allergies Allergen (clinical drug ingredient) Drug/Non Drug [...] Otic as directed /monthy Active Saline Nasal [place] 0.65 % as directed Nasally Active Refresh [...] 05/12/2023 Encounters Encounter Location Date Provider Diagnosis [facility] [address] [place] [address] 05/12/2023 Jason Mcnamara Personal history of colonic [...] MÓNICA BARNETT LDOB: [birth year] (73 yo F)Acc No.[id number]:05/12/2023 Progress Notes Patient:?MÓNICA BARNETT Provider:?Jason Mcnamara MD :1950???Age:73 Y???Sex:Female D ate:05/12/2023 Address:[address] [place] [address] [place] , [id number] Pcp:Michelle Peace MD Subjective: * Chief Complaints: [...] past year??Never (0 point),?Points?1,?Interpretation?Negative.?Miscellaneous:?Marital status: . 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 ???Nonsmoker; no significant alcohol use. * Medications:?TakingDebrox 6. 5 % Solution 5 drops into affected ear Otic as directed /monthySaline Nasal [place] 0.65 % Solution as directed Nasally Refresh [...] ear Otic as directed /monthyTaking Saline Nasal [place] 0.65 % Solution as directed Nasally Taking [...] Procedure Codes:?3017F COLOR ECTAL CA SCREEN DOC [id number] TOBACCO [id number]-[id number] BP SCR NOT PRFRM REC REASON NOS * Preventive Medicine:? ??Counseling:?Care goal follow-up plan:?Above Normal BMI Follow-up?Giving encouragement to exercise,?BMI management provided?Yes.? ??Urinary Incontinence:?Urinary Incontinence?Assessment:?Absent,?Plan of care documented:?No, reason not specified.? * Follow Up:?prn * * Sign off status: Completed true * Provider:?Jason Mcnamara MD Date:? 023 Generated for Alin aleman/Elias/Evelinesmitting on:?10/29/2024 10:13 AM EDT History and Physical Notes * HPI (History [...]
--- OUTSIDE RECORDS SUMMARY | 2024-10-29 10:13 | XMS_ITS | Patient Health Record ---
Author Organization [facility] Address [address] [place] [address] Care Team Providers Care Trim Setter Name Role Phone Michelle Peace MD Primary Care Provider Jason Brennan Unavailable [phone] Allergies Allergen (clinical drug ingredient) Drug/Non Drug Allergy documented on EMR Reaction Allergy Type Onset Date Status Sulfa rash Drug Allergy Active meperidine Demerol vomiting Drug Allergy Active Reason For Referral No Information Medications Medication SIG (Take, Route, Frequency, Duration) Notes Start Date End Date Status Debrox 6.5 % 5 drops into affecte d ear Otic as directed /monthy Active Saline Nasal [place] 0.65 % as directed Nasally Active Refresh [...] Problem History of polyp of colon (situation) (848306578) Personal history of colonic polyps (Z86.010) Active confirmed Problem Gastroesophageal reflux disease (594652422) Gastroesophageal reflux disease (K21.9) Active confirmed Problem Benign neoplasm of stomach (19805845) Gastric polyps (K31.7) Active confirmed Problem 647807654 Abnormal barium swallow (R93.3) Active confirmed Problem 05304853 Esophageal dysphagia (R13.10) Active confirmed Problem Diverticulosis of colon (962120607) Diverticulosis of colon (K57.30) Active confirmed Problem 605248473 Gastroesophageal reflux disease, unspecified whether esophagitis present [...] Date MEDICARE OF [place] [address] [facility] [place] [address] [phone] [id number] MÓNICA WEBBER Self - patient is the insured MED[employer] ATTN CLAIMS [address] [place] [address] [id number] MÓNICA WEBBER Self - patient is the insured Medical (General) History Medical History History ICD Code Denies MO,DM,CVA,Lung disease,renal dise ase Cervical cancer as below [...]
--- OUTSIDE RECORDS SUMMARY | 2024-10-29 10:13 | XMS_ITS ---
Author Organization [facility] Address [address] [place] [address] Care Team Providers Care Litigation Examiner Name Role Phone Kobi MIRANDA, Michelle Primary Care Provider Jason Brennan [phone] REASON FOR VISIT colon recall Encounters Encounter Location Date Provider Diagnosis [facility] [address] [place] [address] 05/12/2023 Jason Mcnamara Plan Of Treatment No Information Progress Notes * MÓNICA BARNETT LDOB: [birth year] (73 yo F)Acc No.[id number]:05/12/2023 Patient:?MÓNICA BARNETT :1950???Age:73 Y???Sex:Female Address:[address], [place] [address] * true * Date:? Generated for Alin aleman/Elias/eTransmitting on:?10/29/2024 10:13 AM EDT
--- OUTSIDE RECORDS SUMMARY | 2024-10-29 10:14 | XMS_ITS ---
Author Organization [facility] Address [address] [place] [address] Care Team Providers Care Customer Relations Consultant Name Role Phone Michelle Peace MD Primary Care Provider Jason Brennan Unavailable [phone] REASON FOR VISIT abnormal barium swallow,gastroesophageal reflux disease Problems Problem Type SNOMED Code ICD Code Onset Dates Problem Status W/U Status Risk Notes Problem Benign neoplasm of stomach (85488541) Gastric polyps (K31.7) Active confirmed Problem Gastroesophageal reflux disease (388351217) Gastroesophageal reflux disease (K21.9) Active confirmed Encounters Encounter Location Date Provider Diagnosis [facility] Outpatient [address] [place] [phone] 06/14/2023 Jason Mcnamara Hiatal hernia K44.9 ; [...] MÓNICA BARNETT LDOB: [birth year] (74 yo F)Acc No.[id number]:06/14/2023 EGD/MAC Patient:?MÓNICA BARNETT Ruy Provider:?Jason Mcnamara MD :1950???Age:73 Y???Sex:Female D ate:06/14/2023 Address:[address] [facility] [place] Pcp:Michelle Peace MD Subjective: * Chief Complaints: * ???1. Abnormal barium swallo w,gastroesophageal reflux disease. * Medical History:? Objective: * Vitals:? Assessment: * Assessment: 1.?Hiatal hernia - K44.9 (Pr imary)???2.?Gastric polyps - K31.7???3.?Gastroesophageal reflux disease - K21.9??? Plan: * Treatment: * Procedure Codes:?72140 UPPER GI ENDOSCOPY, BIOPSY * * The named appointment provid er may or may not be the originator of this progress note, and it is not deemed complete until electronically signed by the appointment provider. Sign off status: Pending * Provider:?Jason Mcnamara MD Date:? 023 Generated for Alin aleman/Elias/eTransmitting on:?10/29/2024 10:13 AM EDT
== END 2024-10-29 10:15 | disposition home or self-care (01) ==
LOC: HO.HMCC 09:11
PROVIDERS: PCP Internal Medicine; Visit Provider Internal Medicine
DX: M85.89 Other specified disorders of bone density and structure, multiple sites (principal); E03.9 Hypothyroidism, unspecified

== ENCOUNTER → 2024-10-29 09:10 | Outpatient (BNVA) | payer MEDICARE, SELFPAY | PROVIDERS: PCP Internal Medicine; Visit Provider Internal Medicine | DX: M85.89 Other specified disorders of bone density and structure, multiple sites (principal); E03.9 Hypothyroidism, unspecified | CPT/HCPCS: 96127; 99212 ==

== ENCOUNTER 2024-10-30 09:06 | Outpatient (REF) | payer MEDICARE, SELFPAY ==
--- OUTSIDE RECORDS SUMMARY | 2024-10-30 09:42 | XMS_ITS | Patient Health Record ---
Author Organization [facility] Address [address] [place] [address] Care Team Providers Care Stitch Separator Name Role Phone Michelle Peace MD Primary Care Provider Jason Brennan Unavailable [phone] Allergies Allergen (clinical drug ingredient) Drug/Non Drug Allergy documented on EMR Reaction Allergy Type Onset Date Status Sulfa rash Drug Allergy Active meperidine Demerol vomiting Drug Allergy Active Reason For Referral No Information Medications Medication SIG (Take, Route, Frequency, Duration) Notes Start Date End Date Status Debrox 6.5 % 5 drops into affecte d ear Otic as directed /monthy Active Saline Nasal [place] 0.65 % as directed Nasally Active Refresh [...] Problem History of polyp of colon (situation) (773181697) Personal history of colonic polyps (Z86.010) Active confirmed Problem Gastroesophageal reflux disease (302025607) Gastroesophageal reflux disease (K21.9) Active confirmed Problem Benign neoplasm of stomach (51262003) Gastric polyps (K31.7) Active confirmed Problem 052375787 Abnormal barium swallow (R93.3) Active confirmed Problem 97571557 Esophageal dysphagia (R13.10) Active confirmed Problem Diverticulosis of colon (314234909) Diverticulosis of colon (K57.30) Active confirmed Problem 432557681 Gastroesophageal reflux disease, unspecified whether esophagitis present [...] Date MEDICARE OF [place] [address] [facility] [place] [address] [phone] [id number] MÓNICA WEBBER Self - patient is the insured [employer] ATTN CLAIMS [address] [place] [address] [id number] MÓNICA WEBBER Self - patient is the insured Medical (General) History Medical History History ICD Code Denies [place],DM,CVA,Lung disease,renal dise ase Cervical cancer as below [...]
--- OUTSIDE RECORDS SUMMARY | 2024-10-30 09:42 | XMS_ITS ---
Author Organization [facility] Address [address] [place] [address] Care Team Providers Care Correctional Sergeant Name Role Phone Michelle Peace MD Primary Care Provider Jason Brennan Unavailable [phone] Allergies Allergen (clinical drug ingredient) Drug/Non Drug Allergy documented on EMR Reaction Allergy Type Onset Date Status Sulfa rash Drug Allergy Active Demerol vomiting Drug Allergy Active REASON FOR [...] Otic as directed /monthy Active Saline Nasal [place] 0.65 % as directed Nasally Active Refresh [...] 05/12/2023 Encounters Encounter Location Date Provider Diagnosis [facility] [address] [place] [address] 05/12/2023 Jason Mcnamara Personal history of colonic [...] MÓNICA BARNETT LDOB: [birth year] (73 yo F)Acc No.[id number]:05/12/2023 Progress Notes Patient:?MÓNICA BARNETT Provider:?Jason Mcnamara MD :1950???Age:73 Y???Sex:Female D ate:05/12/2023 Address:[address], [place], [place] Pcp:Michelle Peace MD Subjective: * Chief Complaints: [...] past year??Never (0 point),?Points?1,?Interpretation?Negative.?Miscellaneous:?Marital status: . 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 ???Nonsmoker; no significant alcohol use. * Medications:?TakingDebrox 6. 5 % Solution 5 drops into affected ear Otic as directed /monthySaline Nasal [place] 0.65 % Solution as directed Nasally Refresh [...] ear Otic as directed /monthyTaking Saline Nasal [place] 0.65 % Solution as directed Nasally Taking [...] Procedure Codes:?3017F COLOR ECTAL CA SCREEN DOC [id number] TOBACCO NON-[id number] BP SCR NOT PRFRM REC REASON NOS * Preventive Medicine:? ??Counseling:?Care goal follow-up plan:?Above Normal BMI Follow-up?Giving encouragement to exercise,?BMI management provided?Yes.? ??Urinary Incontinence:?Urinary Incontinence?Assessment:?Absent,?Plan of care documented:?No, reason not specified.? * Follow Up:?prn * * Sign off status: Completed true * Provider:?Jason Mcnamara MD Date:? 023 Generated for Alin aleman/Elias/Leoncioitting on:?10/30/2024 09:42 AM EDT History and Physical Notes * [...]
--- OUTSIDE RECORDS SUMMARY | 2024-10-30 09:43 | XMS_ITS ---
Author Organization [facility] Address [address] [place] [address] Care Team Providers Care J2Ee Java Developer Name Role Phone Kobi MIRANDA, Michelle Primary Care Provider Jason Brennan [phone] REASON FOR VISIT colon recall Encounters Encounter Location Date Provider Diagnosis [facility] [address] [place] [address] 05/12/2023 Jason Mcnamara Plan Of Treatment No Information Progress Notes * MÓNICA BARNETT LDOB: [birth year] (73 yo F)Acc No.[id number]:05/12/2023 Patient:?MÓNICA BARNETT :1950???Age:73 Y???Sex:Female Address:[address], [place] [address] * true * Date:? Generated for Alin aleman/Elias/eTransmitting on:?10/30/2024 09:42 AM EDT
--- OUTSIDE RECORDS SUMMARY | 2024-10-30 09:43 | XMS_ITS ---
Author Organization [facility] Address [address] [place] [address] Care Team Providers Care Pile Driver Operator Name Role Phone Michelle Peace MD Primary Care Provider Jason Brennan Unavailable [phone] REASON FOR VISIT abnormal barium swallow,gastroesophageal reflux disease Problems Problem Type SNOMED Code ICD Code Onset Dates Problem Status W/U Status Risk Notes Problem Benign neoplasm of stomach (72216101) Gastric polyps (K31.7) Active confirmed Problem Gastroesophageal reflux disease (092525101) Gastroesophageal reflux disease (K21.9) Active confirmed Encounters Encounter Location Date Provider Diagnosis [facility] [address] [place] [id number] 06/14/2023 Jason Mcnamara Hiatal hernia K44.9 ; [...] MÓNICA BARNETT LDOB: [birth year] (74 yo F)Acc No.[id number]:06/14/2023 EGD/MAC Patient:?MÓNICA BARNETT Ruy Provider:?Jason Mcnamara MD :1950???Age:73 Y???Sex:Female D ate:06/14/2023 Address[address] [facility] [place] Pcp:Michelle Peace MD Subjective: * Chief Complaints: * ???1. Abnormal barium swallo w,gastroesophageal reflux disease. * Medical History:? Objective: * Vitals:? Assessment: * Assessment: 1.?Hiatal hernia - K44.9 (Pr imary)???2.?Gastric polyps - K31.7???3.?Gastroesophageal reflux disease - K21.9??? Plan: * Treatment: * Procedure Codes:?53039 UPPER GI ENDOSCOPY, BIOPSY * * The named appointment provid er may or may not be the originator of this progress note, and it is not deemed complete until electronically signed by the appointment provider. Sign off status: Pending * Provider:?Jason Mcnamara MD Date:? 023 Generated for Alin aleman/Elias/eTransmitting on:?10/30/2024 09:42 AM EDT
[2024-10-30 11:37] LABS: Alanine Aminotransferase 14 U/L (0-31); Anion Gap 10 (12-20); Aspartate Amino Transferase 20 U/L (5-31); Blood Urea Nitrogen 12 mg/dL (9-16); Calcium 9.1 mg/dL (8.4-10.2); Carbon Dioxide 26 mmol/L (22-29); Chloride 104 mmol/L (96-108); Cholesterol 165 mg/dL (<200); Estimated Glomerular Filt Rate > 60; Glucose Fasting 91 mg/dL (60-99); HDL Cholesterol 79 mg/dL (>40); LDL Cholesterol Calculated 76 mg/dL (<100); Potassium 3.9 mmol/L (3.3-5.1); Sodium 136 mmol/L (135-145); Triglycerides 54 mg/dL (<150)
[2024-10-30 11:54] LABS: Free T4 (Free Thyroxine) 1.04 ng/dL (0.71-1.85); Thyroid Stimulating Hormone 1.69 uIU/mL (0.32-4.0); Vitamin D 25-OH Total 45.9 ng/mL (>30)
== END 2024-10-30 09:07 | disposition home or self-care (01) ==
LOC: HO.HMGCLDS 09:06
PROVIDERS: PCP Internal Medicine; Visit Provider Internal Medicine
DX: M85.89 Other specified disorders of bone density and structure, multiple sites (principal); M85.852 Other specified disorders of bone density and structure, left thigh; E03.9 Hypothyroidism, unspecified
CPT/HCPCS: 36415; 80048; 80061; 82306; 84439; 84443; 84450; 84460

== ENCOUNTER 2024-11-13 08:05 | Outpatient (AMB) | payer MEDICARE, SELFPAY ==
--- NOTE | 2024-11-13 08:14 | A.OFFVIS_ITS ---
Vital Signs 11/13/24 08:23 Height 5 ft 1.5 in Weight 133 lb 6.075 oz BMI 24.8 BP 128/74 Blood Pressure Location Lt brachial Position Sitting Pulse 75 Pulse Source Pulse Oximeter Pulse Oximetry (%) 98 Oxygen Delivery Method Room Air Intake Visit Reasons: disorders of bone density and structure Intake Note: New patient internally referred by PCP for Disorders of DEXA scan, has been on raloxifene now for the past 17 years, now noticing some worsening in bone density in her lumbar spine and left hip on recent bone density scan. No history of fracture. Wellness Program Manager Required: No Accompanied by: Self / Same As Patient Allergies meperidine [Demerol] Allergy (Unknown, Verified 11/13/24 08:24) Vomiting Sulfa (Sulfonamide Antibiotics) [SULFA (SULFONAMIDE ANTIBIOTICS)] Allergy (Unknown, Verified 11/13/24 08:24) RASH fentanyl Adverse Reaction (Verified 11/13/24 08:24) Vomiting Medication List - Last Reconciled 11/13/24 by Jason Purcell MD calcium citrate-vitamin D3 315 mg-6.25 mcg (250 unit) (Citracal + Vitamin D Maximum) 1 tab PO DAILY cholecalciferol (vitamin D3) 50 mcg PO DAILY metronidazole 0.75% 1 appl topical BEDTIME raloxifene 60 mg PO DAILY Synthroid (levothyroxine) Take 1 tab alternating with 1/2 tablet every other day PO daily; 90 days NS Yuvafem (estradiol) 10 mcg vaginal 2XW NS HPI Comments Details: . The patient is a 74-year-old female presenting with concerns regarding low bone mass and osteoporosis management. She has been on raloxifene since 2007 following suspicion of low bone mass and is currently seeking a review of her bone density status. Previous bone density evaluations and their interpretations appear inconsistent to her understanding. Her medical history includes a presumed episode of kidney stones, with no documentation but assessed due to hematuria. The patient remains active without recent fractures. She has a significant family history of breast cancer, with her mother having been diagnosed later in life. First diagnosed in 2007?. Received treatment in the past with Evista , from 2007 to present . Tolerated treatment well without complication. - Roloxifene: Prescribed in 2007, with good tolerance reported, no side effects such as hot flashes or blood clots noted. - Past treatment suspicion of low bone mass potentially with bone density evaluations - No history of pathologic fracture or ONJ. Has several servings of dietary calcium per day in the form of cheese, milk , cottage cheese . Takes Calcium supplement 1200 mg daily in divided doses. Takes 2000 IU of Vitamin D daily. The patient consumes a diet rich in calcium- containing foods, despite not favoring milk. She regularly consumes kale and broccoli daily and includes salmon and tuna in her weekly diet. [place] cheese and cottage cheese are part of her daily intake, contributing to her calcium cons umption. She acknowledges taking Citracal to reach her calcium requirement of 1200 mg if dietary intake falls short. Denies ever using PPI, anticoagulant, antiepileptic or glucocorticoid medication. Not Does weight bearing exercise days per week . The patient reports being physically active, engaging in weight-bearing activity by performing cellar stairs approximately six times per day. Additionally, she participates in stationary biking for 45 minutes daily, underscoring her adherence to exercise beneficial for supporting bone mass. 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 UTD on dental cleanings and sees dentist every 6 months. No planned upcoming dental work or extractions. No tobacco user or heavy ETOH use Mother had breast cancer DXA dated 10/08/24:EXAMINATION: DXA BONE DENSITY AXIAL HISTORY: Estrogen deficiency TECHNIQUE: FNZ Dual energy absorptiometry (DEXA) of the lumbar spine, total left hip, and femoral neck was performed. COMPARISON: Comparison is made with the prior examination dated 08/30/2022. FINDINGS: The bone mineral density of the lumbar spine is 1.137 with a T-score of -0.4, and a Z-score of 1.5. This represents a BMD change of -3.5% compared to the prior exam. This is statistically significant. The bone mineral density of the left total hip is 0.919 with a T-score of -0.7, and a Z-score of 1.1. This represents BMD change of -2.3% compared to the prior exam. This is not statistically significant. The bone mineral density of the left femoral neck is 0.839 with a T-score of -1.4, and a Z-score of 0.6. This represents BMD change of -0.9% compared to the prior exam. FRACTURE RISK: The FRAX index suggests a ten year probability of major osteoporotic fracture of 11.4%, and of hip fracture 2.3%. MM/XR DEXA axial skeleton IMPRESSION: Based on bone mineral density, and according to World Health Organization (WHO) criteria, the diagnosis is consistent with osteopenia. Labs: COUNTS INCLUDE 234 BEDS AT THE [facility] Medical History (Updated 10/29/24 @ 10:01 by Michelle Peace MD) Osteopenia of multiple sites Fluid in endometrial cavity Cervical cancer Gastroesophageal reflux disease with esophagitis Degenerative disc disease at L5-S1 level History of nephrolithiasis Osteopenia of left femoral neck Family history of leukemia Rosacea Acquired hypothyroidism Surgical History History of conization of cervix Hx of colonoscopy Family History Father Prostate cancer Mother Breast cancer Brother Essential thrombocytosis Leukemia Maternal Aunt Lung cancer Social History Household Members: None Housing: House Are you a primary pet care assistant to a significant other at home: No Do you presently have visiting nurse or other home services: No Alcohol intake: current Alcohol intake frequency: holidays/special occasions only Patient Tobacco Use Status: Never used Tobacco e-Cigarette/Vaping Use: Never Used Current occupational status: retired Cognitive needs: No Hearing needs: No Vision needs: Yes Physical Exam There are no Cushingoid features. Absence of blue sclera. Absence of kyphosis. Thyroid gland is of nl size and weighs 15 gms. There are no thyroid nodules palpated. Lungs CTA. Heart S1 S2 Reg R/R Abdominal exam benign. Muscle strength 5/5 . Examination of spine reveals absence of tenderness on palpation Assessment & Plan Assessment & Plan (1) Osteopenia of multiple sites: Code(s): M85.89 - Other specified disorders of bone density and structure, multiple sites Category: Medical Plan: This is a 74-year-old white female with a history of low bone mass currently being treated with raloxifene with stable bone density. Partial secondary workup has been performed Plan is to complete the secondary workup by checking a phosphorous, 24 hour urine for calcium and creatinine, SPEP, urine immunofixation. We will also check urine NTX. Assuming urine NTX is suppressed would continue the raloxifene. If urine NTX is elevated and bone density tends to decline on next DEXA could consider transitioning to bisphosphonate but would continue raloxifene for now. 1. Osteopenia: Osteopenia management continues effectively with raloxifene focusing on spine protection. Current treatment includes adequate dietary calcium and vitamin D supplementation. Additional investigation through a 24- hour urine test for calcium and creatinine was ordered to exclude secondary causes of bone loss. 2. Presumed History of Kidney Stones: Although kidney stones are presumed, emphasis on managing dietary calcium intake appropriately will include monitoring through a planned 24-hour urine calcium study. This will ensure both bone health and minimize risks for stone formation. 3. Family History of Breast Cancer: Continuation of raloxifene provides dual benefits in managing osteopenia and reducing breast cancer risk. Regular follow- ups and screenings will be maintained as part of her preventive healthcare framework. The patient had an opportunity to ask questions regarding treatment plan. I discussed with the patient the current management strategy for osteopenia, highlighting the benefits of continuing raloxifene due to its positive impact on bone density and its breast cancer risk reduction. We explored alternative treatments, weighing their risks and benefits. The conversation included extensive reviews of bone turnover monitoring via urine testing, specifically the role of 24-hour urine calcium and creatinine collections, to rule out secondary contributions, emphasizing her low fracture risk and stable bone density. The dietary focus was reinforced, noting her strong intake of calcium- rich foods, and the potential for adjusting supplements was advised based on dietary intake. Our conversation also reviewed her exercise regimen, confirming its suitability and sufficiency for supporting bone health. The patient expressed understanding and agreement with the plan and scheduled follow-up. The patient expressed understanding and agreement with the above treatment plan. Patient was informed and verbally consented to the use of an ambient scribe for clinic note documentation during this visit. Orders: Orders Phosphorus Today M85.89 - Other specified disorders of bone density and structure, multiple sites Calcium, 24 Hr Ur Today M85.89 - Other specified disorders of bone density and structure, multiple sites Protein Electrophoresis, Serum Today M85.89 - Other specified disorders of bone density and structure, multiple sites Creatinine, 24 Hr Group Today M85.89 - Other specified disorders of bone density and structure, multiple sites Immunofixation, Random Urine Today M85.89 - Other specified disorders of bone density and structure, multiple sites Collagen Crosslinks NTX Today M85.89 - Other specified disorders of bone density and structure, multiple sites Coding Level of Care Code New Pt Level 4 (24817) Diagnoses Osteopenia of multiple sites M85.89
--- OUTSIDE RECORDS SUMMARY | 2024-11-13 08:18 | XMS_ITS | Patient Health Record ---
Author Organization [facility] Address [address] [place] [address] Care Team Providers Care Career Orientation Teacher Name Role Phone Michelle Peace MD Primary Care Provider Jason Brennan Unavailable [phone] Allergies Allergen (clinical drug ingredient) Drug/Non Drug Allergy documented on EMR Reaction Allergy Type Onset Date Status Sulfa rash Drug Allergy Active meperidine Demerol vomiting Drug Allergy Active Reason For Referral No Information Medications Medication SIG (Take, Route, Frequency, Duration) Notes Start Date End Date Status Debrox 6.5 % 5 drops into affecte d ear Otic as directed /monthy Active Saline Nasal [place] 0.65 % as directed Nasally Active Refresh [...] Problem History of polyp of colon (situation) (689447317) Personal history of colonic polyps (Z86.010) Active confirmed Problem Gastroesophageal reflux disease (511356797) Gastroesophageal reflux disease (K21.9) Active confirmed Problem Benign neoplasm of stomach (28914439) Gastric polyps (K31.7) Active confirmed Problem 231401947 Abnormal barium swallow (R93.3) Active confirmed Problem 63343915 Esophageal dysphagia (R13.10) Active confirmed Problem Diverticulosis of colon (229214370) Diverticulosis of colon (K57.30) Active confirmed Problem 676156840 Gastroesophageal reflux disease, unspecified whether esophagitis present [...] Date MEDICARE OF [place] [address] [facility] [place] [address] [id number] MÓNICA WEBBER Self - patient is the insured [employer] ATTN CLAIMS [address] [place] [phone] [id number] MÓINCA WEBBER Self - patient is the insured Medical (General) History Medical History History ICD Code Denies GA,DM,CVA,Lung disease,renal dise ase Cervical cancer as below [...]
--- OUTSIDE RECORDS SUMMARY | 2024-11-13 08:18 | XMS_ITS | Continuity of Care Document ---
Author Organization [facility] Address [address] [place] [address]- Care Team Providers Care Rn Support Services Name Role Phone Deisy MIRANDA, Nelda Redmond Primary Care Physician Unav ailable [id number]s): [facility]/05/[facility] - 11/12/24 [facility] [facility] [address] [place] [address]- Attending Physician: Kassidy Swain DO Referring Physician: Nelda Olivas MD Encounter Type: Office Visit Allergies, Adverse Reactions, Alerts Substance Criticality Severity Reaction Reaction Severity Status Bactrim rash Active Medications Misc Rx Refills 0, Maintenance, Citracal with VitD 12oomg daily, 05/13/24 11:59:00 AM EDT, Supply Start Date: 05/13/24 Status: Ordered Repeat number: 1 raloxifene 60 mg oral tablet 1 tablet = 60 mg, By Mouth, Daily, 0 Refills, Maintenance, 03/19/24 5:28:00 PM EDT, Partial fill upon patient request if the prescription is for a schedule II opioid drug. Start Date: 03/19/24 Status: Ordered Repeat number: 1 Synthroid 0.05 mg oral tablet 1 tablet = 50 mcg, By Mouth, Daily, alternates half tab with full tab every other day, 0 Refills, Maintenance, 03/19/24 5:21:00 PM EDT, Partial fill upon patient request if the prescription is for a schedule II opioid drug. Start Date: 03/19/24 Status: Ordered Repeat number: 1 Vitamin D3 50 mcg (2000 intl units) oral tablet, chewable 1 tablet = 50 mcg, By Mouth, Daily, # 30 each, 0 Refills, Maintenance, 05/13/24 12:00:00 PM EDT, Chew Tablet, Partial fill upon patient request if the prescription is for a schedule II opioid drug. Start Date: 05/13/24 Status: Ordered Quantity: 30.0 Unit: each Repeat number: 1 Yuvafem 10 mcg vaginal tablet See Instructions, 1 tablet Vaginally at bedtime twice a week, 0 Refills, Maintenance, 05/13/24 11:58:00 AM EDT, Partial fill upon patient request if the prescription is for a schedule II opioid drug. Start Date: 05/13/24 Status: Ordered Repeat number: 1 Patient Care team information Care Team Related Persons Name: JENNIFER BARNETT Name: JOSEPH PATTERSON Insurance Providers Guarantor name: MARCIANO Health Plan Information #: 1 Payer: MEDICARE PART B OUTPT Member Number: [id number] Policy Number: MARCIANO Group Number: MARCIANO Health Plan Information #: 2 Payer: MEDEX Member Number: [id number] Policy Number: MARCIANO Group Number: MARCIANO
--- OUTSIDE RECORDS SUMMARY | 2024-11-13 08:19 | XMS_ITS ---
Author Organization [facility] Address [address] [place] [address] Care Team Providers Care Cooler Worker Name Role Phone Michelle Peace MD Primary Care Provider Jason Brennan Unavailable [phone] REASON FOR VISIT abnormal barium swallow,gastroesophageal reflux disease Problems Problem Type SNOMED Code ICD Code Onset Dates Problem Status W/U Status Risk Notes Problem Benign neoplasm of stomach (16707914) Gastric polyps (K31.7) Active confirmed Problem Gastroesophageal reflux disease (880627889) Gastroesophageal reflux disease (K21.9) Active confirmed Encounters Encounter Location Date Provider Diagnosis [facility] [place] [address] [place] [id number] 06/14/2023 Jason Mcnamara Hiatal hernia K44.9 ; [...] MÓNICA BARNETT LDOB: [birth year] (74 yo F)Acc No.[id number]:06/14/2023 EGD/MAC Patient:?MÓNICA BARNETT Ruy Provider:?Jason Mcnamara MD :1950???Age:73 Y???Sex:Female D ate:06/14/2023 Address:[address] [facility] [place] Pcp:Michelle Peace MD Subjective: * Chief Complaints: * ???1. Abnormal barium swallo w,gastroesophageal reflux disease. * Medical History:? Objective: * Vitals:? Assessment: * Assessment: 1.?Hiatal hernia - K44.9 (Pr imary)???2.?Gastric polyps - K31.7???3.?Gastroesophageal reflux disease - K21.9??? Plan: * Treatment: * Procedure Codes:?86195 UPPER GI ENDOSCOPY, BIOPSY * * The named appointment provid er may or may not be the originator of this progress note, and it is not deemed complete until electronically signed by the appointment provider. Sign off status: Pending * Provider:?Jason Mcnamara MD Date:? 023 Generated for Alin aleman/Elias/eTransmitting on:?11/13/2024 08:18 AM EDT
[2024-11-13 08:23] VITALS: BP 128/74; PULSE 75; O2SAT 98; BMI 24.8
== END 2024-11-13 09:25 | disposition home or self-care (01) ==
LOC: HO.ENCR 08:05
PROVIDERS: PCP Internal Medicine; Visit Provider Internal Medicine Endocrinology, Diabetes & Metabolism
DX: M85.89 Other specified disorders of bone density and structure, multiple sites (principal)
CPT/HCPCS: 99204

== ENCOUNTER → 2024-11-13 08:05 | Outpatient (BNVA) | payer MEDICARE, SELFPAY | PROVIDERS: PCP Internal Medicine; Visit Provider Internal Medicine Endocrinology, Diabetes & Metabolism | DX: M85.89 Other specified disorders of bone density and structure, multiple sites (principal) | CPT/HCPCS: 99202 ==

== ENCOUNTER 2024-11-14 08:39 | Outpatient (REF) | payer MEDICARE, SELFPAY ==
[2024-11-20 19:28] LABS: N-Telopeptide 40 (see note); NTXCreaRU 41 mg/dL (20-275)
== END 2024-11-14 08:40 | disposition home or self-care (01) ==
LOC: HO.10HDLNP 08:39
PROVIDERS: Visit Provider Internal Medicine Endocrinology, Diabetes & Metabolism
DX: M85.89 Other specified disorders of bone density and structure, multiple sites (principal)
CPT/HCPCS: 82523; 86335

== ENCOUNTER 2024-11-16 08:51 | Outpatient (REF) | payer MEDICARE, SELFPAY ==
[2024-11-16 12:02] LABS: Phosphorus 3.4 mg/dL (2.7-4.5)
[2024-11-16 12:11] LABS: Creatinine, mg/dL 26.42
[2024-11-16 13:36] LABS: Creatinine, 24Hr Urine 0.8 G/Day (1.0-2.0); Total Volume 24 Hour Urine 3100 mL
[2024-11-18 17:05] LABS: Calcium, 24 Hr Urine 198 mg/24 h; Calcium/Creatinine Ratio 237 mg/g creat (30-275); Creatinine 24Hr Urine 0.84 g/24 h (0.50-2.15)
[2024-11-18 21:38] LABS: Prot Elec - Albumin 3.9 g/dL (3.8-4.8); Prot Elec - Alpha1 0.3 g/dL (0.2-0.3); Prot Elec - Alpha2 0.5 g/dL (0.5-0.9); Prot Elec - Beta 1 0.5 g/dL (0.4-0.6); Prot Elec - Beta 2 0.3 g/dL (0.2-0.5); Prot Elec - Gamma 0.8 g/dL (0.8-1.7); Prot Elec - Total Protein 6.2 g/dL (6.1-8.1)
== END 2024-11-16 08:52 | disposition home or self-care (01) ==
LOC: HO.HMGCLDS 08:51
PROVIDERS: PCP Internal Medicine; Visit Provider Internal Medicine Endocrinology, Diabetes & Metabolism
DX: M85.89 Other specified disorders of bone density and structure, multiple sites (principal)
CPT/HCPCS: 36415; 82340; 82570; 84100; 84165

== ENCOUNTER 2025-01-24 09:50 | Outpatient (AMB) | payer MEDICARE, SELFPAY ==
--- NOTE | 2025-01-24 10:06 | MHC.OFFWIV ---
Intake Vital Signs 01/24/25 10:08 Height 5 ft 1.5 in Weight 131 lb BMI 24.3 BP 130/70 Blood Pressure Location Lt brachial Position Sitting Respiration 16 Pulse 72 Pulse Source Pulse Oximeter Temp 97.6 F Temp Source Oral Pulse Oximetry (%) 97 Oxygen Delivery Method Room Air Intake Visit Reasons: EP Upper back pain Intake Note: Pt is here today c/o upper and mid back pain Patient Tobacco Use Status: Never used Tobacco Allergies meperidine [Demerol] Allergy (Unknown, Verified 01/24/25 10:11) Vomiting Sulfa (Sulfonamide Antibiotics) [SULFA (SULFONAMIDE ANTIBIOTICS)] Allergy (Unknown, Verified 01/24/25 10:11) RASH fentanyl Adverse Reaction (Verified 01/24/25 10:11) Vomiting HPI HPI Comments History of Present Illness Details Patient preents to office with back pain Chronic degenerative disc disease Ongoing worsening x 2 months She said in the spring she did a lot of home tasks such as lifting heavy bird seed back etc and pain has been worse since then She has been messaging her PCP Kobi through portal She ordered PT referral but only has been treating lower back chronic pain (has had three visits) She said some aching into R lower back No loss or urine or bowel incontinence Has not had back imaging since 2013 She said she is not looking for medication; has been taking chronically advil once daily Also extra strength tylenol prn Pain level currently is 8/10 No CP or SOB. No cough No urine symptoms or bowel complaints [facility] Medical History (Updated 01/24/25 @ 10:33 by Joy De La Cruz PA-C) Lumbago Osteopenia of multiple sites Fluid in endometrial cavity Cervical cancer Gastroesophageal reflux disease with esophagitis Degenerative disc disease at L5-S1 level History of nephrolithiasis Osteopenia of left femoral neck Family history of leukemia Rosacea Acquired hypothyroidism Surgical History History of conization of cervix Hx of colonoscopy Family History Father Prostate cancer Mother Breast cancer Brother Essential thrombocytosis Leukemia Maternal Aunt Lung cancer Social History Household Members: None Housing: House Are you a primary childcare worker to a significant other at home: No Do you presently have visiting nurse or other home services: No Alcohol intake: current Alcohol intake frequency: holidays/special occasions only Patient Tobacco Use Status: Never used Tobacco e-Cigarette/Vaping Use: Never Used Current occupational status: retired Cognitive needs: No Hearing needs: No Vision needs: Yes Review of Systems Const Denies chills and Denies fever(s) ENT Denies dizziness Card Denies chest pain and Denies dyspnea Resp Denies cough and Denies dyspnea GI Denies abdominal pain, Denies diarrhea, Denies vomiting and Reports other (denies incontinence) Denies hematuria, Denies difficulty voiding and Denies urinary incontinence Musc Reports back pain, Denies numbness, Reports radiating pain into limb (sometimes R lower back into R leg) and Denies tingling Skin/Breast Denies erythema and Denies rash Neuro Denies dizziness, Denies numbness and Denies tingling Physical Exam Vital Signs: Last Vital Signs Temp 97.6 F 01/24/25 10:08 Pulse 72 01/24/25 10:08 Resp 16 01/24/25 10:08 BP 130/70 01/24/25 10:08 Pulse Ox 97 01/24/25 10:08 Oxygen Delivery Method Room Air 01/24/25 10:08 BMI result Body Mass Index 24.3 General: Non-toxic, NAD. Speaking full sentences. Skin: Warm dry throughout. No posterior back or flank ecchymosis, rash or vesicular lesions. Legs symmetrical in size and shape bilaterally Eye: PERRL, EOMI Respiratory: CTA bilaterally. No wheezes, rales or rhonchi Cardiac: RRR. No murmur Abdominal: BS present. Non-tender throughout. No palpable masses. No abdominal distention or pusatile mass. MSK: No midline tenderness. + ttp bilateral thoracic and lumbar paravertebral muscles. Negative SLR bilaterally. 5/5 strength with extension at knees against resistance. 5/5 strenth against resistance with great toe dorsal flexion. Neurology: Alert. No aphasia or facial droop. Equal strength. Gait without abnormality Psych: Good mood and affect Assessment & Plan Assessment & Plan (1) Back pain: Code(s): M54.9 - Dorsalgia, unspecified Qualifiers: Back pain laterality: bilateral Back pain location: thoracic back pain Chronicity: chronic Qualified Code(s): M54.6 - Pain in thoracic spine; G89.29 - Other chronic pain Plan: Patient seen and evaluated. Xray throacic: I viewed chronic changes Xray lumbar: I viewed chronic changes PT referral given for thoracic back pain Discussed SalonPas usage OTC and she will try F/U with PCP Patient gave verbal understanding and had no additional questions or concerns at time of discharge All questions answered Orders: Orders PT Evaluation and Treatment Today M54.6 - Pain in thoracic spine XR thoracic spine 2V Today M54.9 - Dorsalgia, unspecified XR lumbar spine 2-3V Today M54.9 - Dorsalgia, unspecified Coding Level of Care Code Est Pt Level 3 (16657) Diagnoses Chronic bilateral thoracic back pain M54.6; G89.29 Back pain laterality: bilateral Back pain location: thoracic back pain Chronicity: chronic
[2025-01-24 10:08] VITALS: BP 130/70; PULSE 72; RESP 16; TEMP 36.4; O2SAT 97; BMI 24.3
--- OUTSIDE RECORDS SUMMARY | 2025-01-24 10:32 | XMS_ITS | Patient Health Record ---
Author Organization [facility] Address [address] [place] [address] Care Team Providers Care Traffic Incident Management Manager Name Role Phone Michelle Peace MD Primary Care Provider Jason Brennan Unavailable [phone] Allergies Allergen (clinical drug ingredient) Drug/Non Drug Allergy documented on EMR Reaction Allergy Type Onset Date Status Sulfa rash Drug Allergy Active meperidine Demerol vomiting Drug Allergy Active Reason For Referral No Information Medications Medication SIG (Take, Route, Frequency, Duration) Notes Start Date End Date Status Debrox 6.5 % 5 drops into affecte d ear Otic as directed /monthy Active Saline Nasal [place] 0.65 % as directed Nasally Active Refresh [...] Problem History of polyp of colon (situation) (489345194) Personal history of colonic polyps (Z86.010) Active confirmed Problem Gastroesophageal reflux disease (141567221) Gastroesophageal reflux disease (K21.9) Active confirmed Problem Benign neoplasm of stomach (08657925) Gastric polyps (K31.7) Active confirmed Problem 935739071 Abnormal barium swallow (R93.3) Active confirmed Problem 05754684 Esophageal dysphagia (R13.10) Active confirmed Problem Diverticulosis of colon (161577034) Diverticulosis of colon (K57.30) Active confirmed Problem 159658567 Gastroesophageal reflux disease, unspecified whether esophagitis present [...] Date MEDICARE OF [place] [address] [facility] [place] [address] [id number] MÓNICA WEBBER Self - patient is the insured [employer] ATT[employer] CLAIMS [address] [place] [address] [id number] MÓNICA WEBBER Self - patient is the insured Medical (General) History Medical History History ICD Code Denies [place],DM,CVA,Lung disease,renal dise ase Cervical cancer as below [...]
== END 2025-01-24 10:52 | disposition home or self-care (01) ==
PROVIDERS: PCP Internal Medicine; Visit Provider Physician Assistant
DX: M54.6 Pain in thoracic spine (principal); G89.29 Other chronic pain

== ENCOUNTER 2025-01-24 09:50 | Outpatient (REF) | payer MEDICARE, SELFPAY ==
--- NOTE | ~2025-01-24 | XR_ITS ---
EXAMINATION: XR LUMBOSACRAL SPINE CLINICAL INFORMATION: M54.9 - Dorsalgia, unspecified COMPARISON: CT abdomen and pelvis September 28, 2018 TECHNIQUE: AP and lateral and lateral spot views of the lumbosacral spine. FINDINGS: There is 17 degrees convex left curvature of the lumbar spine. On the prior CT, there was no scoliosis of the lumbar spine. There are 5 nonrib-bearing lumbar segments. L1-2: There is grade 1 retrolisthesis, endplate sclerosis, and osteophytes. L2-3: There is moderate disc space narrowing and grade 1 retrolisthesis. L3-4: There is subtle retrolisthesis and small posterior osteophyte. There is mild facet sclerosis. L4-5: There is grade 1 anterolisthesis, facet sclerosis, and osteophytes. L5-S1: There is moderate to severe disc space narrowing and grade 1 anterolisthesis with advanced facet sclerosis and osteophytes. XR/XR lumbar spine 2-3V IMPRESSION: Moderate levoscoliosis of the lumbar spine has developed since the CT September 28, 2018 Moderate multilevel degenerative disc disease and facet arthropathy has increased since the prior. Electronically signed by: Ari Hare MD 01/24/2025 11:15 AM EDT
--- NOTE | ~2025-01-24 | XR_ITS ---
EXAMINATION: XR THORACIC SPINE CLINICAL INFORMATION: M54.9 - Dorsalgia, unspecified COMPARISON: None available. TECHNIQUE: 3 views of the thoracic spine were obtained. FINDINGS: Oval densities in the left abdomen probably represent swallowed pills. There is S-shaped scoliosis convex right in the mid to lower thoracic spine measuring 14 degrees and convex left 17 degrees in the thoracic spine. Moderate facet joint space narrowing, sclerosis, and osteophytes are present in the cervical spine. Cervicothoracic junction is moderately obscured by overlapping soft tissues and bony structures. There is grade 1 anterolisthesis in the upper thoracic spine, approximately T3-4 and T4-5. There is mild to moderate disc space narrowing in the thoracic spine. XR/XR thoracic spine 2V IMPRESSION: Mild S-shaped scoliosis. Mild to moderate degenerative disc disease in the thoracic spine and moderate facet arthropathy is visualized cervical spine. Electronically signed by: Ari Hare MD 01/24/2025 11:06 AM EDT
== END 2025-01-24 09:51 | disposition home or self-care (01) ==
LOC: HO.HMGCX 09:50
PROVIDERS: PCP Internal Medicine; Visit Provider Physician Assistant
DX: M54.6 Pain in thoracic spine (principal); G89.29 Other chronic pain
CPT/HCPCS: 72070; 72100; 99212

== ENCOUNTER → 2025-01-24 10:34 | Outpatient (BNV) | payer MEDICARE, SELFPAY | PROVIDERS: PCP Internal Medicine; Visit Provider Radiology Diagnostic Radiology | DX: M51.360 Other intervertebral disc degeneration, lumbar region with discogenic back pain only (principal); M43.14 Spondylolisthesis, thoracic region | CPT/HCPCS: 72070; 72100 ==

== ENCOUNTER 2025-02-03 10:57 | Outpatient (AMB) | payer MEDICARE, SELFPAY ==
[2025-02-03 11:03] VITALS: BP 112/66; PULSE 66; TEMP 36.4; O2SAT 98; BMI 24.7
--- NOTE | 2025-02-03 11:03 | MHC.OFFWIV ---
Intake Vital Signs 02/03/25 11:03 Height 5 ft 1.5 in Weight 133 lb BMI 24.7 BP 112/66 Blood Pressure Location Lt brachial Position Sitting Pulse 66 Pulse Source Pulse Oximeter Temp 97.6 F Temp Source Oral Pulse Oximetry (%) 98 Oxygen Delivery Method Room Air Intake Visit Reasons: EP RT hip pain Intake Note: Pt presents to the office today for c/o right hip pain. Pt states she was seen about a week ago for the same concerns. Pt states she had an xray done of her thoracic/lumbar spine but states her hip is really bothering her. Pt denies any injury to her hip. Patient Tobacco Use Status: Never used Tobacco Allergies meperidine [Demerol] Allergy (Unknown, Verified 02/03/25 11:07) Vomiting Sulfa (Sulfonamide Antibiotics) [SULFA (SULFONAMIDE ANTIBIOTICS)] Allergy (Unknown, Verified 02/03/25 11:07) RASH fentanyl Adverse Reaction (Verified 02/03/25 11:07) Vomiting Medication List - Last Reconciled 02/03/25 by Zandra Ratliff NP calcium citrate-vitamin D3 315 mg-6.25 mcg (250 unit) (Citracal + Vitamin D Maximum) 1 tab PO DAILY cholecalciferol (vitamin D3) 50 mcg PO DAILY raloxifene 60 mg PO DAILY Synthroid (levothyroxine) Take 1 tab alternating with 1/2 tablet every other day PO daily; 90 days NS Yuvafem (estradiol) 10 mcg vaginal 2XW NS HPI HPI Comments History of Present Illness Details 74 y/o Female patient who presents to the walk in clinic with c/o Right hip pain on/off for a week now. Reports pain with ROM, standing or walking. She does have chronic thoracic and lower back pain due to Arthritis. She is currently receiving Physical therapy for back - wondering if she get referred for hip PT. [facility] Medical History (Updated 02/03/25 @ 11:57 by Zanrda Ratliff NP) Right hip pain Lumbago Osteopenia of multiple sites Fluid in endometrial cavity Cervical cancer Gastroesophageal reflux disease with esophagitis Degenerative disc disease at L5-S1 level History of nephrolithiasis Osteopenia of left femoral neck Family history of leukemia Rosacea Acquired hypothyroidism Surgical History History of conization of cervix Hx of colonoscopy Family History Father Prostate cancer Mother Breast cancer Brother Essential thrombocytosis Leukemia Maternal Aunt Lung cancer Social History Household Members: None Housing: House Are you a primary healthcare consulting manager to a significant other at home: No Do you presently have visiting nurse or other home services: No Alcohol intake: current Alcohol intake frequency: holidays/special occasions only Patient Tobacco Use Status: Never used Tobacco e-Cigarette/Vaping Use: Never Used Current occupational status: retired Cognitive needs: No Hearing needs: No Vision needs: Yes Review of Systems Const All systems reviewed & are unremarkable except as noted in HPI and below Physical Exam Vital Signs: Last Vital Signs Temp 97.6 F 02/03/25 11:03 Pulse 66 02/03/25 11:03 BP 112/66 02/03/25 11:03 Pulse Ox 98 02/03/25 11:03 Oxygen Delivery Method Room Air 02/03/25 11:03 BMI result Body Mass Index 24.7 Const General: no acute distress Nutritional Appearance: overweight Orientation/consciousness: patient oriented x3 Neuro General: patient oriented x3, gait normal and moves all extremities Extrem Right lower extremity: hip/thigh Details: normal to inspection, tenderness Location: of the hip Location: laterally and over the greater trochanter and normal ROM (With some pain); no swelling Psych Speech and movement: Normal speech and movement present Assessment & Plan Assessment & Plan (1) Right hip pain: Code(s): M25.551 - Pain in right hip Plan: Ordered Physical Therapy Ordered Meloxicam Continue with Acetaminophen (2) Degenerative disc disease at L5-S1 level: Code(s): M51.37 - Other intervertebral disc degeneration, lumbosacral region Plan: Continue with Physical Therapy. Orders: Orders PT Evaluation and Treatment Today M25.551 - Pain in right hip Medications: New acetaminophen 1,000 mg (2 x 500 mg) PO Q6H PRN 30 caps 0RF pain M25.551 - Pain in right hip, M51.37 - Other intervertebral disc degeneration, lumbosacral region meloxicam 15 mg PO DAILY 14 days 14 tabs 0RF M25.551 - Pain in right hip, M51.37 - Other intervertebral disc degeneration, lumbosacral region Discontinued metronidazole 0.75% Discontinued Reason: Patient Completed Course 1 appl topical BEDTIME 45 grams 0RF L71.9 - Rosacea, unspecified Coding Level of Care Code Est Pt Level 4 (89476) Diagnoses Right hip pain M25.551 Degenerative disc disease at L5-S1 level M51.37 Time Spent (min) 20
--- OUTSIDE RECORDS SUMMARY | 2025-02-03 12:26 | XMS_ITS | Patient Health Record ---
Author Organization [facility] Address [address] [place] [address] Care Team Providers Care Director Dietetics Department Name Role Phone Michelle Peace MD Primary Care Provider Jason Brennan Unavailable [phone] Allergies Allergen (clinical drug ingredient) Drug/Non Drug Allergy documented on EMR Reaction Allergy Type Onset Date Status Sulfa rash Drug Allergy Active meperidine Demerol vomiting Drug Allergy Active Reason For Referral No Information Medications Medication SIG (Take, Route, Frequency, Duration) Notes Start Date End Date Status Debrox 6.5 % 5 drops into affecte d ear Otic as directed /monthy Active Saline Nasal [place] 0.65 % as directed Nasally Active Refresh [...] Problem History of polyp of colon (situation) (960977347) Personal history of colonic polyps (Z86.010) Active confirmed Problem Gastroesophageal reflux disease (226040986) Gastroesophageal reflux disease (K21.9) Active confirmed Problem Benign neoplasm of stomach (79771755) Gastric polyps (K31.7) Active confirmed Problem 184982189 Abnormal barium swallow (R93.3) Active confirmed Problem 62303191 Esophageal dysphagia (R13.10) Active confirmed Problem Diverticulosis of colon (414821489) Diverticulosis of colon (K57.30) Active confirmed Problem 729243371 Gastroesophageal reflux disease, unspecified whether esophagitis present [...] Date MEDICARE OF [place] [address] [facility][1] [place] [address] [id number] MÓNICA WEBBER Self - patient is the insured [employer] ATT[employer] CLAIMS [address] [place] [address] [id number] MÓNICA WEBBER Self - patient is the insured Medical (General) History Medical History History ICD Code Denies [place],DM,CVA,Lung disease,renal dise ase Cervical cancer as below [...]
== END 2025-02-03 12:00 | disposition home or self-care (01) ==
PROVIDERS: PCP Internal Medicine; Visit Provider Nurse Practitioner Family
DX: M25.551 Pain in right hip (principal); M51.371 Other intervertebral disc degeneration, lumbosacral region with lower extremity pain only

== ENCOUNTER → 2025-02-03 10:57 | Outpatient (BNVA) | payer MEDICARE, SELFPAY | PROVIDERS: PCP Internal Medicine; Visit Provider Nurse Practitioner Family | DX: M25.551 Pain in right hip (principal); M51.379 Other intervertebral disc degeneration, lumbosacral region without mention of lumbar back pain or lower extremity pain | CPT/HCPCS: 99212 ==

== ENCOUNTER 2025-02-07 13:59 | Outpatient (REF) | payer MEDICARE, SELFPAY ==
--- NOTE | ~2025-02-07 | XR_ITS ---
CLINICAL HISTORY: M25.551 - Pain in right hip 4 view, bilateral hips Comparison: None provided Findings: No acute fracture or dislocation. Parasymphyseal sclerotic changes may be due to osteitis pubis. There is mild narrowing of the bilateral hip joints. The soft tissues are unremarkable. IMPRESSION: 1. No acute fracture or dislocation. 2. Mild arthritic changes. This document has been electronically signed by: Dorothea Blevins DO on 02/07/2025 18:16:07
--- OUTSIDE RECORDS SUMMARY | 2025-02-07 14:02 | XMS_ITS | Patient Health Record ---
Author Organization [facility] Address [address] [place] [address] Care Team Providers Care Naval Aircrewman Operator Name Role Phone Michelle Peace MD Primary Care Provider Jason Brennan Unavailable [phone] Allergies Allergen (clinical drug ingredient) Drug/Non Drug Allergy documented on EMR Reaction Allergy Type Onset Date Status Sulfa rash Drug Allergy Active meperidine Demerol vomiting Drug Allergy Active Reason For Referral No Information Medications Medication SIG (Take, Route, Frequency, Duration) Notes Start Date End Date Status Debrox 6.5 % 5 drops into affecte d ear Otic as directed /monthy Active Saline Nasal [place] 0.65 % as directed Nasally Active Refresh [...] Problem History of polyp of colon (situation) (251135190) Personal history of colonic polyps (Z86.010) Active confirmed Problem Gastroesophageal reflux disease (632449314) Gastroesophageal reflux disease (K21.9) Active confirmed Problem Benign neoplasm of stomach (59178558) Gastric polyps (K31.7) Active confirmed Problem 388368903 Abnormal barium swallow (R93.3) Active confirmed Problem 96597716 Esophageal dysphagia (R13.10) Active confirmed Problem Diverticulosis of colon (344542741) Diverticulosis of colon (K57.30) Active confirmed Problem 430936494 Gastroesophageal reflux disease, unspecified whether esophagitis present [...] Date MEDICARE OF [place] [address] [facility] [place] [address] [id number] MÓNICA WEBBER Self - patient is the insured [employer] ATT[employer] CLAIMS [address] [place] [address] [id number] MÓNICA WEBBER Self - patient is the insured Medical (General) History Medical History History ICD Code Denies [place],DM,CVA,Lung disease,renal dise ase Cervical cancer as below [...]
== END 2025-02-07 14:00 | disposition home or self-care (01) ==
LOC: HO.HMGCX 13:59
PROVIDERS: PCP Internal Medicine; Visit Provider Internal Medicine
DX: M25.551 Pain in right hip (principal); M25.552 Pain in left hip
CPT/HCPCS: 73522

== ENCOUNTER → 2025-02-07 14:04 | Outpatient (BNV) | payer MEDICARE, SELFPAY | PROVIDERS: PCP Internal Medicine; Visit Provider Radiology Diagnostic Radiology | DX: M16.0 Bilateral primary osteoarthritis of hip (principal) | CPT/HCPCS: 73522 ==

== ENCOUNTER 2025-02-26 13:00 | Outpatient (RCR) | payer MEDICARE, SELFPAY ==
--- NOTE | 2025-01-10 11:25 | MHC.PT.EP ---
[facility] [place] Office [place] Office [place] Office [address] Aisha Franco [address] [phone] F: [phone] F: [phone] F: [phone] F: [phone] Physical Therapy Plan of Care Date of Evaluation: 01/10/25 Date of Surgery: n/a Diagnosis: low back pain Assessment: Patient is a 74 year old female presenting to PT with complaints of pain in her low back. Pt reports onset of pain began about 2 months ago due to lifting heavy things around the house. She presents today with impairments in pain, lumbar ROM, hip strength, core strength, intermittent tingling. 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 Pt expresses manager long term care goal of reducing pain, and is motivated to work towards this in PT. Clinical presentation today is most consistent with signs and sx associated with low back pain and pt will benefit from skilled PT 2 week x 4 weeks to address the following problems and impairments noted upon evaluation: pain, lumbar ROM, hip strength, core strength, intermittent tingling. These problems limit the patient with the following functional activities: work, ADLs, ambulating, sitting, household activities. The prescribed treatment plan of care is medically necessary. Co-morbidities of osteopenia, hx cervical cancer were identified and taken into considerations of plan of care. Pt was educated on HEP, role of PT, prognosis, POC. Frequency and Duration: The patient will be seen 2 x week x 4 weeks Short Term Goals: Pt will demonstrate centralization of sx in 2 weeks. Pt will demonstrate improved hip MMT strength by 1/3 grade in 2 weeks. Pt will demonstrate ability to perform PPT with good core control in 2 weeks. Restaurant Shift Leader Goals: Pt will demonstrate improved Jose score by 10% in 4 weeks for improved functional mobility. Pt will demonstrate ability to ambulate community distances with min to no pain in 4 weeks for improved access to the community. Pt will demonstrate ability to complete estate conservator with min to no pain in 4 weeks for return to PLOF. Treatment Plan: Modalities to reduce pain, spasms and effusion. Manual therapy to restore motion and function. Therapeutic exercise to improve strength and flexibility. Neuromuscular re-education for posture and balance. Therapeutic activities to return to functional activities of daily living. Electronically signed by: Jojo Haskins PT, DPT, ATC Please sign and return to therapist. Thank you for your referral.
--- NOTE | 2025-02-26 13:42 | MHC.PT.DC ---
[facility] [place] Office [place] Office [place] Office [address] [phone] F: [phone] F: [phone] F: [phone] F: [phone] Physical Therapy Discharge Report Diagnosis: low back pain Date of Surgery: n/a Date of Evaluation: 01/10/25 Date of Discharge: 02/26/25 Treatments to Date: 8 Cancellations to Date: 0 No Shows to Date: 0 Discharge Status: Recommend MD Follow-up Discharge Summary: 02/26/2025: Pt has essentially made no progress since start of care. She gets no relief from the exercises. She states she has been compliant with her program at home. At this time there is nothing more we can provide for her in PT. She has not made progress so it is not indicated to continue. I recommend she follows up with her doctor for possibility of more imaging and management of pain. She is in agreement with d/c. Electronically signed by: Jojo Haskins, PT, DPT, ATC Please sign and return to therapist. Thank you for your referral.
== END 2025-02-26 13:42 | disposition home or self-care (01) ==
LOC: HO.PTCHIC 13:00
PROVIDERS: PCP Internal Medicine; Visit Provider Internal Medicine
DX: M51.370 Other intervertebral disc degeneration, lumbosacral region with discogenic back pain only (principal)
CPT/HCPCS: 97110; 97161

== ENCOUNTER 2025-03-03 11:38 | Outpatient (AMB) | payer MEDICARE, SELFPAY ==
[2025-03-03 12:09] VITALS: BP 134/76; PULSE 65; RESP 16; TEMP 36.6; O2SAT 98; BMI 24.3
--- NOTE | 2025-03-03 12:09 | A.OFFPC_ITS ---
Vital Signs 03/03/25 12:09 Height 5 ft 1.5 in Weight 131 lb BMI 24.3 BP 134/76 Blood Pressure Location Lt brachial Position Sitting Respiration 16 Pulse 65 Pulse Source Pulse Oximeter Temp 97.8 F Temp Source Oral Pulse Oximetry (%) 98 Oxygen Delivery Method Room Air Intake Visit Reasons: per PT, pt back is not getting better Intake Note: Pt is here today c/o Rt hip pain x3mo. no injury noted Allergies meperidine (Demerol) Allergy (Unknown, Verified 03/03/25 12:22) Vomiting Sulfa (Sulfonamide Antibiotics) (SULFA (SULFONAMIDE ANTIBIOTICS)) Allergy (Unknown, Verified 03/03/25 12:22) RASH fentanyl Adverse Reaction (Verified 03/03/25 12:22) Vomiting Medication List - Last Reconciled 03/03/25 by Michelle Peace MD acetaminophen 1,000 mg (2 x 500 mg) PO Q6H PRN calcium citrate-vitamin D3 315 mg-6.25 mcg (250 unit) (Citracal + Vitamin D Maximum) 1 tab PO DAILY cholecalciferol (vitamin D3) 50 mcg PO DAILY raloxifene 60 mg PO DAILY Synthroid (levothyroxine) Take 1 tab alternating with 1/2 tablet every other day PO daily; 90 days NS Yuvafem (estradiol) 10 mcg vaginal 2XW NS Tobacco use date assessed: 03/03/25 Last assessed Fall Risk: 03/03/25 Dental Screening Dental Screen Date: 03/03/25 Did you have a dental visit in the last 12 months?: Yes Did you have a dental problem in the last 6 months where you did not have access to dental care?: No Was dental information given to patient?: Patient has dentist HPI per PT, pt back is not getting better HPI Details 74-year-old lady here today complaining still of pain in her lower back, now more concentrated on her right hip going down her right thigh and into her groin area, aggravated by walking going upstairs and getting out of the car. She had an x-ray done last month which showed no acute fracture or dislocation, parasymphyseal sclerotic changes may be due to osteitis pubis, and mild narrowing of the bilateral hip joints. [facility] Medical History (Updated 03/03/25 @ 12:44 by Michelle Peace MD) Osteitis pubis Deep inguinal pain, right Chronic right hip pain Right hip pain Lumbago Osteopenia of multiple sites Fluid in endometrial cavity Cervical cancer Gastroesophageal reflux disease with esophagitis Degenerative disc disease at L5-S1 level History of nephrolithiasis Osteopenia of left femoral neck Family history of leukemia Rosacea Acquired hypothyroidism Surgical History History of conization of cervix Hx of colonoscopy Family History Father Prostate cancer Mother Breast cancer Brother Essential thrombocytosis Leukemia Maternal Aunt Lung cancer Social History Household Members: None Housing: House Are you a primary technical healthcare consultant to a significant other at home: No Do you presently have visiting nurse or other home services: No Alcohol intake: current Alcohol intake frequency: holidays/special occasions only Patient Tobacco Use Status: Never used Tobacco e-Cigarette/Vaping Use: Never Used Current occupational status: retired Cognitive needs: No Hearing needs: No Vision needs: Yes Questionnaire PHQ-9 Over the last 2 weeks, how often have you been bothered by any of the following problems? Depression Screening Interpretation: Negative Depression Screening Done: Yes Source: Developed by Drs. Jason Mohamud, Freda Hager, Craig Bartholomew and colleagues, with an educational naseem from [employer]. Thrive Questionnaire Date Thrive assessed: 10/22/24 I am a: Patient What is your living situation today?: I have a steady place to live Within the past 12 months, did the food you bought not last and you didn't have the money to get more?: Never true Within the past 12 months, did you worry whether your food would run out before you got money to buy more?: Never true Do you have trouble paying for medicines?: No Do you have trouble getting transportation to medical appointments?: No Do you have trouble paying your heating and electricity bill?: No Do you have trouble taking care of your child, family member or friend?: No Do you have trouble with day-to-day activities such as bathing, preparing meals, shopping, managing finances, etc.?: I choose not to answer this question Are you currently unemployed and looking for a job?: No Are you interested in more education?: No Please select the resources that you would like help with: None Currently or been in a relationship where the following occur: No concerns reported THRIVE Score: 0 GIOVANNA-7 AMB Questionnaire GIOVANNA-7 Date GIOVANNA - 7 assessed: 10/30/23 Source: Developed by Drs. Jason Mohamud, Freda Hager, Craig Bartholomew and colleagues, with an educational naseem from [employer]. Review of Systems Const All systems reviewed & are unremarkable except as noted in HPI and below GI Reports no additional complaints Denies difficulty voiding, Denies dysuria, Denies urinary incontinence and Denie s urinary urgency Physical exam (Primary Care) Vital Signs: Last Vital Signs Temp 97.8 F 03/03/25 12:09 Pulse 65 03/03/25 12:09 Resp 16 03/03/25 12:09 BP 134/76 03/03/25 12:09 Pulse Ox 98 03/03/25 12:09 Oxygen Delivery Method Room Air 03/03/25 12:09 BMI result Body Mass Index 24.3 Tobacco/Smoking Status: Tobacco use Status Tobacco use date assessed 03/03/25 03/03/25 12:10 Patient Tobacco Use Status Never used Tobacco 03/03/25 12:10 e-Cigarette/Vaping Use Never Used 03/03/25 12:10 Depression Screening Interpretation: Negative Thrive Assessment: Date of Thrive Assessment Date Thrive assessed 10/22/24 03/03/25 12:10 Currently or been in a relationship where the following occur: No concerns reported Const Other: oriented x3, no acute distress ambulatory with normal gait [facility] Head: Yes normocephalic Face and sinus: Yes face symmetric Mouth: Normal oral and palatal mucosa present, oropharynx normal and moist mucous membranes Neck Neck: Yes full ROM, Yes no lymphadenopathy and Yes supple Resp Auscultation: clear to auscultation bilaterally Cardio Other: S1-S2 present regular rate and rhythm GI Palpation (GI): Soft to palpation, nontender, no guarding and no masses Auscultation: normal bowel sounds General: Yes no CVA tenderness Back/Spine/Pelvis Other: Slight tenderness on palpation over right inguinal area Back: no CVA tenderness and No back tenderness Skin General skin exam: no rashes or lesions noted Neuro General: gait normal, Normal light touch and pain sensation, no focal motor deficits and CN's II-XI intact bilaterally Extrem General: Yes full ROM, Yes no clubbing, cyanosis or edema, Yes no calf tenderness and Yes normal gait Psych Appearance: grossly normal and well kempt Mental Status: mental status grossly normal Speech and movement: Normal speech and movement present Affect: normal affect Attitude: cooperative Coding Level of Care Code Est Pt Level 4 (29803) Diagnoses Chronic right hip pain M25.551; G89.29 Deep inguinal pain, right R10.31 Osteitis pubis M86.9 Assessment & Plan Assessment & Plan (1) Chronic right hip pain: Code(s): M25.551 - Pain in right hip; G89.29 - Other chronic pain Category: Medical (2) Deep inguinal pain, right: Code(s): R10.31 - Right lower quadrant pain Category: Medical (3) Osteitis pubis: Code(s): M86.9 - Osteomyelitis, unspecified Category: Medical Plan Ordered MRI of right hip without contrast, follow-up after test done Orders: Orders MR hip RT wo con 03/05/25 G89.29 - Other chronic pain, M25.551 - Pain in right hip, R10.31 - Right lower quadrant pain
--- OUTSIDE RECORDS SUMMARY | 2025-03-03 12:47 | XMS_ITS | Patient Health Record ---
Author Organization [facility] Address [address] [place] [address] Care Team Providers Care Science Liaison Name Role Phone Michelle Peace MD Primary Care Provider Jason Brennan Unavailable [phone] Allergies Allergen (clinical drug ingredient) Drug/Non Drug Allergy documented on EMR Reaction Allergy Type Onset Date Status Sulfa rash Drug Allergy Active meperidine Demerol vomiting Drug Allergy Active Reason For Referral No Information Medications Medication SIG (Take, Route, Frequency, Duration) Notes Start Date End Date Status Debrox 6.5 % 5 drops into affecte d ear Otic as directed /monthy Active Saline Nasal [place] 0.65 % as directed Nasally Active Refresh [...] Problem History of polyp of colon (situation) (929453568) Personal history of colonic polyps (Z86.010) Active confirmed Problem Gastroesophageal reflux disease (273047416) Gastroesophageal reflux disease (K21.9) Active confirmed Problem 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) Gastric polyps (K31.7) Active confirmed Problem 689276291 Abnormal barium swallow (R93.3) Active confirmed Problem 65689366 Esophageal dysphagia (R13.10) Active confirmed Problem Diverticulosis of colon (386414801) Diverticulosis of colon (K57.30) Active confirmed Problem 365817409 Gastroesophageal reflux disease, unspecified whether esophagitis present [...] Date MEDICARE OF [place] [address] [facility] [place] [address] [id number] MÓNICA WEBBER Self - patient is the insured [employer] ATT[employer] CLAIMS [address] [place] [address] [id number] MÓNICA WEBBER Self - patient is the insured Medical (General) History Medical History History ICD Code Denies [place],DM,CVA,Lung disease,renal dise ase Cervical cancer as below [...]
== END 2025-03-03 13:22 | disposition home or self-care (01) ==
PROVIDERS: PCP Internal Medicine; Visit Provider Internal Medicine
DX: M25.551 Pain in right hip (principal); G89.29 Other chronic pain; R10.31 Right lower quadrant pain; M86.9 Osteomyelitis, unspecified

== ENCOUNTER → 2025-03-03 11:38 | Outpatient (BNVA) | payer MEDICARE, SELFPAY | PROVIDERS: PCP Internal Medicine; Visit Provider Internal Medicine | DX: R10.31 Right lower quadrant pain (principal); M86.9 Osteomyelitis, unspecified; M25.551 Pain in right hip; G89.29 Other chronic pain | CPT/HCPCS: 99212 ==

== ENCOUNTER → 2025-03-05 19:32 | Outpatient (BNV) | payer MEDICARE, SELFPAY | PROVIDERS: PCP Internal Medicine; Visit Provider Radiology Diagnostic Radiology | DX: S73.191A Other sprain of right hip, initial encounter (principal) | CPT/HCPCS: 73721 ==

== ENCOUNTER 2025-03-05 19:50 | Outpatient (REF) | payer MEDICARE, SELFPAY ==
--- NOTE | ~2025-03-05 | MR_ITS ---
CLINICAL HISTORY: M25.551 - Pain in right hip --- Additional Notes or Special Instructions: Pain in right hip radiating down right inguinal area, worse with prolonged MR right hip without contrast Comparison: CR - XR HIPS SORAYA MIN 3V - 02/07/25 14:16 EDT CR - XR HIPS SORAYA MIN 3V - 02/07/25 14:16 EDT Findings: No fracture line or bone marrow edema. There is subchondral cystic change in the anterior superior aspect of the right acetabulum measuring up to 1.5 cm. No dislocation. Normal alignment without subluxation. No retroversion, over coverage, os acetabuli. Normal head neck angle. No fibrocystic lesion of the femoral neck. No dysplasia. No joint effusion. There is marked increase in signal in labrum of the anterior superior and anterior aspects with discontinuity, indicating tear. There is partial-thickness femoral/ acetabular chondromalacia. There is increase in size and signal of ligamentum teres without complete discontinuity. Otherwise preserved capsule/ligaments. Partial tear of gluteus minimus and medius with a trace amount of adjacent fluid within the bursa. Mild symmetric muscular atrophy. Otherwise unremarkable muscle, tendons and entheses. Normal vessels, nerves and soft tissues. Intrapelvic contents are unremarkable. Impression: Labral tear. Subchondral cystic change in right acetabulum, degenerative. Partial-thickness femoral/acetabular chondromalacia, degenerative. Increase in size and signal of ligamentum teres may indicate partial tear and could be degenerative. Partial tears of gluteus minimus and medius with a trace amount of adjacent fluid within the bursa. This document has been electronically signed by: Harper Waters MD on 03/12/2025 21:45:50
--- OUTSIDE RECORDS SUMMARY | 2025-03-05 19:53 | XMS_ITS | Patient Health Record ---
Author Organization [facility] Address [address] [place] [address] Care Team Providers Care Senior It Engineer Name Role Phone Michelle Peace MD Primary Care Provider Jason Brennan Unavailable [phone] Allergies Allergen (clinical drug ingredient) Drug/Non Drug Allergy documented on EMR Reaction Allergy Type Onset Date Status Sulfa rash Drug Allergy Active meperidine Demerol vomiting Drug Allergy Active Reason For Referral No Information Medications Medication SIG (Take, Route, Frequency, Duration) Notes Start Date End Date Status Debrox 6.5 % 5 drops into affecte d ear Otic as directed /monthy Active Saline Nasal [place] 0.65 % as directed Nasally Active Refresh [...] Problem History of polyp of colon (situation) (969277464) Personal history of colonic polyps (Z86.010) Active confirmed Problem Gastroesophageal reflux disease (K21.9) Active confirmed Problem Benign neoplasm of stomach (72611352) Gastric polyps (K31.7) Active confirmed Problem 047548668 Abnormal barium swallow (R93.3) Active confirmed Problem 20855121 Esophageal dysphagia (R13.10) Active confirmed Problem Diverticulosis of colon (762698353) Diverticulosis of colon (K57.30) Active confirmed Problem 230417597 Gastroesophageal reflux disease, unspecified whether esophagitis present [...] Date MEDICARE OF [place] [address] [place] [address] [id number] MÓNICA WEBBER Self - patient is the insured [employer] ATT[employer] CLAIMS [address] [place] [address] [id number] MÓNICA WEBBER Self - patient is the insured Medical (General) History Medical History History ICD Code Denies [place],DM,CVA,Lung disease,renal dise ase Cervical cancer as below [...]
== END 2025-03-05 19:51 | disposition home or self-care (01) ==
LOC: HO.MRI 19:50
PROVIDERS: PCP Internal Medicine; Visit Provider Internal Medicine
DX: M25.561 Pain in right knee (principal); R10.31 Right lower quadrant pain; G89.29 Other chronic pain
CPT/HCPCS: 73721

== ENCOUNTER 2025-03-24 10:54 | Outpatient (AMB) | payer MEDICARE, SELFPAY ==
--- NOTE | 2025-03-24 11:04 | A.OFFVIS_ITS ---
Vital Signs 03/24/25 11:05 Height 5 ft 1.5 in Weight 130 lb 13.89 oz BMI 24.3 BP 118/64 Blood Pressure Location Rt brachial Position Sitting Pulse 67 Pulse Source Pulse Oximeter Oxygen Delivery Method Room Air Intake Visit Reasons: Osteoporosis Intake Note: Patient present today for Osteoporosis follow up. Load Dropper Required: No Accompanied by: Self / Same As Patient Allergies meperidine (Demerol) Allergy (Unknown, Verified 03/03/25 12:22) Vomiting Sulfa (Sulfonamide Antibiotics) (SULFA (SULFONAMIDE ANTIBIOTICS)) Allergy (Unknown, Verified 03/03/25 12:22) RASH fentanyl Adverse Reaction (Verified 03/03/25 12:22) Vomiting HPI Comments Details: . The patient is a 75-year-old female presenting with concerns regarding low bone mass and osteoporosis management. She has been on raloxifene since 2007 following suspicion of low bone mass and is currently seeking a review of her bone density status. Previous bone density evaluations and their interpretations appear inconsistent to her understanding. Her medical history includes a presum ed episode of kidney stones, with no documentation but assessed due to hematuria. The patient remains active without recent fractures. She has a significant family history of breast cancer, with her mother having been diagnosed later in life. First diagnosed in 2007?. Received treatment in the past with [facility] , from 2007 to present . Tolerated treatment well without complication. - Roloxifene: Prescribed in 2007, with good tolerance reported, no side effects such as hot flashes or blood clots noted. - Past treatment suspicion of low bone mass potentially with bone density evaluations - No history of pathologic fracture or ONJ. No fx since last visit Has several servings of dietary calcium per day in the form of cheese, milk , cottage cheese . Takes Calcium supplement 1200 mg daily in divided doses. Takes 2000 IU of Vitamin D daily. The patient consumes a diet rich in calcium- containing foods, despite not favoring milk. She regularly consumes kale and broccoli daily and includes salmon and tuna in her weekly diet. Spanish cheese and cottage cheese are part of her daily intake, contributing to her calcium consumption. She acknowledges taking Citracal to reach her calcium requirement of 1200 mg if dietary intake falls short. Denies ever using PPI, anticoagulant, antiepileptic or glucocorticoid medication. Not Does weight bearing exercise days per week . The patient reports being physically active, engaging in weight-bearing activity by performing cellar stairs approximately six times per day. Additionally, she participates in stationary biking for 45 minutes daily, underscoring her adherence to exercise beneficial for supporting bone mass. Fracture history: No Height loss: No MINING CAPTAIN history: Menarche at age 10- Menopause at age 47- nl menses Has history of Kidney stones: Denies family history of Osteoporosis or hip fracture. UTD on dental cleanings and sees dentist every 6 months. No planned upcoming dental work or extractions. No tobacco user or heavy ETOH use Mother had breast cancer DXA dated 10/08/24:EXAMINATION: DXA BONE DENSITY AXIAL HISTORY: Estrogen deficiency TECHNIQUE: Center'd Dual energy absorptiometry (DEXA) of the lumbar spine, total left hip, and femoral neck was performed. COMPARISON: Comparison is made with the prior examination dated 08/30/2022. FINDINGS: The bone mineral density of the lumbar spine is 1.137 with a T-score of -0.4, and a Z-score of 1.5. This represents a BMD change of -3.5% compared to the prior exam. This is statistically significant. The bone mineral density of the left total hip is 0.919 with a T-score of -0.7, and a Z-score of 1.1. This represents BMD change of -2.3% compared to the prior exam. This is not statistically significant. The bone mineral density of the left femoral neck is 0.839 with a T-score of -1.4, and a Z-score of 0.6. This represents BMD change of -0.9% compared to the prior exam. FRACTURE RISK: The FRAX index suggests a ten year probability of major osteoporotic fracture of 11.4%, and of hip fracture 2.3%. MM/XR DEXA axial skeleton IMPRESSION: Based on bone mineral density, and according to World Health Organization (WHO) criteria, the diagnosis is consistent with osteopenia. Labs: Secondary workup negative. Last DEXA was stable and bone turnover marker was suppressed the premenopausal range [facility] Medical History (Updated 03/13/25 @ 10:15 by Michelle Peace MD) Labral tear of hip joint Osteitis pubis Deep inguinal pain, right Chronic right hip pain Right hip pain Lumbago Osteopenia of multiple sites Fluid in endometrial cavity Cervical cancer Gastroesophageal reflux disease with esophagitis Degenerative disc disease at L5-S1 level History of nephrolithiasis Osteopenia of left femoral neck Family history of leukemia Rosacea Acquired hypothyroidism Surgical History History of conization of cervix Hx of colonoscopy Family History Father Prostate cancer Mother Breast cancer Brother Essential thrombocytosis Leukemia Maternal Aunt Lung cancer Social History Household Members: None Housing: House Are you a primary primary care pediatrician to a significant other at home: No Do you presently have visiting nurse or other home services: No Alcohol intake: current Alcohol intake frequency: holidays/special occasions only Patient Tobacco Use Status: Never used Tobacco e-Cigarette/Vaping Use: Never Used Current occupational status: retired Cognitive needs: No Hearing needs: No Vision needs: Yes Physical Exam Vital Signs: Last Vital Signs Pulse 67 03/24/25 11:05 BP 118/64 03/24/25 11:05 Oxygen Delivery Method Room Air 03/24/25 11:05 BMI result Body Mass Index 24.3 Assessment & Plan Assessment & Plan (1) Osteopenia of multiple sites: Code(s): M85.89 - Other specified disorders of bone density and structure, multiple sites Category: Medical Plan: This is a 74-year-old white female with a history of low bone mass currently being treated with raloxifene with stable bone density. Secondary workup negative Plan is to continue with the raloxifene. The patient expressed understanding and agreement with the above treatment plan. Patient was informed and verbally consented to the use of an ambient scribe for clinic note documentation during this visit. Coding Level of Care Code Est Pt Level 3 (95354) Diagnoses Osteopenia of multiple sites M85.89
[2025-03-24 11:05] VITALS: BP 118/64; PULSE 67; BMI 24.3
--- OUTSIDE RECORDS SUMMARY | 2025-03-24 11:53 | XMS_ITS | Patient Health Record ---
Author Organization [facility] Address [address] [place] [address] Care Team Providers Care Carcass Washer Name Role Phone Michelle Peace MD Primary Care Provider Jason Brennan Unavailable [phone] Allergies Allergen (clinical drug ingredient) Drug/Non Drug Allergy documented on EMR Reaction Allergy Type Onset Date Status Sulfa rash Drug Allergy Active meperidine Demerol vomiting Drug Allergy Active Reason For Referral No Information Medications Medication SIG (Take, Route, Frequency, Duration) Notes Start Date End Date Status Debrox 6.5 % 5 drops into affecte d ear Otic as directed /monthy Active Saline Nasal [place] 0.65 % as directed Nasally Active Refresh [...] Problem History of polyp of colon (situation) (199947787) Personal history of colonic polyps (Z86.010) Active confirmed Problem Gastroesophageal reflux disease (473364741) Gastroesophageal reflux disease (K21.9) Active confirmed Problem Benign neoplasm of stomach (69786292) Gastric polyps (K31.7) Active confirmed Problem 208571360 Abnormal barium swallow (R93.3) Active confirmed Problem 43594286 Esophageal dysphagia (R13.10) Active confirmed Problem Diverticulosis of colon (048483759) Diverticulosis of colon (K57.30) Active confirmed Problem 046723703 Gastroesophageal reflux disease, unspecified whether esophagitis present [...] Date MEDICARE OF [place] [address] [facility] [place] [address] [phone] [id number] MÓNICA WEBBER Self - patient is the insured [employer] ATT[employer] CLAIMS [address] [place] [address] [id number] MÓNICA WEBBER Self - patient is the insured Medical (General) History Medical History History ICD Code Denies [place],DM,CVA,Lung disease,renal dise ase Cervical cancer as below [...]
== END 2025-03-24 11:52 | disposition home or self-care (01) ==
LOC: HO.ENCR 10:55
PROVIDERS: PCP Internal Medicine; Visit Provider Internal Medicine Endocrinology, Diabetes & Metabolism
DX: M85.89 Other specified disorders of bone density and structure, multiple sites (principal)
CPT/HCPCS: 99213

== ENCOUNTER → 2025-03-24 10:54 | Outpatient (BNVA) | payer MEDICARE, SELFPAY | PROVIDERS: PCP Internal Medicine; Visit Provider Internal Medicine Endocrinology, Diabetes & Metabolism | DX: M85.89 Other specified disorders of bone density and structure, multiple sites (principal) | CPT/HCPCS: 99212 ==

== ENCOUNTER 2025-04-07 10:40 | Outpatient (AMB) | payer MEDICARE, SELFPAY ==
--- NOTE | 2025-04-07 10:44 | A.OFFVIS_ITS ---
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 Patient was referred by her PCP where she reported her pain started in her lower back but now more present in the right hip/groin and radiat ing down the right thigh.She also explains a numbness, tingling and burning pain in the entire hip that does not radiate Patient reports that about 5 months ago she overdid acitivties arount the house and outside. She is taking Tylenol Arthritis which is mildly helpful. 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 Patient was referred by her PCP where she reported her pain started in her lower back but now more present in the right hip/groin and radiating down the right thigh. She is actually getting better over the last 3- 4 months. She describes a numbness and tingling over the anterolateral hip and thigh is being her primary complaint. She does also endorse back pain. The numbness and tingling do not radiate down her leg. She states there is some radiation into the groin. She does not however describe groin pain or difficulty with daily tasks. [facility] Medical History (Updated 03/13/25 @ 10:15 by Michelle Peace MD) Labral tear of hip joint Osteitis pubis Deep inguinal pain, right Chronic right hip pain Right hip pain Lumbago Osteopenia of multiple sites Fluid in endometrial cavity Cervical cancer Gastroesophageal reflux disease with esophagitis Degenerative disc disease at L5-S1 level History of nephrolithiasis Osteopenia of left femoral neck Family history of leukemia Rosacea Acquired hypothyroidism Surgical History History of conization of cervix Hx of colonoscopy Family History Father Prostate cancer Mother Breast cancer Brother Essential thrombocytosis Leukemia Maternal Aunt Lung cancer Social History Household Members: None Housing: House Are you a primary day care worker to a significant other at home: No Do you presently have visiting nurse or other home services: No Alcohol intake: current Alcohol intake frequency: holidays/special occasions only Patient Tobacco Use Status: Never used Tobacco e-Cigarette/Vaping Use: Never Used Current occupational status: retired Cognitive needs: No Hearing needs: No Vision needs: Yes Physical Exam Vital Signs: BMI result Body Mass Index 24.2 Extrem Other: On exam she has a normal gait. There is no tenderness to palpation over the hip. She has full range motion of bilateral hips without pain. She has a negative impingement test. Negative Stinchfield with a positive straight leg raise bilaterally. Results Reviewed Results Reviewed: I personally reviewed relevant radiographs. Normal hip radiographs I personally reviewed the MR images. Impression: Labral tear. Subchondral cystic change in right acetabulum, degenerative. Partial-thickness femoral/acetabular chondromalacia, degenerative. Increase in size and signal of ligamentum teres may indicate partial tear and could be degenerative. Partial tears of gluteus minimus and medius with a trace amount of adjacent fluid within the bursa. Assessment & Plan Assessment & Plan (1) Back pain: Code(s): M54.9 - Dorsalgia, unspecified Category: Medical Qualifiers: Back pain location: thoracic back pain Chronicity: chronic Back pain laterality: bilateral Qualified Code(s): M54.6 - Pain in thoracic spine; G89.29 - Other chronic pain Plan: I suspect that some of her numbness and tingling are coming from her back. She also has back pain. Her pain and numbness tingling however are improving and she is working on core strengthening with physical therapy. I recommend she continue this regimen. No additional intervention warranted. If she starts to deteriorate or her symptoms return she can return to see me. (2) Labral tear of hip joint: Code(s): S73.199A - Other sprain of unspecified hip, initial encounter Category: Medical Plan: This is a 75-year-old woman with a MRI demonstrating some chondromalacia and labral tearing. The MRI is not worrisome and her radiographs are benign. Her physical exam however is totally unremarkable which is mildly surprising. At this point there is no orthopedic intervention warranted for the right hip. Coding Level of Care Code New Pt Level 4 (49885) Diagnoses Chronic bilateral thoracic back pain M54.6; G89.29 Back pain location: thoracic back pain Chronicity: chronic Back pain laterality: bilateral Labral tear of hip joint S73.199A
[2025-04-07 10:45] VITALS: BMI 24.2
--- OUTSIDE RECORDS SUMMARY | 2025-04-07 11:42 | XMS_ITS | Patient Health Record ---
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 Name Role Phone Michelle Peace MD Primary Care Provider Jason Brennan Unavailable [phone] Allergies Allergen (clinical drug ingredient) Drug/Non Drug Allergy documented on EMR Reaction Allergy Type Onset Date Status Sulfa rash Drug Allergy Active meperidine Demerol vomiting Drug Allergy Active Reason For Referral No Information Medications Medication SIG (Take, Route, Frequency, Duration) Notes Start Date End Date Status Debrox 6.5 % 5 drops into affecte d ear Otic as directed /monthy Active Saline Nasal [place] 0.65 % as directed Nasally Active Refresh [...] Problem History of polyp of colon (situation) (583450013) Personal history of colonic polyps (Z86.010) Active confirmed Problem Gastroesophageal reflux disease (286883207) Gastroesophageal reflux disease (K21.9) Active confirmed Problem Benign neoplasm of stomach (32559115) Gastric polyps (K31.7) Active confirmed Problem 774584157 Abnormal barium swallow (R93.3) Active confirmed Problem 27762042 Esophageal dysphagia (R13.10) Active confirmed Problem Diverticulosis of colon (370884341) Diverticulosis of colon (K57.30) Active confirmed Problem 454082055 Gastroesophageal reflux disease, unspecified whether esophagitis present [...] MEDICARE OF [place] [address] [facility] [place] [address] [id number] MÓNICA WEBBER Self - patient is the insured [employer] ATT[employer] CLAIMS [address] [place] [address] [id number] MÓNICA WEBBER Self - patient is the [...]
== END 2025-04-07 11:27 | disposition home or self-care (01) ==
LOC: HO.HOS 10:42
PROVIDERS: PCP Internal Medicine; Visit Provider Orthopaedic Surgery
DX: M54.6 Pain in thoracic spine (principal); G89.29 Other chronic pain; S73.199A Other sprain of unspecified hip, initial encounter
CPT/HCPCS: 99203

== ENCOUNTER → 2025-04-07 10:40 | Outpatient (BNVA) | payer MEDICARE, SELFPAY | PROVIDERS: PCP Internal Medicine; Visit Provider Orthopaedic Surgery | DX: S73.191A Other sprain of right hip, initial encounter (principal); M54.6 Pain in thoracic spine; G89.29 Other chronic pain | CPT/HCPCS: 99202 ==

== ENCOUNTER 2025-05-07 09:24 | Outpatient (AMB) | payer MEDICARE, SELFPAY ==
--- NOTE | 2025-05-07 09:56 | AM.OFFVISMDC ---
Intake Vital Signs 05/07/25 10:12 Height 5 ft 1.5 in Weight 131 lb BMI 24.3 BP 120/66 Blood Pressure Location Rt brachial Position Sitting Pulse 68 Pulse Source Pulse Oximeter Temp 98.1 F Temp Source Oral Pulse Oximetry (%) 98 Oxygen Delivery Method Room Air Intake Visit Reasons: SWV G0439 Intake Note: Pt is here today for her SWV: last mammogram 10/08/24, bone density scan 10/08/24, colonoscopy 06/11/21 Allergies meperidine (Demerol) Allergy (Unknown, Verified 05/07/25 16:30) Vomiting Sulfa (Sulfonamide Antibiotics) (SULFA (SULFONAMIDE ANTIBIOTICS)) Allergy (Unknown, Verified 05/07/25 16:30) RASH fentanyl Adverse Reaction (Verified 05/07/25 16:30) Vomiting Medication List - Last Reconciled 05/07/25 by Michelle Peace MD acetaminophen 1,000 mg (2 x 500 mg) PO Q6H PRN calcium citrate-vitamin D3 315 mg-6.25 mcg (250 unit) (Citracal + Vitamin D Maximum) 1 tab PO DAILY cholecalciferol (vitamin D3) 50 mcg PO DAILY ibuprofen (Advil) 200 mg PO Q6H PRN meclizine 12.5 mg PO DAILY PRN raloxifene 60 mg PO DAILY Synthroid (levothyroxine) Take 1 tab alternating with 1/2 tablet every other day PO daily; 90 days NS Yuvafem (estradiol) 10 mcg vaginal 2XW NS HPI SWV G0439 HPI Details SWV ? 75 year old lady with history of osteopenia left femoral neck, history of right labral tear, hypothyroidism , here today for her subsequent annual wellness visit. She is up-to-date with her screening mammogram ( benign findinfs) and bone density scan done 10/08/2024 which showed presence of osteopenia left femoral neck currently on raloxifene. No history of fractures. She had normal fasting lipid panel and fasting blood sugar check done 10/30/2024. Screening colonoscopy was done 06/11/[address] Mcnamara with normal findings, to be repeated again in 2030. She had a life line screening tests done 04/03/2025 which showed normal carotids, no stenosis, no evidence of atrial fibrillation, no evidence of abdominal aortic aneurysm and no evidence of peripheral arterial disease with a normal ARABELLA. She is up-to-date with her COVID vaccinations, gets yearly flu shots, up-to-date with her pneumonia vaccination, Shingrix vaccine, Tdap and RSV vaccine. ? Medical / Social History Reviewed? Past Medical History ?Yes . ? [place] of Care / Care Team list updated ?Yes . ? Surgical/Hospitalization History ?Yes . ? Current Medications (including OTC and supplements) ?Yes . ? Family History ?Yes . ? Tobacco Control form ?Yes . ? AUDIT-C (Alcohol use) form ?Yes . ? Illicit drug use in Social History ?Yes . ? Current diagnosis of depression? ?No ? Appropriate PHQ2/PHQ9 completed ?Yes . ? Data entered by ?Etcher Hand and reviewed by provider ? Fall Risk ? Fall History? Have you had any falls with injury in the past year? ?No . ? Have you had two or more falls in the past year? ?No . ? Fall Risk Assessment: ?No falls in the past year . ? HRA filled out by the patient, reviewed by Provider and scanned. ? SWV ? Balance? Romberg ?negative ? Tandem walk ?Yes . ? Walk and Turn ?Yes . ? Rise from sit to stand ?Yes . ?Vision? Corrective lens ?Yes ? Vision screen ? Up-to-date, she sees Dr. Acosta for her vision screening and glaucoma screening ?Hearing? Whisper test ?pass . ?Written Plan?Completed. See Patient Documents.? [facility] Medical History (Updated 05/07/25 @ 16:45 by Michelle Peace MD) Vasomotor symptoms due to menopause Labral tear of hip joint Osteitis pubis Fluid in endometrial cavity Cervical cancer Gastroesophageal reflux disease with esophagitis Degenerative disc disease at L5-S1 level History of nephrolithiasis Osteopenia of left femoral neck Family history of leukemia Rosacea Acquired hypothyroidism Surgical History History of conization of cervix Hx of colonoscopy Family History Father Prostate cancer Mother Breast cancer Brother Essential thrombocytosis Leukemia Maternal Aunt Lung cancer Social History Household Members: None Housing: House Are you a primary college and career counselor to a significant other at home: No Do you presently have visiting nurse or other home services: No Alcohol intake: current Alcohol intake frequency: holidays/special occasions only Patient Tobacco Use Status: Never used Tobacco e-Cigarette/Vaping Use: Never Used Current occupational status: retired Cognitive needs: No Hearing needs: No Vision needs: Yes Female Reproductive History Menstrual Date of Mammogram: 10/08/24 Date of last Bone Density Screenin10/08/24 Questionnaire Medicare Wellness Checkup [age] What gender do you identify with?: female During the past 4 weeks, how much have you been bothered by emotional problems such as feeling anxious, depressed, irritable, sad or downhearted, and blue?: not at all During the past 4 weeks, has your physical & emotional health limited your social activities with family, friends, neighbors, or groups?: not at all During the past 4 weeks, how much bodily pain have you generally had?: no pain During the past 4 weeks, was someone available to help you if you needed & wanted help?: yes, as much as I wanted During the past 4 weeks, what was the hardest physical activity you could do for at least 2 minutes?: light Can you get to places out of walking distance without help? (For eg., can you travel alone on buses, taxis or drive your car?): Yes Can you go shopping for groceries or clothes without someone's help?: Yes Can you prepare your own meals?: Yes Can you do your housework without help?: Yes Because of any health problems, do you need the help of another person with your personal care needs such as eating, bathing, dressing or getting around the house?: No Can you handle your own money without help?: Yes During the past 4 weeks, how would you rate your health in general?: very good Are you having difficulties driving your car?: no Do you always fasten your seat belt when you are in a car?: yes, usually During past 4 weeks, have you been bothered by the following: never: Falling or dizzy when standing up, Trouble eating well?, Teeth or denture problems?, Problems using the telephone? and Tiredness or fatigue? Have you fallen 2 or more times in the past year?: No Are you afraid of falling?: No Are you a smoker?: no During the past 4 weeks, how many drinks of wine, beer, or other alcoholic beverages did you have?: no alcohol at all Do you exercise for about 20 minutes 3 or more times a week?: yes, all the time Have you been given information to help with the following?: yes: Hazards in your house that might hurt you? and yes: Keeping track of your medications? How often do you have trouble taking medicines the way you have been told to take them?: I always take medicine as prescribed How confident are you that you can control & manage most of your health problems?: very confident What is your race?: White Mini Mental State Exam (MMSE) Orientation What is the (year) (season) (date) (day) (month)?: year (2024), season (summer), date (05/07/25), day (Monday) and month (Apr ) Where are we (state) (county) (town or city) (hospital) (floor)?: state ([facility]), county ([place]), town or city ([place] ) and [place]inic [place] Score Score: 9 Activity of Daily Living Bathing - sponge bath, tub bath or shower: receives no assistance (gets in/out by self, if usual bathing means Dressing - getting clothes from closets & drawers, including inner/outer garments & fasteners.: gets clothes & gets completely dressed without help Toileting - going to the 'toilet room' for urine/bowel elimination & cleaning self/arranging clothes: goes to toilet room, cleans self, arranges clothes without help Transfer: moves in & out of bed and chair without help (may use support object) Continence: controls urination/bowel movements completely by self Feeding: feeds self without help Total Score: 0 Information obtained from: patient Using telephone: independent Traveling: independent Shopping: independent Preparing meals: independent Housework: independent Taking medicine: independent Managing money: independent PHQ-9 Over the last 2 weeks, how often have you been bothered by any of the following problems? 1. Little interest or pleasure in doing things: not at all 2. Feeling down, depressed, or hopeless: not at all 3. Trouble falling or staying asleep, or sleeping too much: not at all 4. Feeling tired or having little energy: not at all 5. Poor appetite or overeating: not at all 6. Feeling bad about yourself - or that you are a failure or have let yourself or your family down: not at all 7. Trouble concentrating on things, such as reading the newspaper or watching television: not at all 8. Moving or speaking so slowly that other people could have noticed. Or the opposite - being so fidgety or restless that you have been moving around a lot more than usual: not at all 9. Thoughts that you would be better off or of hurting yourself in some way: not at all Total score: 0 Depression Screening Interpretation: Negative Depression Screening Done: Yes 27853 - PHQ-9 Billing: Yes Source: Developed by Drs. Jason Mohamud, Freda Hager, Craig Bartholomew and colleagues, with an educational naseem from [employer]. Physical Exam Vital Signs: Last Vital Signs Temp 98.1 F 05/07/25 10:12 Pulse 68 05/07/25 10:12 BP 120/66 05/07/25 10:12 Pulse Ox 98 05/07/25 10:12 Oxygen Delivery Method Room Air 05/07/25 10:12 BMI result Body Mass Index 24.3 Assessment & Plan Assessment & Plan (1) Acquired hypothyroidism: Code(s): E03.9 - Hypothyroidism, unspecified Plan: Currently on Synthroid (2) Osteopenia of left femoral neck: Code(s): M85.852 - Other specified disorders of bone density and structure, left thigh Plan: On raloxifene 60 mg daily, , vitamin D3 supplements and takes calcium supplements as well (3) Vasomotor symptoms due to menopause: Code(s): N95.1 - Menopausal and female climacteric states Plan: Yuvafem 10 mcg transvaginal twice a day (4) Intermittent lightheadedness: Code(s): R42 - Dizziness and giddiness Plan: Rx sent for meclizine 1.5 mg 1 tablet once a day as needed for intermittent episodes of lightheadedness Orders: Orders Vitamin D 25-OH Total 6 Months E03.9 - Hypothyroidism, unspecified, K21.00 - Gastro-esophageal reflux disease with esophagitis, without bleeding, M85.852 - Other specified disorders of bone density and structure, left thigh, Z78.0 - Asymptomatic menopausal state Lipid Panel 6 Months E03.9 - Hypothyroidism, unspecified, K21.00 - Gastro-esophageal reflux disease with esophagitis, without bleeding, M85.852 - Other specified disorders of bone density and structure, left thigh, Z78.0 - Asymptomatic menopausal state Triiodothyronine T3 Free 6 Months E03.9 - Hypothyroidism, unspecified, K21.00 - Gastro-esophageal reflux disease with esophagitis, without bleeding, M85.852 - Other specified disorders of bone density and structure, left thigh, Z78.0 - Asymptomatic menopausal state Thyroid Stimulating Hormone 6 Months E03.9 - Hypothyroidism, unspecified, K21.00 - Gastro-esophageal reflux disease with esophagitis, without bleeding, M85.852 - Other specified disorders of bone density and structure, left thigh, Z78.0 - Asymptomatic menopausal state Free T4 (Free Thyroxine) 6 Months E03.9 - Hypothyroidism, unspecified, K21.00 - Gastro-esophageal reflux disease with esophagitis, without bleeding, M85.852 - Other specified disorders of bone density and structure, left thigh, Z78.0 - Asymptomatic menopausal state Alanine Aminotransferase 6 Months E03.9 - Hypothyroidism, unspecified, K21.00 - Gastro-esophageal reflux disease with esophagitis, without bleeding, M85.852 - Other specified disorders of bone density and structure, left thigh, Z78.0 - Asymptomatic menopausal state Aspartate Amino Transferase 6 Months E03.9 - Hypothyroidism, unspecified, K21.00 - Gastro-esophageal reflux disease with esophagitis, without bleeding, M85.852 - Other specified disorders of bone density and structure, left thigh, Z78.0 - Asymptomatic menopausal state Basic Metabolic Panel Fasting 6 Months E03.9 - Hypothyroidism, unspecified, K21.00 - Gastro-esophageal reflux disease with esophagitis, without bleeding, M85.852 - Other specified disorders of bone density and structure, left thigh, Z78.0 - Asymptomatic menopausal state Medications: New meclizine 12.5 mg PO DAILY PRN 30 tabs 0RF dizziness Quality Reporting (2019) Depression/Bipolar (159/160/161/177) PHQ-9: Total score: 0 Coding Level of Care Code Medicare Subsequent (G0439) Diagnoses Acquired hypothyroidism E03.9 Osteopenia of left femoral neck M85.852 Vasomotor symptoms due to menopause N95.1 Intermittent lightheadedness R42 CPT Codes Advance Care Planning - Advance Care Planning discussion: On file, no changes ([id number]) Advance Care Planning - Time spent: 1-15 minutes, on File ([id number]) Additional Codes PHQ-9 - 90785 - PHQ-9 Billing: Yes ([id number]) Advance Care Planning Advance Care Planning discussion: On file, no changes Date of discussion: 12/04/20 Who was present: Patient Forms completed: Health Care Proxy Time spent: 1-15 minutes, on File Actual minutes spent: 1
[2025-05-07 10:12] VITALS: BP 120/66; PULSE 68; TEMP 36.7; O2SAT 98; BMI 24.3
--- OUTSIDE RECORDS SUMMARY | 2025-05-07 11:06 | XMS_ITS | Patient Health Record ---
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 Name Role Phone Michelle Peace MD Primary Care Provider Jason Brennan Unavailable [phone] Allergies Allergen (clinical drug ingredient) Drug/Non Drug Allergy documented on EMR Reaction Allergy Type Onset Date Status Sulfa rash Drug Allergy Active meperidine Demerol vomiting Drug Allergy Active Reason For Referral No Information Medications Medication SIG (Take, Route, Frequency, Duration) Notes Start Date End Date Status Debrox 6.5 % 5 drops into affecte d ear Otic as directed /monthy Active Saline Nasal [place] 0.65 % as directed Nasally Active Refresh [...] Problem History of polyp of colon (situation) (150351186) Personal history of colonic polyps (Z86.010) Active confirmed Problem Gastroesophageal reflux disease (169150261) Gastroesophageal reflux disease (K21.9) Active confirmed Problem Benign neoplasm of stomach (03735184) Gastric polyps (K31.7) Active confirmed Problem 570417880 Abnormal barium swallow (R93.3) Active confirmed Problem 64432812 Esophageal dysphagia (R13.10) Active confirmed Problem Diverticulosis of colon (059352654) Diverticulosis of colon (K57.30) Active confirmed Problem 524430249 Gastroesophageal reflux disease, unspecified whether esophagitis present [...] MEDICARE OF [place] [address] [facility] [place] [address] [id number] MÓNICA WEBBER Self - patient is the insured [employer] ATTN CLAIMS [address] [place] [address] [id number] MÓNICA WEBBER Self - patient is the [...]
== END 2025-05-07 11:02 | disposition home or self-care (01) ==
LOC: HO.HMCC 09:25
PROVIDERS: PCP Internal Medicine; Visit Provider Internal Medicine
DX: Z00.00 Encounter for general adult medical examination without abnormal findings (principal); E03.9 Hypothyroidism, unspecified; M85.852 Other specified disorders of bone density and structure, left thigh; N95.1 Menopausal and female climacteric states; R42 Dizziness and giddiness

== ENCOUNTER → 2025-05-07 09:24 | Outpatient (BNVA) | payer MEDICARE, SELFPAY | PROVIDERS: PCP Internal Medicine; Visit Provider Internal Medicine | DX: M85.852 Other specified disorders of bone density and structure, left thigh (principal); E03.9 Hypothyroidism, unspecified; N95.1 Menopausal and female climacteric states; R42 Dizziness and giddiness | CPT/HCPCS: 96127 ==

== ENCOUNTER → 2025-08-02 09:44 | Outpatient (BNV) | payer MEDICARE, SELFPAY | PROVIDERS: PCP Internal Medicine; Visit Provider Radiology Diagnostic Radiology | DX: M47.815 Spondylosis without myelopathy or radiculopathy, thoracolumbar region (principal); M41.56 Other secondary scoliosis, lumbar region; M51.27 Other intervertebral disc displacement, lumbosacral region | CPT/HCPCS: 72148 ==

== ENCOUNTER 2025-08-02 09:47 | Outpatient (REF) | payer MEDICARE, SELFPAY ==
--- NOTE | ~2025-08-02 | MR_ITS ---
EXAMINATION: MR LUMBAR SPINE WITHOUT CONTRAST CLINICAL INFORMATION: M41.56. Other secondary scoliosis, lumbar region. COMPARISON: Correlated to x-ray dated January 24, 2025. Correlated to CT abdomen pelvis dated September 2018. TECHNIQUE: MRI of the lumbar spine was obtained using routine sequences without contrast. FINDINGS: Last rib-bearing vertebra labeled T12. Bone marrow STIR signal within the vertebral bodies of L1-L2 and to a lesser extent T10-11 and likely extending into the right pedicles of L1 and L2. There is a levoconvex rotoscoliosis apex at L1 to. There is a grade 1 anterolisthesis at L5-S1 and L4-5 levels. Grade 1 retrolisthesis at L2-3, L1-2 and likely L3-4 levels. Conus medullaris ends at pedicle of L1 with normal signal. There is dural ectasia and likely post bilateral laminectomy versus spina bifida at L5-S1. T12-L1: No herniated disc. No neuroforamina stenosis. L1-2: Right subarticular and foraminal and extraforaminal disc herniation resulting in right neuroforamina and stenosis reducing the AP diameter of the thecal sac compressing the right L1 nerve root, encroaching right L2 nerve root. L2-3: Broad-based disc bulging. Facet joint hypertrophy. No central spinal canal stenosis. Bilateral neuroforamina narrowing. L3-4: Broad-based disc bulging. Facet joint hypertrophy. No central spinal canal stenosis. Bilateral neuroforamina stenosis encroaching the L3 exiting nerve roots. L4-5: Grade 1 anterolisthesis reducing the AP diameter of the thecal sac and bilateral neuroforamina stenosis encroaching the L5 and L4 nerve roots. L5-S1: Grade 1 anterolisthesis resulting in bilateral neuroforamina stenosis encroaching the L5 nerve roots.. Dorsal dural ectasia and absent posterior elements. No prevertebral compartment hematoma, mass or fluid collection. MR/MR lumbar spine wo con IMPRESSION: Multilevel thoracolumbar spondylosis and levoconvex rotoscoliosis apex at L1 to with a grade 1 anterolisthesis at L4-5 and L5-S1 and grade 1 retrolisthesis L1 to, L2-3 and likely L3-4 levels. Dural ectasia with absent posterior elements at L5-S1. Electronically signed by: Rodrick Moody MD 08/04/2025 09:29 AM EST
--- OUTSIDE RECORDS SUMMARY | 2025-08-02 09:49 | XMS_ITS | Patient Health Record ---
Author Organization [facility] Address [address] [place] [address] Care Team Providers Care Asset Management Lead Name Role Phone Michelle Peace MD Primary Care Provider Jason Brennan Unavailable [phone] Allergies Allergen (clinical drug ingredient) Drug/Non Drug Allergy documented on EMR Reaction Allergy Type Onset Date Status meperidine Demerol vomiting Drug Allergy Active Sulfa rash Drug Allergy Active Reason For Referral No Information Medications Medication SIG (Take, Route, Frequency, Duration) Notes Start Date End Date Status Debrox 6.5 % Solution 5 drops into affec elisa ear Otic as directed /monthy Active Saline Nasal [place] 0.65 % Solution as directed Nasally Active Refresh 1.4-0.6 % Solution as directed Ophthalmic Active Pseudoephedrine HCl 30 MG Tablet 2 tablets as needed Orally every 6 hrs Active Raloxifene HCl 60 MG Tablet Orally Active Yuvafem 10 MCG Tablet Vaginal Active Citracal Slow Release Active Pantoprazole Sodium 40 MG Tablet Delayed Release Oral; Duration: 30 Active Synthroid 50 MCG Tablet 1 tablet Orally Once a day Active Vitamin D3 1000 UNIT Capsule 1 capsule O rally Once a day Active Tylenol Extra Strength 500 M G Tablet 1 tablet as needed Orally every 6 hrs Active Meclizine HCl 25 MG Tablet Chewable 1 tablet as needed Orally Once a day/prn Active Immunizations Vaccine Route Administration Date Status Comme nts Influenza Unknown 04/21/2020 Administered Social History Social History Drugs/Alcohol: Social Info Question Answer Notes Alcohol Screen Did you have a drink containing alcohol in the past year? Yes How often did you have a drink containing alcohol in the past year? Monthly or less (1 point) How many drinks did you have on a typical day when you were drinking in the past year? 1 or 2 drinks (0 point) How often did you have 6 or more drinks on one occasion in the past year? 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 Section Notes: Nonsmoker; no significant al cohol use. Nonsmoker; no significant al cohol use. Nonsmoker; no significant al cohol use. Problems Problem Type SNOMED Code ICD Code Onset Dates Problem Status W/U Status Risk Notes Problem History of polyp of colon (situation) (533654540) Personal history of colonic polyps (Z86.010) Active confirmed Problem Gastroesophageal reflux disease (668124101) Gastroesophageal reflux disease (K21.9) Active confirmed Problem Benign neoplasm of stomach (88464802) Gastric polyps (K31.7) Active confirmed Problem Barium swallow abnormal (815195759) Abnormal barium swallow (R93.3) Active confirmed Problem Esophageal dysphagia (46478340) Esophageal dysphagia (R13.10) Active confirmed Problem Diverticulosis of colon (475295543) Diverticulosis of colon (K57.30) Active confirmed Problem Gastroesophageal reflux disease (820563940) Gastroesophageal reflux disease, unspecified whether esophagitis present [...] OF [place] [address] [place] [address] [id number] MÓNICA WEBBER Self - patient is the insured [employer] CLAIM[employer] [address] [place] [address] [phone] [id number] MÓNICA WEBBER Self - patient is the insured Medical (General) History Medical History History ICD Code Denies [place],DM,CVA,Lung disease,renal dise ase Cervical cancer as below 1982 A small tubular adenoma spencer sheree in 2001, with subsequent negative colonoscopies in 2004 and 2009, other than some sigmoid diverticulosis and internal hemorrhoids Hypothyroidism Kidney stone Colonoscopy 2014 with a small tubular ad enoma removed from the cecum Negative colonoscopy in 05/2021 Surgical History Surgery Date(Month/Year) Cervical conization 1982
== END 2025-08-02 09:48 | disposition home or self-care (01) ==
LOC: HO.MRI 09:47
PROVIDERS: PCP Internal Medicine; Visit Provider Internal Medicine
DX: M51.369 Other intervertebral disc degeneration, lumbar region without mention of lumbar back pain or lower extremity pain (principal); M41.56 Other secondary scoliosis, lumbar region; M47.816 Spondylosis without myelopathy or radiculopathy, lumbar region
CPT/HCPCS: 72148